=== PATIENT | female | born 1995 | race Caucasian/White ===

== ENCOUNTER 2018-05-23 00:42 | Emergency (ER) | payer OTHER ==
[2018-05-23] MEDS ORDERED: Sodium Chloride 0.9% 1000 ML 1,000 ML IV STA (01:12)
[2018-05-23] MEDS ORDERED: BENADRYL 50 MG/ML IV ONE (01:12)
[2018-05-23] MEDS ORDERED: Reglan 10 MG/2 ML IV ONE (01:12)
--- NOTE | 2018-05-23 01:17 | ERPHSYRPT ---
- History of Present Illness Time Seen by Provider: 05/23/18 01:08 Source: patient Exam Limitations: no limitations Patient Subjective Stated Complaint: pt states she has had a headache since early yesterday morning. Triage Nursing Assessment: pt alert and oriented, answers questions approp. pt ambulatory with steady gait noted. respirations nonlabored with lungs cta. skin pink warm and dry. pupls equal and reactive . no facial droop noted. Physician History: 22-year-old morbidly obese white female with history of anxiety, panic disorder , depression, migraines Arrives with complaint of left-sided headache nausea vomiting photophobia symptoms since yesterday. She denies any fevers. Past medical history includes anxiety, panic disorder, depression, migraines. Past surgical history includes tonsillectomy and adenoidectomy. . Social history positive for tobacco use patient denies alcohol or illicit drug use. Timing/Duration: yesterday Severity: moderate Modifying Factors: Improves With: nothing Associated Symptoms: nausea, vomiting, headaches, No abdominal pain, No shortness of breath, No heartburn, No diaphoresis, No cough, No chills, No chest pain, No fever, No loss of appetite, No malaise, No rash, No syncope, No seizure, No weakness Allergies/Adverse Reactions: latex Allergy (Mild, Verified 05/23/18 01:07) Rash Home Medications: No Reportable Medications [No Reported Medications] 05/23/18 [History] Hx Tetanus, Diphtheria Vaccination/Date Given: Yes Hx Influenza Vaccination/Date Given: No Hx Pneumococcal Vaccination/Date Given: No Immunizations Up to Date: Yes - Review of Systems Constitutional: No Fever, No Chills Eyes: Photophobia, No Discharge, No Eye Pain, No Eye Redness, No Itchy, No Tearing, No Vision Changes, No Double Vision, No Foreign Body Sensation Ears, Nose, & Throat: No Symptoms Respiratory: No Cough, No Dyspnea Cardiac: No Chest Pain, No Edema, No Syncope Abdominal/Gastrointestinal: No Abdominal Pain, No Nausea, No Vomiting, No Diarrhea Genitourinary Symptoms: No Dysuria Musculoskeletal: No Back Pain, No Neck Pain Skin: No Rash Neurological: Headache Psychological: No Symptoms Endocrine: No Symptoms All Other Systems: Reviewed and Negative - Past Medical History Pertinent Past Medical History: Yes Neurological History: No Pertinent History ENT History: No Pertinent History Cardiac History: No Pertinent History Respiratory History: No Pertinent History Endocrine Medical History: No Pertinent History Musculoskeletal History: No Pertinent History GI Medical History: No Pertinent History History: No Pertinent History Psycho-Social History: Anxiety, Bipolar, Depression, Panic Disorder Female Reproductive Disorders: No Pertinent History Other Medical History: swelling in lower ext with chronic wounds - Past Surgical History Past Surgical History: Yes Neuro Surgical History: No Pertinent History Cardiac: No Pertinent History Respiratory: No Pertinent History Gastrointestinal: No Pertinent History Genitourinary: No Pertinent History Musculoskeletal: No Pertinent History Female Surgical History: No Pertinent History, Section Other Surgical History: T&A - Social History Smoking Status: Current every day smoker How long have you smoked: 2 yr Exposure to second hand smoke: Yes Drug Use: none Patient Lives Alone: No - Female History Hx Last Menstrual Period: last month Hx Now: No - Nursing Vital Signs Nursing Vital Signs: Initial Vital Signs Temperature 98.7 F 05/23/18 00:56 Pulse Rate 100 H 05/23/18 00:56 Respiratory Rate 20 05/23/18 00:56 Blood Pressure 120/77 05/23/18 00:56 O2 Sat by Pulse Oximetry 97 05/23/18 00:56 Pain Scale Pain Intensity 4 - Physical Exam General Appearance: mild distress Eye Exam: PERRL/EOMI, eyes nml inspection, photophobia, other (fundi unremarkable) Ears, Nose, Throat Exam: normal ENT inspection, TMs normal, pharynx normal, moist mucous membranes Neck Exam: normal inspection, non-tender, supple, full range of motion Respiratory Exam: normal breath sounds, lungs clear, No respiratory distress Cardiovascular Exam: regular rate/rhythm, normal heart sounds, normal peripheral pulses Gastrointestinal/Abdomen Exam: soft, normal bowel sounds, No tenderness, No mass Back Exam: normal inspection, normal range of motion, No CVA tenderness, No vertebral tenderness Extremity Exam: normal inspection, normal range of motion, pelvis stable Neurologic Exam: alert, oriented x 3, cooperative, apartment property manager II-XII nml as tested, normal mood/affect, nml cerebellar function, nml station & gait, sensation nml, No motor deficits Skin Exam: normal color, warm, dry, No rash Lymphatic Exam: No adenopathy SpO2 Interpretation: normal (97%) SpO2: 97 Oxygen Delivery: Room Air Ordered Tests: Active Orders 24 hr Category Date Time Status IV Insertion STAT Care 05/23/18 01:12 Active Medication Summary Discontinued Medications Generic Name Dose Route Start Last Admin Trade Name Chitra PRN Reason Stop Dose Admin Diphenhydramine HCl 25 mg 05/23/18 01:12 05/23/18 01:42 Benadryl 50 Mg/Ml IV 05/23/18 01:13 25 mg STAT ONE Administration Diphenhydramine HCl Confirm 05/23/18 01:38 Benadryl 50 Mg/Ml Administered 05/23/18 01:39 Dose 50 mg .ROUTE .STK-MED ONE Sodium Chloride 1,000 mls @ 999 mls/hr 05/23/18 01:12 05/23/18 01:42 Sodium Chloride 0.9% 1000 Ml IV 05/23/18 02:12 999 mls/hr .Q1H1M STA Administration Sodium Chloride Confirm 05/23/18 01:39 Sodium Chloride 0.9% 1000 Ml Administered 05/23/18 01:40 Dose 1,000 mls @ ud .ROUTE .STK-MED ONE Metoclopramide HCl 10 mg 05/23/18 01:12 05/23/18 01:42 Reglan 10 Mg/2 Ml IV 05/23/18 01:13 10 mg STAT ONE Administration Metoclopramide HCl Confirm 05/23/18 01:39 Reglan 10 Mg/2 Ml Administered 05/23/18 01:40 Dose 10 mg .ROUTE .STK-MED ONE - Progress Progress: improved Progress Note: 05/23/18 02:31 22-year-old white female with history of migraines arrives with complaint of a headache for 1 day positive nausea positive photophobia Patient has been afebrile. Patient is given Reglan 10 mg Benadryl 25 mg 1 L of fluids. Patient is feeling much better not completely pain-free but markedly improved. Will go ahead and release patient. Patient to return home rest in a dark quiet room plenty of fluids. Follow-up with her family doctor if symptoms are recurrent. Return for acute distress or for severe symptoms. - Departure Time of Disposition: 02:33 Departure Disposition: Home Clinical Impression: Migraine headache Qualifiers: Migraine type: unspecified Status migrainosus presence: without status migrainosus Intractability: not intractable Qualified Code(s): G43.909 - Migraine, unspecified, not intractable, without status migrainosus Condition: Fair Critical Care Time: No Referrals: YAS LAM [Primary Care Provider] - Instructions: Headache, Adult (DC) Additional Instructions: . Return home rest in a dark quiet room. Plenty of fluids. Follow-up with your family doctor if symptoms are recurrent. Return for acute distress or for severe symptoms.
[2018-05-23] MEDS ORDERED: BENADRYL 50 MG/ML ONE (01:38)
[2018-05-23] MEDS ORDERED: Reglan 10 MG/2 ML ONE (01:39)
[2018-05-23] MEDS ORDERED: Sodium Chloride 0.9% 1000 ML 1,000 ML ONE (01:39)
[2018-05-23 02:08] VITALS: BP 111/50
[2018-05-23 02:52] VITALS: PULSE 92; O2SAT 100
== END 2018-05-23 02:53 | disposition home or self-care (01) ==
LOC: ED 00:42
DX: G43.909 Migraine, unspecified, not intractable, without status migrainosus (principal); R11.2 Nausea with vomiting, unspecified
CPT/HCPCS: 36000; 96365; 96374; 96375; 99284; J1200

== ENCOUNTER 2018-10-24 17:32 | Emergency (ER) | payer OTHER ==
--- NOTE | 2018-10-24 17:51 | ERPHSYRPT ---
- History of Present Illness Time Seen by Provider: 10/24/18 17:46 Source: patient, family Exam Limitations: no limitations Physician History: 22 y/o obese white female presents with known left upper molar tenderness. it "exploded" while eating chips today. denies fever. Timing/Duration: gradual onset Severity: mild ENT Location: dental Prearrival Treatment: no prearrival treatment Associated Symptoms: denies symptoms Allergies/Adverse Reactions: latex Allergy (Mild, Verified 10/24/18 17:37) Rash Hx Tetanus, Diphtheria Vaccination/Date Given: Yes Hx Influenza Vaccination/Date Given: No Hx Pneumococcal Vaccination/Date Given: No - Review of Systems Constitutional: No Symptoms Eyes: No Symptoms Ears, Nose, & Throat: Other (dental pain) Respiratory: No Symptoms Cardiac: No Symptoms Abdominal/Gastrointestinal: No Symptoms Genitourinary Symptoms: No Symptoms Musculoskeletal: No Symptoms Skin: No Symptoms Neurological: No Symptoms Psychological: No Symptoms Endocrine: No Symptoms Hematologic/Lymphatic: No Symptoms Immunological/Allergic: No Symptoms All Other Systems: Reviewed and Negative - Past Medical History Pertinent Past Medical History: Yes Neurological History: No Pertinent History ENT History: No Pertinent History Cardiac History: No Pertinent History Respiratory History: No Pertinent History Endocrine Medical History: No Pertinent History Musculoskeletal History: No Pertinent History GI Medical History: No Pertinent History History: No Pertinent History Psycho-Social History: Anxiety, Bipolar, Depression, Panic Disorder Female Reproductive Disorders: No Pertinent History Other Medical History: swelling in lower ext with chronic wounds - Past Surgical History Past Surgical History: Yes Neuro Surgical History: No Pertinent History Cardiac: No Pertinent History Respiratory: No Pertinent History Gastrointestinal: No Pertinent History Genitourinary: No Pertinent History Musculoskeletal: No Pertinent History Female Surgical History: No Pertinent History, Section Other Surgical History: T&A - Social History Smoking Status: Current every day smoker How long have you smoked: 2 yr Exposure to second hand smoke: Yes Drug Use: none Patient Lives Alone: No - Physical Exam General Appearance: no apparent distress, alert, anxiety Eye Exam: bilateral eye: normal inspection, PERRL, EOMI Ear Exam: bilateral ear: auricle normal Nasal Exam: normal inspection Throat Exam: dental tenderness (left upper molar with fracture) Neck Exam: normal inspection, non-tender, supple, full range of motion Cardiovascular/Respiratory Exam: chest non-tender, normal breath sounds, regular rate/rhythm Abdominal Exam: non-tender, soft, no organomegaly, no hernia, No guarding, No tenderness Neurologic Exam: alert, oriented x 3, cooperative, dyeing machine tender II-XII nml as tested Skin Exam: normal color, warm, dry SpO2 Interpretation: normal Oxygen Delivery: Room Air - Departure Time of Disposition: 17:52 Departure Disposition: Home Clinical Impression: Tooth fracture, Pain, dental Condition: Stable Critical Care Time: No Referrals: LORI KOHLI [Primary Care Provider] - Additional Instructions: use tylenol and ibuprofenf for pain. follow up with dentist tomorrow to arrange definitive care. Prescriptions: Amoxicillin 500 mg Cap [Amoxil 500 mg] 500 mg PO TID #30 capsule
[2018-10-24] MEDS ORDERED: Rocephin 1000 MG INJ IM ONE (17:56)
[2018-10-24] MEDS ORDERED: Rocephin 1000 MG INJ ONE (18:00)
[2018-10-24] MEDS ORDERED: XYLOCAINE 1% HCL 20 ML MDV ONE (18:00)
[2018-10-24 18:59] VITALS: BP 123/78; PULSE 90; O2SAT 98
== END 2018-10-24 18:58 | disposition home or self-care (01) ==
LOC: ED 17:32
DX: K08.89 Other specified disorders of teeth and supporting structures (principal); S02.5XXA Fracture of tooth (traumatic), initial encounter for closed fracture; S06.9X0A Unspecified intracranial injury without loss of consciousness, initial encounter; F31.9 Bipolar disorder, unspecified; Z72.0 Tobacco use
CPT/HCPCS: 96372; 99283; J0696

== ENCOUNTER 2019-05-23 05:44 | Emergency (ER) | payer OTHER ==
--- NOTE | 2019-05-23 06:20 | ERPHSYRPT ---
- History of Present Illness Time Seen by Provider: 05/23/19 06:15 Source: patient, family Exam Limitations: no limitations Patient Subjective Stated Complaint: pt states she has been having palpitations , some shortness of breath, and not feeling well for the past hour. pt states had cold with nasal congestion, coughing, sneezing Triage Nursing Assessment: pt alert and oreinted, answers questions approp. pt ambualtoryw ith steady gait noted. respirations nonlabored with lungs cta. pt reports productive cough at home. none noted at this time. skin pink warm and dry. Physician History: 23 y/o morbidly obese white female who vapes, presents with nasal and chest congestion with associated coughing intermittently for 3 days. sx worse this am. cp only with coughing. mild soa. no abd pain. no calf pain. has h/o bronchitis and pneumonia. no fevers. Timing/Duration: day(s) (3), intermittent, worse Cough Quality/Degree: dry cough Possible Cause: occasional episodes Modifying Factors: Improves With: coughing Associated Symptoms: cough, nasal congestion, shortness of breath (mild), No fever, No chills, No chest pain/soreness, No dizziness Allergies/Adverse Reactions: latex Allergy (Mild, Verified 05/23/19 06:00) Rash Hx Tetanus, Diphtheria Vaccination/Date Given: Yes Hx Influenza Vaccination/Date Given: No Hx Pneumococcal Vaccination/Date Given: No Immunizations Up to Date: Yes - Review of Systems Constitutional: No Symptoms Eyes: No Symptoms Ears, Nose, & Throat: No Symptoms Respiratory: Cough, No Wheezing Cardiac: Chest Pain (with coughing only) Abdominal/Gastrointestinal: No Symptoms Genitourinary Symptoms: No Symptoms Musculoskeletal: No Symptoms Skin: No Symptoms Neurological: No Symptoms Psychological: No Symptoms Endocrine: No Symptoms Hematologic/Lymphatic: No Symptoms Immunological/Allergic: No Symptoms All Other Systems: Reviewed and Negative - Past Medical History Pertinent Past Medical History: Yes Neurological History: No Pertinent History ENT History: No Pertinent History Cardiac History: No Pertinent History Respiratory History: No Pertinent History Endocrine Medical History: No Pertinent History, Diabetes Type II Musculoskeletal History: No Pertinent History GI Medical History: No Pertinent History History: No Pertinent History Psycho-Social History: Anxiety, Bipolar, Depression, Panic Disorder Female Reproductive Disorders: No Pertinent History Other Medical History: swelling in lower ext with chronic wounds - Past Surgical History Past Surgical History: Yes Neuro Surgical History: No Pertinent History Cardiac: No Pertinent History Respiratory: No Pertinent History Gastrointestinal: No Pertinent History Genitourinary: No Pertinent History Musculoskeletal: No Pertinent History Female Surgical History: No Pertinent History, Section Other Surgical History: T&A - Social History Smoking Status: Current every day smoker How long have you smoked: 2 yr Exposure to second hand smoke: Yes Drug Use: none Patient Lives Alone: No - Female History Hx Last Menstrual Period: irregular Hx Now: No - Nursing Vital Signs Nursing Vital Signs: Initial Vital Signs Temperature 98.1 F 05/23/19 05:47 Pulse Rate 102 H 05/23/19 05:47 Respiratory Rate 20 05/23/19 05:47 Blood Pressure 147/82 05/23/19 05:47 O2 Sat by Pulse Oximetry 100 05/23/19 05:47 Pain Scale Pain Intensity 3 - Physical Exam General Appearance: mild distress, alert, anxiety, obese Eye Exam: PERRL/EOMI, eyes nml inspection Ears, Nose, Throat Exam: normal ENT inspection, moist mucous membranes Neck Exam: normal inspection, non-tender, supple, full range of motion Respiratory Exam: normal breath sounds, lungs clear, airway intact, No chest tenderness, No respiratory distress Cardiovascular Exam: regular rate/rhythm, normal heart sounds, normal peripheral pulses Gastrointestinal/Abdomen Exam: soft, normal bowel sounds, No tenderness Pelvic Exam: not done Rectal Exam: not done Back Exam: normal inspection, normal range of motion, No CVA tenderness, No vertebral tenderness Extremity Exam: normal inspection, normal range of motion, pelvis stable Neurologic Exam: alert, oriented x 3, cooperative, car coupler II-XII nml as tested Skin Exam: normal color, warm, dry Lymphatic Exam: No adenopathy SpO2 Interpretation: normal SpO2: 100 O2 Delivery: Room Air - Course Nursing assessment & vital signs reviewed: Yes - Progress Progress: improved, re-examined Air Movement: good Blood Culture(s) Obtained: No Antibiotics given: Yes Counseled pt/family regarding: diagnosis, need for follow-up - Departure Departure Disposition: Home Clinical Impression: Bronchitis Condition: Stable Critical Care Time: No Referrals: ALF VELEZ [Primary Care Provider] - Additional Instructions: drink plenty of fluids. avoid vaping and any other kind of smoke. follow up with primary doctor for further management. take medications as prescribed Prescriptions: Albuterol 8 gm Mdi Hfa [Ventolin Hfa MDI] 8 gm IH Q4H #1 hfa.aer.ad Azithromycin 250 mg [Zithromax 250 MG TABLET] 250 mg PO ZPACK #6 tablet Hydrocodone Bit/Acetaminophen [Hydrocodone-Acetaminophen Soln] 10 ml PO Q6H # 120 ml Prednisone 10 mg [Deltasone 10 mg] 10 mg PO TID #12 tablet
[2019-05-23] MEDS ORDERED: ROCEPHIN 1 Gm-D5w 50 ml Bag** 1 G/50 ML IVPB IV ONE (06:28)
[2019-05-23] MEDS ORDERED: solu-MEDROL 125 MG ONE (06:28)
[2019-05-23] MEDS ORDERED: HYDROCODONE-ACETAMIN 2.5-108/5 ML SOLUTION ONE (06:28)
[2019-05-23] MEDS: HYDROCODONE-ACETAMIN 2.5-108/5 ML SOLUTION PO STA (06:30)
[2019-05-23] MEDS: ROCEPHIN 1 Gm-D5w 50 ml Bag** 1 G/50 ML IVPB IV STA (06:31)
[2019-05-23] MEDS: solu-MEDROL 125 MG IV ONE (06:31)
[2019-05-23 06:53] VITALS: BP 129/99; PULSE 94; O2SAT 97
== END 2019-05-23 07:05 | disposition home or self-care (01) ==
LOC: ED 05:44
DX: J40 Bronchitis, not specified as acute or chronic (principal)
CPT/HCPCS: 36000; 96365; 96374; 99284; J0696; J2930; A9270-GY

== ENCOUNTER 2019-09-19 13:15 | Emergency (ER) | payer OTHER ==
--- NOTE | 2019-09-19 13:21 | ERPHSYRPT ---
- History of Present Illness Time Seen by Provider: 09/19/19 13:20 Source: patient Exam Limitations: no limitations Physician History: 23 y/o morbidly obese white female presents to one day h/o localized redness and tenderness to left post lower leg. mild localized swelling as well. pt has bilat lower ext chronic venous stasis dz/ulcerations and chronic bilat lower ext lymphedema Method of Injury: other (no injury) Occurred: yesterday (noticed) Severity of Pain-Max: mild Severity of Pain-Current: mild Lower Extremities Pain: leg: left (posteriorly) Modifying Factors: Improves With: movement Allergies/Adverse Reactions: latex Allergy (Mild, Verified 09/19/19 13:27) Rash Home Medications: Cetirizine HCl [All Day Allergy] 10 mg PO DAILY 09/19/19 [History] Dextrose/Vitamin D3 [Relion Glucose 15 Gram Liq] 60 ml PO DAILY 09/19/19 [ History] Ergocalciferol (Vitamin D2) [Vitamin D2] 50,000 units PO WEEKLY 09/19/19 [ History] Ertugliflozin Pidolate [Steglatro] 5 mg PO DAILY 09/19/19 [History] Fluticasone/Vilanterol [Breo Ellipta 100-25 Mcg INH] 1 spray INTRANASAL DAILY [History] Furosemide 20 mg [Lasix 20 mg] 20 mg PO DAILY 09/19/19 [History] Gabapentin 300 mg PO DAILY 09/19/19 [History] Liraglutide [Victoza 2-Warner] 0.6 mg PO DAILY 09/19/19 [History] Metformin HCl 500 mg [Glucophage 500 MG] 500 mg PO DAILY 09/19/19 [History ] Omeprazole 40 mg PO DAILY 09/19/19 [History] Potassium Chloride 10 Meq Tab* [Klor Con 10 MEQ] 10 meq PO DAILY 09/19/19 [ History] Ropinirole HCl 1 mg PO DAILY 09/19/19 [History] Scopolamine 1.5 mg Patch [Transderm Scop 1.5MG Patch] 1.5 mg TRANSTRAC Q12H PRN PRN MDD 3 09/19/19 [History] Sumatriptan Dillard/Menthol/Camphor [Migranow Kit] 50 mg PO DAILY 09/19/19 [History] Topiramate 25 mg PO DAILY 09/19/19 [History] Vitamin B Complex [B Complex] 1 tablet PO DAILY 09/19/19 [History] Hx Tetanus, Diphtheria Vaccination/Date Given: Yes Hx Influenza Vaccination/Date Given: No Hx Pneumococcal Vaccination/Date Given: No - Review of Systems Constitutional: No Symptoms Eyes: No Symptoms Ears, Nose, & Throat: No Symptoms Respiratory: No Symptoms Cardiac: No Symptoms Abdominal/Gastrointestinal: No Symptoms Genitourinary Symptoms: No Symptoms Musculoskeletal: No Symptoms Skin: Cellulitis Neurological: No Symptoms Psychological: No Symptoms Endocrine: No Symptoms Hematologic/Lymphatic: No Symptoms Immunological/Allergic: No Symptoms All Other Systems: Reviewed and Negative - Past Medical History Pertinent Past Medical History: Yes Neurological History: No Pertinent History ENT History: No Pertinent History Cardiac History: No Pertinent History Respiratory History: No Pertinent History Endocrine Medical History: No Pertinent History, Diabetes Type II Musculoskeletal History: No Pertinent History GI Medical History: No Pertinent History History: No Pertinent History Psycho-Social History: Anxiety, Bipolar, Depression, Panic Disorder Female Reproductive Disorders: No Pertinent History Other Medical History: swelling in lower ext with chronic wounds - Past Surgical History Past Surgical History: Yes Neuro Surgical History: No Pertinent History Cardiac: No Pertinent History Respiratory: No Pertinent History Gastrointestinal: No Pertinent History Genitourinary: No Pertinent History Musculoskeletal: No Pertinent History Female Surgical History: No Pertinent History, Section Other Surgical History: T&A - Social History Smoking Status: Current every day smoker How long have you smoked: 2 yr Exposure to second hand smoke: Yes Drug Use: none Patient Lives Alone: No - Nursing Vital Signs Nursing Vital Signs: Initial Vital Signs Temperature 98.1 F 09/19/19 13:19 Pulse Rate 110 H 09/19/19 13:19 Respiratory Rate 18 09/19/19 13:19 Blood Pressure 137/104 09/19/19 13:19 O2 Sat by Pulse Oximetry 98 09/19/19 13:19 - Physical Exam General Appearance: no apparent distress, alert, anxiety Eyes, Ears, Nose, Throat Exam: normal ENT inspection, moist mucous membranes Neck Exam: normal inspection, non-tender, supple, full range of motion Cardiovascular/Respiratory Exam: chest non-tender Gastrointestinal/Abdominal Exam: non-tender Back Exam: normal inspection, normal range of motion, No CVA tenderness, No vertebral tenderness Hips Exam: bilateral: non-tender, normal inspection, normal range of motion, no evidence of injury Legs Exam: right leg: non-tender, left leg: soft tissue tenderness (lymphedema; localized cellulitis post calve), swelling, bilateral leg: normal range of motion, no evidence of injury Knees Exam: bilateral knee: non-tender, normal inspection, normal range of motion, no evidence of injury Ankle Exam: bilateral ankle: non-tender, normal inspection, normal range of motion, no evidence of injury Neuro/Tendon Exam: normal sensation, normal motor functions, normal tendon functions Mental Status Exam: alert, oriented x 3, cooperative Skin Exam: other (see above) SpO2 Interpretation: normal O2 Delivery: Room Air - Course Nursing assessment & vital signs reviewed: Yes Ordered Tests: Active Orders 24 hr Category Date Time Status VENOUS UNILAT/LIMITED EXTREMIT [US] Stat Exams 09/19/19 13:41 Completed - Progress Progress: unchanged Progress Note: 09/19/19 14:42 left leg venous u/s-negative for dvt Counseled pt/family regarding: diagnosis, need for follow-up, rad results - Departure Departure Disposition: Home Clinical Impression: Cellulitis Condition: Stable Critical Care Time: No Referrals: [facility] [Primary Care Provider] - Additional Instructions: keep legs clean daily with soap and water. moisturize legs twice daily with unscented lotion. follow up with primary doctor for further management Prescriptions: Smz/Tmp Ds Tablet [Bactrim Ds Tablet] 1 udtab PO BID #14 tablet
--- NOTE | 2019-09-19 14:22 | XRAY ---
Indication: Left leg pain. Two-dimensional sonogram and color Doppler imaging of the major venous vessels of the left leg was performed. Comparison: None No thrombus seen in the examined deep venous vessels of the left leg including greater saphenous vein. Veins demonstrate normal compressibility. Venous waveforms are normal with and without augmentation. Impression: Left leg negative for DVT.
[2019-09-19] MEDS ORDERED: Rocephin 1000 MG INJ IM ONE (14:45)
[2019-09-19] MEDS ORDERED: BACTRIM DS TABLET PO ONE ×2 (14:45→15:03)
[2019-09-19] MEDS ORDERED: Rocephin 1000 MG INJ ONE (15:03)
[2019-09-19] MEDS ORDERED: XYLOCAINE 1% HCL 20 ML MDV ONE (15:03)
[2019-09-19 15:28] VITALS: BP 140/88; PULSE 97; O2SAT 99
== END 2019-09-19 15:27 | disposition home or self-care (01) ==
LOC: ED 13:15
DX: L03.116 Cellulitis of left lower limb (principal); Z79.899 Other long term (current) drug therapy; E11.9 Type 2 diabetes mellitus without complications; M79.662 Pain in left lower leg
CPT/HCPCS: 93971; 96372; 99284; J0696; A9270-GY

== ENCOUNTER 2019-10-15 13:12 | Emergency (ER) | payer OTHER ==
[2019-10-15] MEDS ORDERED: solu-MEDROL 125 MG IV ONE (13:44)
[2019-10-15] MEDS ORDERED: DUONEB 0.5-3 MG/3 ml Neb IH ONE ×2 (13:44→14:03)
[2019-10-15] MEDS ORDERED: BABY ASPIRIN 81 MG CHEW PO ONE (13:45)
--- NOTE | 2019-10-15 13:51 | ERPHSYRPT ---
- History of Present Illness Time Seen by Provider: 10/15/19 13:26 Source: patient, family Exam Limitations: no limitations Patient Subjective Stated Complaint: pt here for sob ,chest pressure and HTN today, she was seen sunday by her dr and was given additional b/p that she has not started yet Triage Nursing Assessment: pt alert, walked in, resp esay, skin w/d/p.abd soft, moves all ext well Physician History: 23 yo morbidily obese with HTN/DM presented with gradually wincreasing SOB for 1 week with essentially minimal productive cough and today is feeling heaviness/ tightness in the chest . symptoms are more with activity and partial relief with rest. no fever but chills. no leg swelling or h/o DVT./ Timing/Duration: week(s) (1), intermittent, worse Activities at Onset: activity Severity of Dyspnea-Max: moderate Severity of Dyspnea-Current: moderate Possible Cause: unknown cause Modifying Factors: Improves With: activity, coughing Associated Symptoms: cough, chest pain/discomfort, heaviness, No fever, No dizziness, No heart racing, No leg swelling, No painful breathing Allergies/Adverse Reactions: latex Allergy (Mild, Verified 10/15/19 13:29) Rash Home Medications: Cetirizine HCl [All Day Allergy] 10 mg PO DAILY 09/19/19 [History] Dextrose/Vitamin D3 [Relion Glucose 15 Gram Liq] 60 ml PO DAILY 09/19/19 [ History] Ergocalciferol (Vitamin D2) [Vitamin D2] 50,000 units PO WEEKLY 09/19/19 [ History] Ertugliflozin Pidolate [Steglatro] 5 mg PO DAILY 09/19/19 [History] Fluticasone/Vilanterol [Breo Ellipta 100-25 Mcg INH] 1 spray INTRANASAL DAILY [History] Furosemide 20 mg [Lasix 20 mg] 20 mg PO DAILY 09/19/19 [History] Gabapentin 300 mg PO DAILY 09/19/19 [History] Liraglutide [Victoza 2-Warner] 0.6 mg PO DAILY 09/19/19 [History] Metformin HCl 500 mg [Glucophage 500 MG] 500 mg PO DAILY 09/19/19 [History ] Omeprazole 40 mg PO DAILY 09/19/19 [History] Potassium Chloride 10 Meq Tab* [Klor Con 10 MEQ] 10 meq PO DAILY 09/19/19 [ History] Ropinirole HCl 1 mg PO DAILY 09/19/19 [History] Scopolamine 1.5 mg Patch [Transderm Scop 1.5MG Patch] 1.5 mg TRANSTRAC Q12H PRN PRN MDD 3 09/19/19 [History] Sumatriptan Dillard/Menthol/Camphor [Migranow Kit] 50 mg PO DAILY 09/19/19 [History] Topiramate 25 mg PO DAILY 09/19/19 [History] Vitamin B Complex [B Complex] 1 tablet PO DAILY 09/19/19 [History] Hx Tetanus, Diphtheria Vaccination/Date Given: Yes Hx Influenza Vaccination/Date Given: No Hx Pneumococcal Vaccination/Date Given: No Immunizations Up to Date: Yes - Review of Systems Constitutional: Chills, Fatigue Eyes: No Symptoms Ears, Nose, & Throat: Nose Congestion, Throat Pain Respiratory: Cough, Dyspnea, Dyspnea on Exertion (RIZZO), Wheezing Cardiac: Chest Pain Abdominal/Gastrointestinal: No Symptoms Genitourinary Symptoms: No Symptoms Musculoskeletal: No Symptoms Skin: No Symptoms Neurological: No Symptoms Psychological: No Symptoms Endocrine: No Symptoms Hematologic/Lymphatic: No Symptoms Immunological/Allergic: No Symptoms - Past Medical History Pertinent Past Medical History: Yes Neurological History: No Pertinent History ENT History: No Pertinent History Cardiac History: No Pertinent History, Hypertension Respiratory History: No Pertinent History Endocrine Medical History: No Pertinent History, Diabetes Type II Musculoskeletal History: No Pertinent History GI Medical History: No Pertinent History History: No Pertinent History Psycho-Social History: Anxiety, Bipolar, Depression, Panic Disorder Female Reproductive Disorders: No Pertinent History Other Medical History: swelling in lower ext with chronic wounds - Past Surgical History Past Surgical History: Yes Neuro Surgical History: No Pertinent History Cardiac: No Pertinent History Respiratory: No Pertinent History Gastrointestinal: No Pertinent History Genitourinary: No Pertinent History Musculoskeletal: No Pertinent History Female Surgical History: No Pertinent History, Section Other Surgical History: T&A - Social History Smoking Status: Former smoker How long have you smoked: 2 yr Exposure to second hand smoke: Yes Drug Use: none Patient Lives Alone: No - Female History Hx Last Menstrual Period: 2 weeks ago Hx Now: No - Nursing Vital Signs Nursing Vital Signs: Initial Vital Signs Temperature 97.4 F 10/15/19 13:24 Pulse Rate 91 H 10/15/19 13:24 Respiratory Rate 22 10/15/19 13:24 Blood Pressure 158/89 10/15/19 13:24 O2 Sat by Pulse Oximetry 100 10/15/19 13:24 Pain Scale Pain Intensity 0 - Physical Exam General Appearance: no apparent distress Eye Exam: PERRL/EOMI Ears, Nose, Throat Exam: hearing grossly normal, normal ENT inspection Neck Exam: normal inspection, non-tender, supple Respiratory Exam: diminished breath sounds, wheezing Cardiovascular/Chest Exam: normal heart sounds, regular rate/rhythm Abdominal/Gastrointestinal Exam: soft, normal bowel sounds, No tenderness Extremity Exam: non-tender, normal range of motion Neurologic Exam: alert, oriented x 3, cooperative Skin Exam: normal color SpO2 Interpretation: normal SpO2: 100 O2 Delivery: Room Air - Course Nursing assessment & vital signs reviewed: Yes EKG Interpreted by Me: RATE (100), NORMAL AXIS, NORMAL INTERVALS, NORMAL QRS Ordered Tests: Active Orders 24 hr Category Date Time Status Play Therapist STAT Care 10/15/19 13:45 Active EKG-ER Only STAT Care 10/15/19 13:44 Active IV Insertion STAT Care 10/15/19 13:44 Active CHEST 2 VIEWS (PA AND LAT) Stat Exams 10/15/19 13:44 Completed CHEST WITH CONTRAST [CT] Stat Exams 10/15/19 15:15 Completed CBC W DIFF Stat Lab 10/15/19 14:05 Completed CMP Stat Lab 10/15/19 14:05 Completed D-DIMER QUANTITATIVE Stat Lab 10/15/19 14:05 Completed HCG,QUALITATIVE URINE Stat Lab 10/15/19 14:00 Completed NT PRO BNP Stat Lab 10/15/19 14:05 Completed TROPONIN Q3H Lab 10/15/19 14:05 Completed TROPONIN Q3H Lab 10/15/19 16:45 Ordered TROPONIN Q3H Lab 10/15/19 19:45 Ordered TROPONIN Q3H Lab 10/15/19 22:45 Ordered Peak Expiratory Flow Rate ONCE RT 10/15/19 14:13 Active Respiratory Therapy Assessment DAILY RT 10/15/19 14:13 Active Medication Summary Discontinued Medications Generic Name Dose Route Start Last Admin Trade Name Freq PRN Reason Stop Dose Admin Albuterol/Ipratropium 3 ml 10/15/19 13:44 10/15/19 14:08 Duoneb 0.5-3 Mg/3 Ml Neb IH 10/15/19 13:45 3 ml STAT ONE Administration Albuterol/Ipratropium Confirm 10/15/19 14:03 Duoneb 0.5-3 Mg/3 Ml Neb Administered 10/15/19 14:04 Dose 3 ml IH .STK-MED ONE Aspirin 324 mg 10/15/19 13:45 10/15/19 14:04 Baby Aspirin 81 Mg Chew PO 10/15/19 13:46 324 mg STAT ONE Administration Aspirin Confirm 10/15/19 14:03 Baby Aspirin 81 Mg Chew Administered 10/15/19 14:04 Dose 324 mg .ROUTE .STK-MED ONE Methylprednisolone Sodium Succinate 125 mg 10/15/19 13:44 10/15/19 14:03 Solu-Medrol 125 Mg IV 10/15/19 13:45 125 mg STAT ONE Administration Methylprednisolone Sodium Succinate Confirm 10/15/19 14:03 Solu-Medrol 125 Mg Administered 10/15/19 14:04 Dose 125 mg .ROUTE .STK-MED ONE Lab/Rad Data: Laboratory Result Diagrams 10/15/19 14:05 10/15/19 14:05 Laboratory Results 10/15/19 10/15/19 10/15/19 Range/Units 14:05 14:05 14:05 WBC (4.0-10.5) K/mm3 RBC (4.1-5.4) M/mm3 Hgb (12.0-16.0) gm/dl Hct (35-47) % MCV (78-100) fl MCH (26-32) pg MCHC (32-36) g/dl RDW (11.5-14.0) % Plt Count (150-450) K/mm3 MPV (7.5-11.0) fl Gran % (36.0-66.0) % Eos # (Auto) (0-0.5) Absolute Lymphs (auto) (1.0-4.6) Absolute Monos (auto) (0.0-1.3) Lymphocytes % (24.0-44.0) % Monocytes % (0.0-12.0) % Eosinophils % (0.00-5.0) % Basophils % (0.0-0.4) % Absolute Granulocytes (1.4-6.9) Basophils # (0-0.4) D-Dimer 653 H* (215-500) ng/mL Sodium (137-145) mmol/L Potassium (3.5-5.1) mmol/L Chloride (98-107) mmol/L Carbon Dioxide (22-30) mmol/L Anion Gap (5-15) MEQ/L BUN (7-17) mg/dL Creatinine (0.52-1.04) mg/dL Estimated GFR ML/MIN Glucose (74-106) mg/dL Calcium (8.4-10.2) mg/dL Total Bilirubin (0.2-1.3) mg/dL AST (14-36) U/L ALT (0-35) U/L Alkaline Phosphatase (38-126) U/L Troponin I < 0.012 (0.000-0.034) ng/mL NT-Pro-B Natriuret Pep (0-450) pg/mL Serum Total Protein (6.3-8.2) g/dL Albumin (3.5-5.0) g/dL Urine HCG, Qual (Negative) Influenza Type A Ag NEGATIVE (NEGATIVE) Influenza Type B Ag NEGATIVE (NEGATIVE) RSV (PCR) NEGATIVE (Negative) 10/15/19 10/15/19 10/15/19 Range/Units 14:05 14:05 14:00 WBC 6.1 (4.0-10.5) K/mm3 RBC 4.73 (4.1-5.4) M/mm3 Hgb 12.3 (12.0-16.0) gm/dl Hct 39.1 (35-47) % MCV 82.7 (78-100) fl MCH 26.0 (26-32) pg MCHC 31.5 L (32-36) g/dl RDW 14.8 H (11.5-14.0) % Plt Count 213 (150-450) K/mm3 MPV 10.3 (7.5-11.0) fl Gran % 64.0 (36.0-66.0) % Eos # (Auto) 0.29 (0-0.5) Absolute Lymphs (auto) 1.43 (1.0-4.6) Absolute Monos (auto) 0.44 (0.0-1.3) Lymphocytes % 23.6 L (24.0-44.0) % Monocytes % 7.3 (0.0-12.0) % Eosinophils % 4.8 (0.00-5.0) % Basophils % 0.3 (0.0-0.4) % Absolute Granulocytes 3.88 (1.4-6.9) Basophils # 0.02 (0-0.4) D-Dimer (215-500) ng/mL Sodium 142 (137-145) mmol/L Potassium 3.7 (3.5-5.1) mmol/L Chloride 106 (98-107) mmol/L Carbon Dioxide 29 (22-30) mmol/L Anion Gap 10.8 (5-15) MEQ/L BUN 8 (7-17) mg/dL Creatinine 0.48 L (0.52-1.04) mg/dL Estimated GFR > 60.0 ML/MIN Glucose 107 H (74-106) mg/dL Calcium 9.2 (8.4-10.2) mg/dL Total Bilirubin 0.50 (0.2-1.3) mg/dL AST 61 H (14-36) U/L ALT 90 H (0-35) U/L Alkaline Phosphatase 63 (38-126) U/L Troponin I (0.000-0.034) ng/mL NT-Pro-B Natriuret Pep 62.9 (0-450) pg/mL Serum Total Protein 9.1 H (6.3-8.2) g/dL Albumin 4.2 (3.5-5.0) g/dL Urine HCG, Qual NEGATIVE (Negative) Influenza Type A Ag (NEGATIVE) Influenza Type B Ag (NEGATIVE) RSV (PCR) (Negative) - Progress Progress: improved, re-examined Air Movement: fair Progress Note: R/O ACS, PNA, PE , FEELING BETTER AFTER SYMPTOMATIC TREATMENT IN ER. SX ARE MORE OF INFECTIOUS ETIOLOGY PROBABLY VIRAL AND WOULD PLACE ON PREDNISONE. DONT THINK SHE NEEDS 2ND TROP DURATION OF SX RULE ITSELF OUT AND ALSO SHE IS LOW HEART SCORE. COUNSELED AND IS STABLE FOR DC Antibiotics given: No Counseled pt/family regarding: lab results, diagnosis, need for follow-up, rad results - Departure Departure Disposition: Home Clinical Impression: Bronchitis Condition: Stable Critical Care Time: No Referrals: [facility] [NON-STAFF PHY W/O PRIVILEGES] - Follow Up with PCP/3 days Instructions: Shortness of Breath (Dyspnea) (DC) Additional Instructions: CONTINUE USING INHALER. MONITOR YOUR BLOOD SUGAR REGULARLY WHILE ON STEROIDS. RETURN TO ER FOR ANY WORSENING. Prescriptions: Prednisone 20 mg [Deltasone 20 mg] 60 mg PO DAILY #15 tablet
[2019-10-15] MEDS ORDERED: BABY ASPIRIN 81 MG CHEW ONE (14:03)
[2019-10-15] MEDS ORDERED: solu-MEDROL 125 MG ONE (14:03)
[2019-10-15 14:16] LABS: Absolute Neutrophil Ct (ANC) 3.88 (1.4-6.9); BASOPHIL % 0.3 % (0.0-0.4); Basophil (Absolute #) 0.02 (0-0.4); Eosinophil % 4.8 % (0.00-5.0); Eosinophil (Absolute #) 0.29 (0-0.5); Hematocrit 39.1 % (35-47); Hemoglobin 12.3 gm/dl (12.0-16.0); Lymphocyte (Absolute #) 1.43 (1.0-4.6); Lymphocytes % 23.6 % (24.0-44.0); Mean Cell Volume 82.7 fl (78-100); Mean Corpuscular Hgb Concent. 31.5 g/dl (32-36); Mean Platelet Volume 10.3 fl (7.5-11.0); Monocyte (Absolute #) 0.44 (0.0-1.3); Monocytes % 7.3 % (0.0-12.0); Platelet Count 213 K/mm3 (150-450); Red Blood Count 4.73 M/mm3 (4.1-5.4); Red Cell Distribution Width 14.8 % (11.5-14.0); White Blood Count 6.1 K/mm3 (4.0-10.5)
[2019-10-15 14:17] VITALS: O2SAT 100
--- NOTE | 2019-10-15 14:51 | XRAY ---
Indication: Pneumonia. Comparison: April 17, 2019. PA/lateral chest again demonstrates normal heart and lungs. Bony thorax intact. No new/acute findings.
[2019-10-15 14:52] LABS: ALBUMIN 4.2 g/dL (3.5-5.0); ALKALINE PHOSPHATASE 63 U/L (38-126); ANION GAP 10.8 MEQ/L (5-15); BLOOD UREA NITROGEN 8 mg/dL (7-17); CHLORIDE 106 mmol/L (98-107); Calcium 9.2 mg/dL (8.4-10.2); Carbon Dioxide 29 mmol/L (22-30); Creatinine 1 0.48 mg/dL (0.52-1.04); Glucose 107 mg/dL (74-106); NT PRO BNP 62.9 pg/mL (0-450); Potassium 3.7 mmol/L (3.5-5.1); SGOT/AST 61 U/L (14-36); SGPT/ALT 90 U/L (0-35); SODIUM 142 mmol/L (137-145); Total Protein 9.1 g/dL (6.3-8.2)
[2019-10-15 14:53] LABS: INFLUENZA A NEGATIVE (NEGATIVE); INFLUENZA B NEGATIVE (NEGATIVE); RESPIRATORY SYNCTIAL VIRUS NEGATIVE (Negative)
--- NOTE | 2019-10-15 16:03 | XRAY ---
Indication: Short of breath, heavy chest, and high blood pressure. Elevated d-dimer. Multiple contiguous axial images obtained through the chest using 100 cc Isovue 370 contrast and PE protocol. Comparison: None There is suboptimal opacification of the pulmonary arteries limiting evaluation of the lobar and segmental branches. No obvious central pulmonary embolus. Heart is not enlarged. Aorta is normal in course and caliber. No pathologic mediastinal/hilar lymphadenopathy. Lungs inflated with small left lower lobe calcified granuloma. No suspicious pulmonary mass, infiltrate, or effusion. Bony thorax intact. Limited upper abdomen demonstrates fatty liver and 15 cm splenomegaly. Impression: 1. Pulmonary embolus evaluation limited due to suboptimal opacification. No obvious central pulmonary embolus. 2. No acute cardiopulmonary abnormalities. 3. Incidental left lower lobe calcified granuloma, fatty liver, and splenomegaly.
[2019-10-15 16:56] VITALS: BP 138/81; PULSE 92
== END 2019-10-15 17:16 | disposition home or self-care (01) ==
LOC: ED 13:12
DX: J40 Bronchitis, not specified as acute or chronic (principal)
CPT/HCPCS: 36000; 36415; 71046; 71260; 80053; 83880; 84484; 84703; 85025; 85379; 87631; 93005; 93041; 94150; 94640; 96374; 99284; J2930; A9270-GY

== ENCOUNTER 2019-11-26 22:06 | Emergency (ER) | payer OTHER ==
--- NOTE | 2019-11-26 22:32 | ERPHSYRPT ---
- History of Present Illness Time Seen by Provider: 11/26/19 22:32 Source: patient, family Exam Limitations: no limitations Physician History: This is a morbidly obese white female with a history of diabetes and palpitations in the past. Patient states that her loading supervisor, Dr. Bernard will has worked her up for this condition. It has been determined that caffeine precipitates her palpitations. Today she drank a 16 ounce iced tea. Patient denies jose eduardo chest pain or shortness of breath. However when the palpitations came she could feel the heart beat drop. Patient denies abdominal pain. On arrival into the emergency room, her symptoms have subsided Timing/Duration: today Severity: mild Associated Symptoms: denies symptoms Allergies/Adverse Reactions: latex Allergy (Mild, Verified 10/15/19 13:29) Rash Home Medications: Cetirizine HCl [All Day Allergy] 10 mg PO DAILY 09/19/19 [History] Dextrose/Vitamin D3 [Relion Glucose 15 Gram Liq] 60 ml PO DAILY 09/19/19 [ History] Ergocalciferol (Vitamin D2) [Vitamin D2] 50,000 units PO WEEKLY 09/19/19 [ History] Ertugliflozin Pidolate [Steglatro] 5 mg PO DAILY 09/19/19 [History] Fluticasone/Vilanterol [Breo Ellipta 100-25 Mcg INH] 1 spray INTRANASAL DAILY [History] Furosemide 20 mg [Lasix 20 mg] 20 mg PO DAILY 09/19/19 [History] Gabapentin 300 mg PO DAILY 09/19/19 [History] Liraglutide [Victoza 2-[employer]ner] 0.6 mg PO DAILY 09/19/19 [History] Metformin HCl 500 mg [Glucophage 500 MG] 500 mg PO DAILY 09/19/19 [History ] Omeprazole 40 mg PO DAILY 09/19/19 [History] Potassium Chloride 10 Meq Tab* [Klor Con 10 MEQ] 10 meq PO DAILY 09/19/19 [ History] Ropinirole HCl 1 mg PO DAILY 09/19/19 [History] Scopolamine 1.5 mg Patch [Transderm Scop 1.5MG Patch] 1.5 mg TRANSTRAC Q12H PRN PRN MDD 3 09/19/19 [History] Sumatriptan Dillard/Menthol/Camphor [Migranow Kit] 50 mg PO DAILY 09/19/19 [History] Topiramate 25 mg PO DAILY 09/19/19 [History] Vitamin B Complex [B Complex] 1 tablet PO DAILY 09/19/19 [History] Hx Tetanus, Diphtheria Vaccination/Date Given: Yes Hx Influenza Vaccination/Date Given: No Hx Pneumococcal Vaccination/Date Given: No - Review of Systems Constitutional: No Symptoms Eyes: No Symptoms Ears, Nose, & Throat: No Symptoms Respiratory: No Symptoms Cardiac: Palpitations, No Chest Pain Abdominal/Gastrointestinal: No Symptoms Genitourinary Symptoms: No Symptoms Musculoskeletal: No Symptoms Skin: No Symptoms Neurological: No Symptoms Psychological: No Symptoms Endocrine: No Symptoms Hematologic/Lymphatic: No Symptoms Immunological/Allergic: No Symptoms All Other Systems: Reviewed and Negative - Past Medical History Pertinent Past Medical History: Yes Neurological History: No Pertinent History ENT History: No Pertinent History Cardiac History: No Pertinent History, Hypertension Respiratory History: No Pertinent History Endocrine Medical History: No Pertinent History, Diabetes Type II Musculoskeletal History: No Pertinent History GI Medical History: No Pertinent History History: No Pertinent History Psycho-Social History: Anxiety, Bipolar, Depression, Panic Disorder Female Reproductive Disorders: No Pertinent History Other Medical History: swelling in lower ext with chronic wounds - Past Surgical History Past Surgical History: Yes Neuro Surgical History: No Pertinent History Cardiac: No Pertinent History Respiratory: No Pertinent History Gastrointestinal: No Pertinent History Genitourinary: No Pertinent History Musculoskeletal: No Pertinent History Female Surgical History: No Pertinent History, Section Other Surgical History: T&A - Social History Smoking Status: Former smoker How long have you smoked: 2 yr Exposure to second hand smoke: Yes Drug Use: none Patient Lives Alone: No - Nursing Vital Signs Nursing Vital Signs: Initial Vital Signs Temperature 98.1 F 11/26/19 22:41 Pulse Rate 80 11/26/19 22:41 Respiratory Rate 15 11/26/19 22:41 Blood Pressure 131/86 11/26/19 22:41 O2 Sat by Pulse Oximetry 100 11/26/19 22:41 Pain Scale Pain Intensity 0 - Physical Exam General Appearance: no apparent distress, alert, anxiety Eye Exam: PERRL/EOMI, eyes nml inspection Ears, Nose, Throat Exam: normal ENT inspection, moist mucous membranes Neck Exam: normal inspection, non-tender, supple, full range of motion Respiratory Exam: normal breath sounds, lungs clear, airway intact, No chest tenderness, No respiratory distress Cardiovascular Exam: regular rate/rhythm, normal heart sounds, normal peripheral pulses Gastrointestinal/Abdomen Exam: soft, normal bowel sounds, No tenderness Pelvic Exam: not done Rectal Exam: not done Back Exam: normal inspection, normal range of motion, No CVA tenderness, No vertebral tenderness Extremity Exam: normal inspection, normal range of motion, pelvis stable Neurologic Exam: alert, oriented x 3, cooperative, nurse II-XII nml as tested, normal mood/affect, nml cerebellar function, nml station & gait Skin Exam: normal color, warm, dry Lymphatic Exam: No adenopathy SpO2 Interpretation: normal O2 Delivery: Room Air - Course Nursing assessment & vital signs reviewed: Yes EKG Interpreted by Me: RATE (86), Sinus Rhythm, NORMAL AXIS, NORMAL INTERVALS, NORMAL QRS, Other (No acute changes present. No change from comparison EKG dated October 15, 2019) Ordered Tests: Active Orders 24 hr Category Date Time Status Data Control Clerk Supervisor STAT Care 11/26/19 22:53 Active EKG-ER Only STAT Care 11/26/19 22:52 Active Pulse Oximetry (ED) STAT Care 11/26/19 22:52 Active CBC W DIFF Stat Lab 11/26/19 23:05 Completed CMP Stat Lab 11/26/19 23:05 Completed ETHYL ALCOHOL Stat Lab 11/26/19 23:05 Completed HCG,QUALITATIVE URINE Stat Lab 11/26/19 23:40 Completed MAGNESIUM Stat Lab 11/26/19 23:05 Completed TROPONIN Q3H Lab 11/26/19 23:05 Completed TROPONIN Q3H Lab 11/27/19 02:00 Ordered TROPONIN Q3H Lab 11/27/19 05:00 Ordered TROPONIN Q3H Lab 11/27/19 08:00 Ordered TROPONIN Q3H Lab 11/27/19 11:00 Ordered UA W/RFX UR CULTURE Stat Lab 11/26/19 23:40 Completed Urine Triage Profile Stat Lab 11/26/19 23:40 Completed Lab/Rad Data: Laboratory Result Diagrams 11/26/19 23:05 11/26/19 23:05 Laboratory Results 11/26/19 11/26/19 11/26/19 Range/Units 23:40 23:40 23:40 WBC (4.0-10.5) K/mm3 RBC (4.1-5.4) M/mm3 Hgb (12.0-16.0) gm/dl Hct (35-47) % MCV (78-100) fl MCH (26-32) pg MCHC (32-36) g/dl RDW (11.5-14.0) % Plt Count (150-450) K/mm3 MPV (7.5-11.0) fl Gran % (36.0-66.0) % Eos # (Auto) (0-0.5) Absolute Lymphs (auto) (1.0-4.6) Absolute Monos (auto) (0.0-1.3) Lymphocytes % (24.0-44.0) % Monocytes % (0.0-12.0) % Eosinophils % (0.00-5.0) % Basophils % (0.0-0.4) % Absolute Granulocytes (1.4-6.9) Basophils # (0-0.4) Sodium (137-145) mmol/L Potassium (3.5-5.1) mmol/L Chloride (98-107) mmol/L Carbon Dioxide (22-30) mmol/L Anion Gap (5-15) MEQ/L BUN (7-17) mg/dL Creatinine (0.52-1.04) mg/dL Estimated GFR ML/MIN Glucose (74-106) mg/dL Calcium (8.4-10.2) mg/dL Magnesium (1.6-2.3) mg/dL Total Bilirubin (0.2-1.3) mg/dL AST (14-36) U/L ALT (0-35) U/L Alkaline Phosphatase (38-126) U/L Troponin I (0.000-0.034) ng/mL Serum Total Protein (6.3-8.2) g/dL Albumin (3.5-5.0) g/dL Urine Color YELLOW (YELLOW) Urine Appearance CLEAR (CLEAR) Urine pH 6.0 (5-6) Ur Specific Guston 1.017 (1.005-1.025) Urine Protein NEGATIVE (Negative) Urine Ketones NEGATIVE (NEGATIVE) Urine Blood NEGATIVE (0-5) Wilder/ul Urine Nitrite NEGATIVE (NEGATIVE) Urine Bilirubin NEGATIVE (NEGATIVE) Urine Urobilinogen NEGATIVE (0-1) mg/dL Ur Leukocyte Esterase TRACE (NEGATIVE) Urine WBC (Auto) 0-2 (0-5) /HPF Urine RBC (Auto) NONE (0-2) /HPF U Epithel Cells (Auto) RARE (FEW) /HPF Urine Bacteria (Auto) RARE (NEGATIVE) /HPF Urine Mucus (Auto) SLIGHT (NEGATIVE) /HPF Urine Culture Reflexed NO (NO) Urine Glucose NEGATIVE (NEGATIVE) mg/dL Urine HCG, Qual NEGATIVE (Negative) Urine Opiates Level NEGATIVE (NEGATIVE) Ur Methadone NEGATIVE (NEGATIVE) Urine Barbiturates NEGATIVE (NEGATIVE) Ur Phencyclidine (PCP) NEGATIVE (NEGATIVE) Urine Amphetamine NEGATIVE (NEGATIVE) U Benzodiazepine Level NEGATIVE (NEGATIVE) Urine Cocaine NEGATIVE (NEGATIVE) Urine Marijuana (THC) NEGATIVE (NEGATIVE) Ethyl Alcohol (0-10) mg/dL 11/26/19 11/26/19 11/26/19 Range/Units 23:05 23:05 23:05 WBC 5.8 (4.0-10.5) K/mm3 RBC 4.49 (4.1-5.4) M/mm3 Hgb 11.7 L (12.0-16.0) gm/dl Hct 37.2 (35-47) % MCV 82.9 (78-100) fl MCH 26.1 (26-32) pg MCHC 31.5 L (32-36) g/dl RDW 14.9 H (11.5-14.0) % Plt Count 212 (150-450) K/mm3 MPV 10.5 (7.5-11.0) fl Gran % 67.4 H (36.0-66.0) % Eos # (Auto) 0.23 (0-0.5) Absolute Lymphs (auto) 1.18 (1.0-4.6) Absolute Monos (auto) 0.45 (0.0-1.3) Lymphocytes % 20.3 L (24.0-44.0) % Monocytes % 7.8 (0.0-12.0) % Eosinophils % 4.0 (0.00-5.0) % Basophils % 0.5 (0.0-0.4) % Absolute Granulocytes 3.91 (1.4-6.9) Basophils # 0.03 (0-0.4) Sodium 139 (137-145) mmol/L Potassium 4.4 (3.5-5.1) mmol/L Chloride 105 (98-107) mmol/L Carbon Dioxide 30 (22-30) mmol/L Anion Gap 9.1 (5-15) MEQ/L BUN 10 (7-17) mg/dL Creatinine 0.65 (0.52-1.04) mg/dL Estimated GFR > 60.0 ML/MIN Glucose 155 H (74-106) mg/dL Calcium 9.0 (8.4-10.2) mg/dL Magnesium 1.8 (1.6-2.3) mg/dL Total Bilirubin 0.50 (0.2-1.3) mg/dL AST 52 H (14-36) U/L ALT 71 H (0-35) U/L Alkaline Phosphatase 67 (38-126) U/L Troponin I < 0.012 (0.000-0.034) ng/mL Serum Total Protein 8.2 (6.3-8.2) g/dL Albumin 3.9 (3.5-5.0) g/dL Urine Color (YELLOW) Urine Appearance (CLEAR) Urine pH (5-6) Ur Specific Guston (1.005-1.025) Urine Protein (Negative) Urine Ketones (NEGATIVE) Urine Blood (0-5) Wilder/ul Urine Nitrite (NEGATIVE) Urine Bilirubin (NEGATIVE) Urine Urobilinogen (0-1) mg/dL Ur Leukocyte Esterase (NEGATIVE) Urine WBC (Auto) (0-5) /HPF Urine RBC (Auto) (0-2) /HPF U Epithel Cells (Auto) (FEW) /HPF Urine Bacteria (Auto) (NEGATIVE) /HPF Urine Mucus (Auto) (NEGATIVE) /HPF Urine Culture Reflexed (NO) Urine Glucose (NEGATIVE) mg/dL Urine HCG, Qual (Negative) Urine Opiates Level (NEGATIVE) Ur Methadone (NEGATIVE) Urine Barbiturates (NEGATIVE) Ur Phencyclidine (PCP) (NEGATIVE) Urine Amphetamine (NEGATIVE) U Benzodiazepine Level (NEGATIVE) Urine Cocaine (NEGATIVE) Urine Marijuana (THC) (NEGATIVE) Ethyl Alcohol < 10 (0-10) mg/dL - Progress Progress: improved Counseled pt/family regarding: lab results, diagnosis, need for follow-up, rad results - Departure Departure Disposition: Home Clinical Impression: Palpitations Condition: Stable Critical Care Time: No Referrals: [facility] [Primary Care Provider] - Additional Instructions: Avoid caffeinated products. Take your medications as prescribed. Follow-up with your primary care physician and loading supervisor for further management
[2019-11-26 23:04] VITALS: O2SAT 100
[2019-11-26 23:08] LABS: Absolute Neutrophil Ct (ANC) 3.91 (1.4-6.9); BASOPHIL % 0.5 % (0.0-0.4); Basophil (Absolute #) 0.03 (0-0.4); Eosinophil (Absolute #) 0.23 (0-0.5); Hematocrit 37.2 % (35-47); Hemoglobin 11.7 gm/dl (12.0-16.0); Lymphocyte (Absolute #) 1.18 (1.0-4.6); Lymphocytes % 20.3 % (24.0-44.0); Mean Cell Volume 82.9 fl (78-100); Mean Corpuscular Hemoglobin 26.1 pg (26-32); Mean Corpuscular Hgb Concent. 31.5 g/dl (32-36); Mean Platelet Volume 10.5 fl (7.5-11.0); Monocyte (Absolute #) 0.45 (0.0-1.3); Monocytes % 7.8 % (0.0-12.0); Neutrophil % 67.4 % (36.0-66.0); Platelet Count 212 K/mm3 (150-450); Red Blood Count 4.49 M/mm3 (4.1-5.4); Red Cell Distribution Width 14.9 % (11.5-14.0); White Blood Count 5.8 K/mm3 (4.0-10.5)
[2019-11-26 23:19] LABS: ALBUMIN 3.9 g/dL (3.5-5.0); ALKALINE PHOSPHATASE 67 U/L (38-126); ANION GAP 9.1 MEQ/L (5-15); BLOOD UREA NITROGEN 10 mg/dL (7-17); CHLORIDE 105 mmol/L (98-107); Carbon Dioxide 30 mmol/L (22-30); Creatinine 1 0.65 mg/dL (0.52-1.04); Glucose 155 mg/dL (74-106); MAGNESIUM 1.8 mg/dL (1.6-2.3); Potassium 4.4 mmol/L (3.5-5.1); SGOT/AST 52 U/L (14-36); SGPT/ALT 71 U/L (0-35); SODIUM 139 mmol/L (137-145); Total Protein 8.2 g/dL (6.3-8.2)
[2019-11-26 23:23] LABS: ETHYL ALCOHOL < 10 mg/dL (0-10)
[2019-11-26 23:46] LABS: Appearance CLEAR (CLEAR); Bacteria RARE /HPF (NEGATIVE); Bilirubin NEGATIVE (NEGATIVE); Blood NEGATIVE Ery/ul (0-5); Epithelial Cells RARE /HPF (FEW); Glucose NEGATIVE (NEGATIVE); Ketones NEGATIVE (NEGATIVE); Leukocyte Esterase TRACE (NEGATIVE); Mucus SLIGHT /HPF (NEGATIVE); Nitrite NEGATIVE (NEGATIVE); Protein,Urine Dip NEGATIVE (Negative); Specific Gravity 1.017 (1.005-1.025); Urobilinogen NEGATIVE mg/dL (0-1); WBC 0-2 /HPF (0-5)
[2019-11-26 23:58] LABS: Amphetamine,Urine NEGATIVE (NEGATIVE); Barbiturate,Urine NEGATIVE (NEGATIVE); Benzodiazepine,Urine NEGATIVE (NEGATIVE); Cocaine,Urine NEGATIVE (NEGATIVE); Methadone,Urine NEGATIVE (NEGATIVE); Opiate,Urine NEGATIVE (NEGATIVE); PCP,Urine NEGATIVE (NEGATIVE); THC,Urine NEGATIVE (NEGATIVE)
[2019-11-27 01:32] VITALS: BP 115/59; PULSE 85
== END 2019-11-27 01:23 | disposition home or self-care (01) ==
LOC: ED 22:06
DX: R00.2 Palpitations (principal); E11.9 Type 2 diabetes mellitus without complications; E66.01 Morbid (severe) obesity due to excess calories; Z79.899 Other long term (current) drug therapy; Z79.84 Long term (current) use of oral hypoglycemic drugs; I10 Essential (primary) hypertension
CPT/HCPCS: 36415; 80053; 80307; 81001; 83735; 84484; 84703; 85025; 93005; 93041; 94760; 99284; G0480

== ENCOUNTER 2019-12-29 16:34 | Emergency (ER) | payer OTHER ==
--- NOTE | 2019-12-29 18:02 | ERPHSYRPT ---
- History of Present Illness Time Seen by Provider: 12/29/19 16:55 Source: patient Exam Limitations: no limitations Patient Subjective Stated Complaint: pt reports cough and fever x 4 days, states she was advised by her doctor to be evaluated. Triage Nursing Assessment: pt is aox3, appears in no distress, afebrile, resps easy and non labored, lung sounds are clear throughout, radial pulses strong and equal, cap refill < 3 seconds, pt skin pink warm dry. Physician History: Is a 24-year-old white female who presents with a cough which is nonproductive. This started with a sore throat 2 days ago she has not had any fever higher than 99.9. She did complain of some difficulty breathing. She thinks she has bronchitis. She has had no reason to suspect Covid 19. She was told to come to the ER by her doctor. Timing/Duration: yesterday Cough Quality/Degree: dry cough Possible Cause: occasional episodes Modifying Factors: Improves With: nothing Associated Symptoms: fever Allergies/Adverse Reactions: latex Allergy (Mild, Verified 12/29/19 17:00) Rash Home Medications: Cetirizine HCl [All Day Allergy] 10 mg PO DAILY 09/19/19 [History] Dextrose/Vitamin D3 [Relion Glucose 15 Gram Liq] 60 ml PO DAILY 09/19/19 [ History] Ergocalciferol (Vitamin D2) [Vitamin D2] 50,000 units PO WEEKLY 09/19/19 [ History] Ertugliflozin Pidolate [Steglatro] 5 mg PO DAILY 09/19/19 [History] Fluticasone/Vilanterol [Breo Ellipta 100-25 Mcg INH] 1 spray INTRANASAL DAILY [History] Furosemide 20 mg [Lasix 20 mg] 20 mg PO DAILY 09/19/19 [History] Gabapentin 300 mg PO DAILY 09/19/19 [History] Liraglutide [Victoza 2-Warner] 0.6 mg PO DAILY 09/19/19 [History] Metformin HCl 500 mg [Glucophage 500 MG] 500 mg PO DAILY 09/19/19 [History ] Omeprazole 40 mg PO DAILY 09/19/19 [History] Potassium Chloride 10 Meq Tab* [Klor Con 10 MEQ] 10 meq PO DAILY 09/19/19 [ History] Ropinirole HCl 1 mg PO DAILY 09/19/19 [History] Scopolamine 1.5 mg Patch [Transderm Scop 1.5MG Patch] 1.5 mg TRANSTRAC Q12H PRN PRN MDD 3 09/19/19 [History] Sumatriptan Dillard/Menthol/Camphor [Migranow Kit] 50 mg PO DAILY 09/19/19 [History] Topiramate 25 mg PO DAILY 09/19/19 [History] Vitamin B Complex [B Complex] 1 tablet PO DAILY 09/19/19 [History] Hx Tetanus, Diphtheria Vaccination/Date Given: Yes Hx Influenza Vaccination/Date Given: No Hx Pneumococcal Vaccination/Date Given: No Immunizations Up to Date: Yes Travel Risk - International Travel Have you traveled outside of the country in past 3 weeks: No Have you or anyone close to you been diagnosed with or: No Do your reside in a community with a known COVID-19 case?: No - Coronavirus Screening Has patient experienced Coronavirus symptoms: No - Review of Systems Constitutional: Fever, No Chills Eyes: No Symptoms Ears, Nose, & Throat: Throat Pain Respiratory: Cough, No Dyspnea Cardiac: No Chest Pain, No Edema, No Syncope Abdominal/Gastrointestinal: No Abdominal Pain, No Nausea, No Vomiting, No Diarrhea Genitourinary Symptoms: No Dysuria Musculoskeletal: No Back Pain, No Neck Pain Skin: No Rash Neurological: No Dizziness, No Focal Weakness, No Sensory Changes Psychological: No Symptoms Endocrine: No Symptoms All Other Systems: Reviewed and Negative - Past Medical History Pertinent Past Medical History: Yes Neurological History: No Pertinent History ENT History: No Pertinent History Cardiac History: No Pertinent History, Hypertension Respiratory History: No Pertinent History Endocrine Medical History: No Pertinent History, Diabetes Type II Musculoskeletal History: No Pertinent History GI Medical History: No Pertinent History History: No Pertinent History Psycho-Social History: Anxiety, Bipolar, Depression, Panic Disorder Female Reproductive Disorders: No Pertinent History Other Medical History: swelling in lower ext with chronic wounds - Past Surgical History Past Surgical History: Yes Neuro Surgical History: No Pertinent History Cardiac: No Pertinent History Respiratory: No Pertinent History Gastrointestinal: No Pertinent History Genitourinary: No Pertinent History Musculoskeletal: No Pertinent History Female Surgical History: No Pertinent History, Section Other Surgical History: T&A - Social History Smoking Status: Former smoker How long have you smoked: 2 yr Exposure to second hand smoke: Yes Drug Use: none Patient Lives Alone: No - Female History Hx Last Menstrual Period: 12/07/19 Hx Now: No - Nursing Vital Signs Nursing Vital Signs: Initial Vital Signs Temperature 98.5 F 12/29/19 16:48 Pulse Rate 100 H 12/29/19 16:48 Respiratory Rate 22 12/29/19 16:48 Blood Pressure 121/72 12/29/19 16:48 O2 Sat by Pulse Oximetry 99 12/29/19 16:48 Pain Scale Pain Intensity 3 - Physical Exam General Appearance: no apparent distress, mild distress, alert, obese Eye Exam: PERRL/EOMI, eyes nml inspection Ears, Nose, Throat Exam: normal ENT inspection, TMs normal, pharynx normal, moist mucous membranes Neck Exam: normal inspection, non-tender, supple, full range of motion Respiratory Exam: rhonchi, No respiratory distress Cardiovascular Exam: regular rate/rhythm, normal heart sounds Gastrointestinal/Abdomen Exam: soft, No tenderness Back Exam: normal inspection, No CVA tenderness, No vertebral tenderness Extremity Exam: normal inspection, normal range of motion Neurologic Exam: alert, oriented x 3, cooperative, normal mood/affect, sensation nml, No motor deficits Skin Exam: normal color, warm, dry, No rash Lymphatic Exam: No adenopathy SpO2: 99 - Radiology Exams Chest X-ray Interpretation: No Pneumonia Ordered Tests: Active Orders 24 hr Category Date Time Status CHEST 2 VIEWS (PA AND LAT) Stat Exams 12/29/19 17:18 Taken - Progress Progress: unchanged Air Movement: good Blood Culture(s) Obtained: No Antibiotics given: No - Departure Departure Disposition: Home Clinical Impression: Bronchitis Condition: Stable Critical Care Time: No Referrals: [facility] [Primary Care Provider] - Instructions: Cough, Adult (DC) Prescriptions: Albuterol 2.5 mg/3 ml Neb [Proventil 2.5 mg/3 ml Neb] 2.5 mg IH Q4H 30 Days #100 neb Cephalexin Mh 500 mg [Keflex 500 mg] 500 mg PO TID #21 capsule
[2019-12-29 18:19] VITALS: BP 149/92; PULSE 79; O2SAT 98
--- NOTE | 2019-12-30 08:39 | XRAY ---
Indication: Cough. Bronchitis. Comparison: October 15, 2019. PA/lateral chest again demonstrates normal heart and lungs. Bony thorax intact. No new/acute findings.
== END 2019-12-29 18:27 | disposition home or self-care (01) ==
LOC: ED 16:34
DX: J40 Bronchitis, not specified as acute or chronic (principal); E11.9 Type 2 diabetes mellitus without complications; I10 Essential (primary) hypertension; F31.9 Bipolar disorder, unspecified; F41.9 Anxiety disorder, unspecified; Z79.899 Other long term (current) drug therapy
CPT/HCPCS: 71046; 99283

== ENCOUNTER 2020-04-08 12:33 | Emergency (ER) | payer OTHER ==
[2020-04-08] MEDS ORDERED: BABY ASPIRIN 81 MG CHEW PO ONE (13:11)
[2020-04-08 13:15] VITALS: BP 123/93
--- NOTE | 2020-04-08 13:22 | ERPHSYRPT ---
- History of Present Illness Time Seen by Provider: 04/08/20 12:38 Source: patient Exam Limitations: no limitations Patient Subjective Stated Complaint: Fever Triage Nursing Assessment: Patient brought back to ED via w/c. Patient prefers to sit in her w/c for comfort. Patient A+O X3. Patient's skin pink, warm and dry. Patient states she has been having fever for the past 5 days as high as 103.0. Patient states her back and BLE hurt constant aching pain with intermittent sharp pain 03/17. Lungs clear a/p teresa. Legs noted to be wrapped with a dressing. Physician History: Patient is here with fever, back pain, left leg pain. Patient states that she has had back pain for 5 days. She had a fever at home. She states that her back pain feels like her normal left sciatic nerve pain. She has no other falls or trauma. Patient states that she no fever here. 99.8. Patient does have a slight cough as well. Some slight midsternal chest pain. However she feels that it is more positional. Patient feels that she has a left leg cellulitis. States it is more red, tender today. She does have a history of chronic leg wounds and ulcers. Both her legs are wrapped. Patient has no red flag symptoms for back pain today: No Loss of control of the bowel or bladder. No weakness or numbness in a leg or arm. No foot drop, disturbed gait. No high fever here today, no IV drug use. No saddle anaesthesia (numbness of the anus, perineum or genitals). No trauma or h/o cancer Allergies/Adverse Reactions: latex Allergy (Mild, Verified 04/08/20 12:56) Rash Home Medications: Cetirizine HCl [All Day Allergy] 10 mg PO DAILY 09/19/19 [History] Dextrose/Vitamin D3 [Relion Glucose 15 Gram Liq] 60 ml PO DAILY 09/19/19 [History] Ergocalciferol (Vitamin D2) [Vitamin D2] 50,000 units PO WEEKLY 09/19/19 [History] Ertugliflozin Pidolate [Steglatro] 5 mg PO DAILY 09/19/19 [History] Fluticasone/Vilanterol [Breo Ellipta 100-25 Mcg INH] 1 spray INTRANASAL DAILY 09/19/19 [History] Furosemide 20 mg [Lasix 20 mg] 40 mg PO DAILY 09/19/19 [History] Gabapentin 300 mg PO DAILY 09/19/19 [History] Liraglutide [Victoza 2-[employer]ner] 0.6 mg PO DAILY 09/19/19 [History] Metformin HCl 500 mg [Glucophage 500 MG] 500 mg PO DAILY 09/19/19 [History] Omeprazole 40 mg PO DAILY 09/19/19 [History] Potassium Chloride 10 Meq Tab* [Klor Con 10 MEQ] 10 meq PO DAILY 09/19/19 [History] Ropinirole HCl 1 mg PO DAILY 09/19/19 [History] Scopolamine 1.5 mg Patch [Transderm Scop 1.5MG Patch] 1.5 mg TRANSTRAC Q12H PRN PRN MDD 3 09/19/19 [History] Sumatriptan Dillard/Menthol/Camphor [Migranow Kit] 50 mg PO DAILY 09/19/19 [History] Topiramate 25 mg PO DAILY 09/19/19 [History] Vitamin B Complex [B Complex] 1 tablet PO DAILY 09/19/19 [History] Amlodipine Besylate 5 mg [Norvasc 5 mg] 1 tab PO DAILY 04/08/20 [History] Hx Tetanus, Diphtheria Vaccination/Date Given: Yes Hx Influenza Vaccination/Date Given: No Hx Pneumococcal Vaccination/Date Given: No Immunizations Up to Date: Yes Travel Risk - International Travel Have you traveled outside of the country in past 3 weeks: No - Coronavirus Screening Are you exhibiting any of the following symptoms?: Yes Symptoms: Fever Close contact with a COVID-19 positive Pt in past 14-21 Days: No - Review of Systems Constitutional: Fever, No Chills Eyes: No Symptoms Ears, Nose, & Throat: No Symptoms Respiratory: Cough, No Dyspnea Cardiac: No Chest Pain, No Edema, No Syncope Abdominal/Gastrointestinal: No Abdominal Pain, No Nausea, No Vomiting, No Diarrhea Genitourinary Symptoms: No Dysuria Musculoskeletal: No Back Pain, No Neck Pain Skin: Cellulitis, No Rash Neurological: No Dizziness, No Focal Weakness, No Sensory Changes Psychological: No Symptoms Endocrine: No Symptoms All Other Systems: Reviewed and Negative - Past Medical History Pertinent Past Medical History: Yes Neurological History: No Pertinent History ENT History: No Pertinent History Cardiac History: No Pertinent History, Hypertension Respiratory History: No Pertinent History Endocrine Medical History: No Pertinent History, Diabetes Type II Musculoskeletal History: No Pertinent History GI Medical History: No Pertinent History History: No Pertinent History Psycho-Social History: Anxiety, Bipolar, Depression, Panic Disorder Female Reproductive Disorders: No Pertinent History Other Medical History: swelling in lower ext with chronic wounds - Past Surgical History Past Surgical History: Yes Neuro Surgical History: No Pertinent History Cardiac: No Pertinent History Respiratory: No Pertinent History Gastrointestinal: No Pertinent History Genitourinary: No Pertinent History Musculoskeletal: No Pertinent History Female Surgical History: No Pertinent History, Section Other Surgical History: T&A - Social History Smoking Status: Former smoker How long have you smoked: 2 yr Exposure to second hand smoke: Yes Drug Use: none Patient Lives Alone: No - Female History Hx Last Menstrual Period: one week ago Hx Now: No - Nursing Vital Signs Nursing Vital Signs: Initial Vital Signs Blood Pressure 123/93 04/08/20 13:03 Pain Scale Pain Intensity 6 - Physical Exam General Appearance: no apparent distress, alert Eye Exam: PERRL/EOMI, eyes nml inspection Ears, Nose, Throat Exam: normal ENT inspection, TMs normal, pharynx normal, moist mucous membranes Neck Exam: normal inspection, non-tender, supple, full range of motion Respiratory Exam: normal breath sounds, lungs clear, No respiratory distress Cardiovascular Exam: regular rate/rhythm, normal heart sounds, normal peripheral pulses Gastrointestinal/Abdomen Exam: soft, normal bowel sounds, No tenderness, No mass Back Exam: normal inspection, normal range of motion, No CVA tenderness, No vertebral tenderness Extremity Exam: normal inspection, normal range of motion, pelvis stable Neurologic Exam: alert, oriented x 3, cooperative, normal mood/affect, nml cerebellar function, nml station & gait, sensation nml, No motor deficits Skin Exam: normal color, warm, dry, No rash Lymphatic Exam: No adenopathy SpO2 Interpretation: normal Comments: 04/08/20 13:23 Left leg cellulitis, redness. No obvious deformity, sensation intact, 2+ capillary refill, 2 point tactile discrimination intact. 5 out of 5 strength. Full range of motion without pain. Compartments are soft, nontender. Overlying skin shows no tenting, bruising, ecchymosis. Patient has no midline back tenderness. No elbow spine, T-spine tenderness to palpation. No step-offs or deformities. Motor: There is no pronator drift of out-stretched arms. Muscle bulk and tone are normal. Strength is full bilaterally. Reflexes: Reflexes are 2+ and symmetric at the biceps, triceps, knees, and ankles. Plantar responses are flexor. Sensory: Light touch sense are intact in bilateral upper and lower extremities. There is no sign of neglect. Coordination: Rapid alternating movements are intact. There is no dysmetria on [id number] and [id number]. There are no abnormal or extraneous movements. Romberg is absent. Gait/Stance: Posture is normal. Gait is steady with normal steps, base, arm swing, and turning. Heel and toe walking are normal. Tandem gait is normal. No saddle anesthesia on exam. - Course Nursing assessment & vital signs reviewed: Yes EKG Interpreted by Me: RATE, Sinus Rhythm Ordered Tests: Active Orders 24 hr Category Date Time Status EKG-ER Only STAT Care 04/08/20 13:11 Completed IV Insertion STAT Care 04/08/20 13:11 Completed CHEST 2 VIEWS (PA AND LAT) Stat Exams 04/08/20 13:12 Completed BLOOD CULTURE Stat Lab 04/08/20 13:48 Received CBC W DIFF Stat Lab 04/08/20 13:48 Completed CMP Stat Lab 04/08/20 13:48 Completed Lactic Acid Stat Lab 04/08/20 13:30 Completed Medication Summary Discontinued Medications Generic Name Dose Route Start Last Admin Trade Name Mitchq PRN Reason Stop Dose Admin Aspirin 324 mg 04/08/20 13:11 04/08/20 13:30 Baby Aspirin 81 Mg Chew PO 04/08/20 13:12 324 mg STAT ONE Administration Aspirin Confirm 04/08/20 13:27 Baby Aspirin 81 Mg Chew Administered 04/08/20 13:28 Dose 324 mg .ROUTE .STK-MED ONE Lab/Rad Data: Laboratory Result Diagrams 04/08/20 13:48 04/08/20 13:48 Laboratory Results 04/08/20 04/08/20 04/08/20 Range/Units 13:48 13:48 13:30 WBC 4.9 (4.0-10.5) K/mm3 RBC 4.50 (4.1-5.4) M/mm3 Hgb 11.4 L (12.0-16.0) gm/dl Hct 36.7 (35-47) % MCV 81.6 (78-100) fl MCH 25.3 L (26-32) pg MCHC 31.1 L (32-36) g/dl RDW 15.3 H (11.5-14.0) % Plt Count 190 (150-450) K/mm3 MPV 11.2 H (7.5-11.0) fl Gran % 68.9 H (36.0-66.0) % Eos # (Auto) 0.07 (0-0.5) Absolute Lymphs (auto) 0.97 L (1.0-4.6) Absolute Monos (auto) 0.46 (0.0-1.3) Lymphocytes % 19.9 L (24.0-44.0) % Monocytes % 9.4 (0.0-12.0) % Eosinophils % 1.4 (0.00-5.0) % Basophils % 0.4 (0.0-0.4) % Absolute Granulocytes 3.35 (1.4-6.9) Basophils # 0.02 (0-0.4) Sodium 139 (137-145) mmol/L Potassium 3.7 (3.5-5.1) mmol/L Chloride 104 (98-107) mmol/L Carbon Dioxide 27 (22-30) mmol/L Anion Gap 12.5 (5-15) MEQ/L BUN 7 (7-17) mg/dL Creatinine 0.55 (0.52-1.04) mg/dL Estimated GFR > 60.0 ML/MIN Glucose 117 H (74-106) mg/dL Lactic Acid 1.0 (0.4-2.0) Calcium 9.2 (8.4-10.2) mg/dL Total Bilirubin 1.20 (0.2-1.3) mg/dL AST 29 (14-36) U/L ALT 45 H (0-35) U/L Alkaline Phosphatase 61 (38-126) U/L Serum Total Protein 8.8 H (6.3-8.2) g/dL Albumin 4.0 (3.5-5.0) g/dL - Progress Progress: improved Progress Note: 04/08/20 13:24 Differential diagnosis includes pneumonia, other infection, cellulitis, chronic back pain. The back pain does appear to be her chronic acute on chronic back pain. She states that she feels like it is her sciatic nerve pain. Normal physical exam without other red flag symptoms for back pain today. Left lower leg does appear to have cellulitis. We will check basic labs, CBC, chest x-ray looking for any other source of infection. 04/08/20 16:25 Lab results mostly unremarkable. No signs of a serious bacterial illness. We will treat her left lower leg cellulitis with doxycycline at this point time. Return here for any new or changing symptoms. Counseled pt/family regarding: lab results, diagnosis, need for follow-up, rad results - Departure Departure Disposition: Home, Extended Care Facility Clinical Impression: Fever, Left leg cellulitis Condition: Stable Critical Care Time: No Referrals: [facility] [Primary Care Provider] - Instructions: Fever, Adult (DC) Prescriptions: Doxycycline Hyclate 100 mg [Vibramycin 100 MG] 100 mg PO BID #14 tab
[2020-04-08] MEDS ORDERED: BABY ASPIRIN 81 MG CHEW ONE (13:27)
[2020-04-08 13:56] LABS: Absolute Neutrophil Ct (ANC) 3.35 (1.4-6.9); BASOPHIL % 0.4 % (0.0-0.4); Basophil (Absolute #) 0.02 (0-0.4); Eosinophil % 1.4 % (0.00-5.0); Eosinophil (Absolute #) 0.07 (0-0.5); Hematocrit 36.7 % (35-47); Hemoglobin 11.4 gm/dl (12.0-16.0); Lymphocyte (Absolute #) 0.97 (1.0-4.6); Lymphocytes % 19.9 % (24.0-44.0); Mean Cell Volume 81.6 fl (78-100); Mean Corpuscular Hemoglobin 25.3 pg (26-32); Mean Corpuscular Hgb Concent. 31.1 g/dl (32-36); Mean Platelet Volume 11.2 fl (7.5-11.0); Monocyte (Absolute #) 0.46 (0.0-1.3); Monocytes % 9.4 % (0.0-12.0); Neutrophil % 68.9 % (36.0-66.0); Platelet Count 190 K/mm3 (150-450); Red Cell Distribution Width 15.3 % (11.5-14.0); White Blood Count 4.9 K/mm3 (4.0-10.5)
--- NOTE | 2020-04-08 14:00 | XRAY ---
Indication: Fever. Pneumonia. Comparison: December 29, 2019. PA/lateral chest again demonstrates normal heart and lungs with a few incidental tiny calcified granulomas. Bony thorax intact. No new/acute findings.
[2020-04-08 14:10] LABS: ALKALINE PHOSPHATASE 61 U/L (38-126); ANION GAP 12.5 MEQ/L (5-15); BLOOD UREA NITROGEN 7 mg/dL (7-17); CHLORIDE 104 mmol/L (98-107); Calcium 9.2 mg/dL (8.4-10.2); Carbon Dioxide 27 mmol/L (22-30); Creatinine 1 0.55 mg/dL (0.52-1.04); Glucose 117 mg/dL (74-106); Potassium 3.7 mmol/L (3.5-5.1); SGOT/AST 29 U/L (14-36); SGPT/ALT 45 U/L (0-35); SODIUM 139 mmol/L (137-145); Total Protein 8.8 g/dL (6.3-8.2)
== END 2020-04-08 14:50 | disposition home or self-care (01) ==
LOC: ED 12:33
DX: R50.9 Fever, unspecified (principal); L03.116 Cellulitis of left lower limb; Z79.899 Other long term (current) drug therapy; I10 Essential (primary) hypertension; E11.9 Type 2 diabetes mellitus without complications; F41.9 Anxiety disorder, unspecified; F32.9 Major depressive disorder, single episode, unspecified
CPT/HCPCS: 36000; 36415; 71046; 80053; 83605; 85025; 87040; 93005; 99284; A9270-GY

== ENCOUNTER 2020-08-25 14:54 | Emergency (ER) | payer OTHER ==
--- NOTE | 2020-08-25 15:09 | ERPHSYRPT ---
- History of Present Illness Time Seen by Provider: 08/25/20 15:09 Source: patient Exam Limitations: no limitations Physician History: This is a 24-year-old morbidly obese white female who 2 days ago was walking in her home trying to avoid children's toys on the floor when she stepped oddly and felt pain in her right foot. She called her primary care providers office yesterday and recommended that she come to the emergency department to be evaluated. However, she waited until today to see if the pain would improve. It has not worsened but has not improved as well. She is here to have her right foot evaluated. Method of Injury: twisted Occurred: days ago (2) Quality: aching Severity of Pain-Max: mild Severity of Pain-Current: mild Lower Extremities Pain: foot: right Modifying Factors: Improves With: movement (Mild pain) Associated Symptoms: other (Patient is able to ambulate but has mild pain in her right foot) Allergies/Adverse Reactions: latex Allergy (Mild, Verified 04/08/20 12:56) Rash Home Medications: Cetirizine HCl [All Day Allergy] 10 mg PO DAILY 09/19/19 [History] Dextrose/Vitamin D3 [Relion Glucose 15 Gram Liq] 60 ml PO DAILY 09/19/19 [History] Ergocalciferol (Vitamin D2) [Vitamin D2] 50,000 units PO WEEKLY 09/19/19 [History] Ertugliflozin Pidolate [Steglatro] 5 mg PO DAILY 09/19/19 [History] Fluticasone/Vilanterol [Breo Ellipta 100-25 Mcg INH] 1 spray INTRANASAL DAILY 09/19/19 [History] Furosemide 20 mg [Lasix 20 mg] 40 mg PO DAILY 09/19/19 [History] Gabapentin 300 mg PO DAILY 09/19/19 [History] Liraglutide [Victoza 2-[employer]] 0.6 mg PO DAILY 09/19/19 [History] Metformin HCl 500 mg [Glucophage 500 MG] 500 mg PO DAILY 09/19/19 [History] Omeprazole 40 mg PO DAILY 09/19/19 [History] Potassium Chloride 10 Meq Tab* [Klor Con 10 MEQ] 10 meq PO DAILY 09/19/19 [History] Ropinirole HCl 1 mg PO DAILY 09/19/19 [History] Scopolamine 1.5 mg Patch [Transderm Scop 1.5MG Patch] 1.5 mg TRANSTRAC Q12H PRN PRN MDD 3 09/19/19 [History] Sumatriptan Dillard/Menthol/Camphor [Migranow Kit] 50 mg PO DAILY 09/19/19 [History] Topiramate 25 mg PO DAILY 09/19/19 [History] Vitamin B Complex [B Complex] 1 tablet PO DAILY 09/19/19 [History] Amlodipine Besylate 5 mg [Norvasc 5 mg] 1 tab PO DAILY 04/08/20 [History] Lorazepam [Ativan] 2 mg PO DAILY 08/25/20 [History] Hx Tetanus, Diphtheria Vaccination/Date Given: Yes Hx Influenza Vaccination/Date Given: No Hx Pneumococcal Vaccination/Date Given: No Travel Risk - International Travel Have you traveled outside of the country in past 3 weeks: No - Coronavirus Screening Are you exhibiting any of the following symptoms?: No Close contact with a COVID-19 positive Pt in past 14-21 Days: No - Review of Systems Constitutional: No Symptoms Eyes: No Symptoms Ears, Nose, & Throat: No Symptoms Respiratory: No Symptoms Cardiac: No Symptoms Abdominal/Gastrointestinal: No Symptoms Genitourinary Symptoms: No Symptoms Musculoskeletal: Injury (Right foot) Skin: No Symptoms Neurological: No Symptoms Psychological: No Symptoms Endocrine: No Symptoms Hematologic/Lymphatic: No Symptoms Immunological/Allergic: No Symptoms All Other Systems: Reviewed and Negative - Past Medical History Pertinent Past Medical History: Yes Neurological History: No Pertinent History ENT History: No Pertinent History Cardiac History: No Pertinent History, Hypertension Respiratory History: No Pertinent History Endocrine Medical History: No Pertinent History, Diabetes Type II Musculoskeletal History: No Pertinent History GI Medical History: No Pertinent History History: No Pertinent History Psycho-Social History: Anxiety, Bipolar, Depression, Panic Disorder Female Reproductive Disorders: No Pertinent History Other Medical History: swelling in lower ext with chronic wounds - Past Surgical History Past Surgical History: Yes Neuro Surgical History: No Pertinent History Cardiac: No Pertinent History Respiratory: No Pertinent History Gastrointestinal: No Pertinent History Genitourinary: No Pertinent History Musculoskeletal: No Pertinent History Female Surgical History: No Pertinent History, Section Other Surgical History: T&A - Social History Smoking Status: Former smoker How long have you smoked: 2 yr Exposure to second hand smoke: Yes Drug Use: none Patient Lives Alone: No - Female History Hx Now: No - Nursing Vital Signs Nursing Vital Signs: Initial Vital Signs Temperature 98.0 F 08/25/20 15:05 Pulse Rate 108 H 08/25/20 15:05 Respiratory Rate 20 08/25/20 15:05 Blood Pressure 157/94 08/25/20 15:05 O2 Sat by Pulse Oximetry 98 08/25/20 15:05 Pain Scale Pain Intensity 5 - Physical Exam General Appearance: no apparent distress, alert, anxiety, obese Eyes, Ears, Nose, Throat Exam: normal ENT inspection, moist mucous membranes Neck Exam: normal inspection, non-tender, supple, full range of motion Cardiovascular/Respiratory Exam: chest non-tender, no respiratory distress Gastrointestinal/Abdominal Exam: non-tender Back Exam: normal inspection, normal range of motion, No CVA tenderness, No vertebral tenderness Hips Exam: bilateral: non-tender, normal inspection, normal range of motion, no evidence of injury Legs Exam: bilateral leg: non-tender, normal inspection, normal range of motion, no evidence of injury Knees Exam: bilateral knee: non-tender, normal inspection, normal range of motion, no evidence of injury Ankle Exam: bilateral ankle: non-tender, normal inspection, normal range of motion, no evidence of injury Foot Exam: right foot: non-tender, left foot: soft tissue tenderness, bilateral foot: normal inspection, normal range of motion, no evidence of injury Neuro/Tendon Exam: normal sensation, normal motor functions, normal tendon functions Mental Status Exam: alert, oriented x 3, cooperative Skin Exam: normal color, warm, dry SpO2 Interpretation: normal O2 Delivery: Room Air - Course Nursing assessment & vital signs reviewed: Yes Ordered Tests: Active Orders 24 hr Category Date Time Status FOOT (MINIMUM 3 VIEWS) Stat Exams 08/25/20 15:08 Completed - Progress Progress: unchanged Progress Note: 08/25/20 15:39 X-ray of the right foot reveals no acute fracture or dislocation. Counseled pt/family regarding: diagnosis, need for follow-up, rad results - Departure Departure Disposition: Home Clinical Impression: Right foot sprain Condition: Stable Critical Care Time: No Referrals: [facility] [Primary Care Provider] - Additional Instructions: Ice pack to tender area of right foot 3 times a day for the next 48 hours. May use Tylenol and ibuprofen for pain control. Follow-up with [facility] if symptoms persist or worsen.
[2020-08-25 15:10] VITALS: BP 157/94; PULSE 108; O2SAT 98
--- NOTE | 2020-08-25 15:35 | XRAY ---
Indication: Pain following stepping injury. Comparison: None 3 nonweightbearing views right foot demonstrates tiny posterior heel spur. No other bony, articular, or soft tissue abnormalities.
== END 2020-08-25 16:14 | disposition home or self-care (01) ==
LOC: ED 14:54
DX: S93.601A Unspecified sprain of right foot, initial encounter (principal); M79.671 Pain in right foot; W22.8XXA Striking against or struck by other objects, initial encounter; Z79.899 Other long term (current) drug therapy; Z79.84 Long term (current) use of oral hypoglycemic drugs; I10 Essential (primary) hypertension; E11.9 Type 2 diabetes mellitus without complications
CPT/HCPCS: 73630; 99283

== ENCOUNTER 2020-09-19 03:09 | Emergency (ER) | payer MEDICAID, OTHER ==
[2020-09-19] MEDS ORDERED: XYLOCAINE 1% HCL 20 ML MDV IJ ONE (03:10)
[2020-09-19 03:39] VITALS: PULSE 100; O2SAT 98
[2020-09-19] MEDS ORDERED: Rocephin 1000 MG INJ IM ONE (03:40)
[2020-09-19] MEDS ORDERED: Rocephin 1000 MG INJ ONE (03:43)
--- NOTE | 2020-09-19 03:46 | ERPHSYRPT ---
- History of Present Illness Time Seen by Provider: 09/19/20 03:41 Source: patient Exam Limitations: no limitations Patient Subjective Stated Complaint: "I've had upper respiratory symptoms for about a week now. Tonight I had a funny feeling in my chest. My blood pressure machine kept reading high." Triage Nursing Assessment: Patient reported having nasal congestion and dry non- productive cough with pressure in her ears for roughly one week. patient reported having a "discomfort" in her chest which resulted in her checking her blood pressure at home roughly 5 times in 30 minutes with high readings as a result. Patient reported having a history of arrythmia. Discomfort was described a slight pressure and non-radiating without alleviating/aggravating factors. Denied any associated symptoms save a congestin and cough. Pupils 3mm brisk dir ect and consensual reaction to light. TMs reddened and slightly bulging. Oral mucosa pink/moist. Neck supple non-tender without JVD. Symmetrical chest expansion. heart tones tachycardic with regular rate and rhythm without extra sounds. Abdomen morbidly obese non-tender. Peripheral pulses +2 bilateral. Physician History: 24 years old female came to Er c/o "I've had upper respiratory symptoms for about a week now. Tonight I had a funny feeling in my chest. My blood pressure machine kept reading high." Patient reported having nasal congestion and dry non-productive cough with pressure in her ears for roughly one week. patient reported having a "discomfort" in her chest which resulted in her checking her blood pressure at home roughly 5 times in 30 minutes with high readings as a result. Patient reported having a history of arrhythmia. Discomfort was described a slight pressure and non-radiating without alleviating/aggravating factors. Denied any associated symptoms save a congestion and cough. In ER Blood pressure reported in upper normal range. Timing/Duration: today Modifying Factors: Worsens With: medication Associated Symptoms: heartburn, cough, chills, fever, headaches, No shortness of breath, No chest pain Allergies/Adverse Reactions: latex Allergy (Mild, Verified 09/19/20 03:17) Rash promethazine [From Phenergan] Adverse Reaction (Verified 09/19/20 03:18) Not taken before. Reported multiple family members having severe reactions to phernergan. Home Medications: Furosemide 20 mg [Lasix 20 mg] 40 mg PO DAILY 09/19/19 [History] Potassium Chloride 10 Meq Tab* [Klor Con 10 MEQ] 10 meq PO DAILY 09/19/19 [History] Amlodipine Besylate 5 mg [Norvasc 5 mg] 1 tab PO DAILY 04/08/20 [History] Metoprolol Succinate [Toprol Xl] 1 tab PO DAILY 09/19/20 [History] Hx Tetanus, Diphtheria Vaccination/Date Given: Yes Hx Influenza Vaccination/Date Given: No Hx Pneumococcal Vaccination/Date Given: No Travel Risk - International Travel Have you traveled outside of the country in past 3 weeks: No - Coronavirus Screening Are you exhibiting any of the following symptoms?: Yes Symptoms: Fever, Cough: New Onset Close contact with a COVID-19 positive Pt in past 14-21 Days: No - Review of Systems Constitutional: No Fever, No Chills Eyes: No Symptoms Ears, Nose, & Throat: Sinus Drainage Respiratory: Cough, No Dyspnea Cardiac: No Chest Pain, No Edema, No Syncope Abdominal/Gastrointestinal: No Abdominal Pain, No Nausea, No Vomiting, No Diarrhea Genitourinary Symptoms: No Dysuria Musculoskeletal: No Back Pain, No Neck Pain Skin: No Rash Neurological: No Dizziness, No Focal Weakness, No Sensory Changes Psychological: No Symptoms Endocrine: No Symptoms All Other Systems: Reviewed and Negative - Past Medical History Pertinent Past Medical History: Yes Neurological History: No Pertinent History ENT History: No Pertinent History Cardiac History: No Pertinent History, Hypertension Respiratory History: No Pertinent History Endocrine Medical History: No Pertinent History, Diabetes Type II Musculoskeletal History: No Pertinent History GI Medical History: GERD History: No Pertinent History Psycho-Social History: Anxiety, Bipolar, Depression, Panic Disorder Female Reproductive Disorders: No Pertinent History Other Medical History: swelling in lower ext with chronic wounds, Fibromyalgia - Past Surgical History Past Surgical History: Yes Neuro Surgical History: No Pertinent History Cardiac: No Pertinent History Respiratory: No Pertinent History Gastrointestinal: No Pertinent History Genitourinary: No Pertinent History Musculoskeletal: No Pertinent History Female Surgical History: No Pertinent History, Section Other Surgical History: T&A - Social History Smoking Status: Former smoker How long have you smoked: 2 yr Exposure to second hand smoke: Yes Drug Use: none Patient Lives Alone: No - Female History Hx Now: No - Nursing Vital Signs Nursing Vital Signs: Initial Vital Signs Temperature 98.4 F 09/19/20 03:10 Pulse Rate 100 H 09/19/20 03:10 Respiratory Rate 20 09/19/20 03:10 Blood Pressure 132/78 09/19/20 03:10 O2 Sat by Pulse Oximetry 98 09/19/20 03:10 Pain Scale Pain Intensity 3 - Physical Exam General Appearance: no apparent distress, alert Eye Exam: PERRL/EOMI, eyes nml inspection Ears, Nose, Throat Exam: normal ENT inspection, TMs normal, moist mucous membranes, pharyngeal erythema Neck Exam: normal inspection, non-tender, supple, full range of motion Respiratory Exam: normal breath sounds, lungs clear, No respiratory distress Cardiovascular Exam: regular rate/rhythm, normal heart sounds, normal peripheral pulses Gastrointestinal/Abdomen Exam: soft, normal bowel sounds, No tenderness, No mass Back Exam: normal inspection, normal range of motion, No CVA tenderness, No vertebral tenderness Extremity Exam: normal inspection, normal range of motion, pelvis stable Neurologic Exam: alert, oriented x 3, cooperative, normal mood/affect, nml cerebellar function, nml station & gait, sensation nml, No motor deficits Skin Exam: normal color, warm, dry, No rash Lymphatic Exam: No adenopathy SpO2: 98 - Course Nursing assessment & vital signs reviewed: Yes - Progress Progress: improved (blood pressure remain WNL) - Departure Departure Disposition: Home Clinical Impression: Elevated blood pressure reading, COVID-19 Pharyngitis Qualifiers: Pharyngitis/tonsillitis etiology: unspecified etiology Qualified Code(s): J02.9 - Acute pharyngitis, unspecified Condition: Stable Critical Care Time: No Referrals: ALF VELEZ [Primary Care Provider] - Instructions: High Blood Pressure in Adults, Prehypertension, Lowering Your Risk of High Blood Pressure Additional Instructions: ARUN GEE was seen on 09/19/20 n the Emergency Room. At that time you were treated for an emergent condition, during your visit Laboratory, Radiology and/or other procedures may have been ordered. It is very important that you follow-up with your Primary Care Physician ALF VELEZ within the next 24-48 hours to review your Emergency Room visit and the final results of testing that was ordered. Some test results such as Urine Cultures, Blood Cultures, and other cultures if ordered will not be finalized for 24-48 hours. If you do not have a Primary Care Provider please call the medical records department at [phone] ext [phone] to obtain a copy of your results or you may sign into our patient portal to obtain these results by visiting us @ [email or web address] and completing the following steps: 1. Click on the Patient Portal link 2. Click the Patient Self Enrollment Link to complete the enrollment form and entering your 3. Once the enrollment form is completed you will receive an email with a temporary ID and password at the email address you provided. 4. Next choose a user name and password. Your user name must be at least 4 characters long and your password must be at least 4 characters long. 5. Choose a security question from the list and provide your answer to the question. If you already have signed into the Health Portal you may access your Health Care Information 30/04 by the following steps: 1. Login to our website @ [email or web address] 2. Enter your original user name and password. FAQS The [facility] Health Portal is an online tool that contains your Lab Results, Radiology Reports, Visit History, Discharge Instructions and Health Summary Lab and Radiology Results will not be available for 72 hours on the portal. The Portal is a secure site, passwords are encryted and URLs are re-written so they cannot be copied and pasted. You and authorized family members are the only ones who can access your Portal. Also there is a timeout feature that protects your information if you leave the Portal page open. If you have technical difficulty please use the Contact Us link on the page this will allow you to submit any questions you have regarding the Portal or you may contact the Medical Record Department at [phone] ext [phone]. Please take CORCIDINE HBP 1 tab orally every 8 hrs for cough, sinus congestion for 2-3 days till symptoms relief. Prescriptions: Azithromycin [Zithromax] 250 mg PO UD 5 Days #6 tablet
[2020-09-19 04:25] VITALS: BP 123/78
== END 2020-09-19 04:20 | disposition home or self-care (01) ==
LOC: ED 03:09
DX: R03.0 Elevated blood-pressure reading, without diagnosis of hypertension (principal); U07.1 COVID-19
CPT/HCPCS: 96372; 99284; U0003; J0696

== ENCOUNTER 2020-10-15 14:24 | Emergency (ER) | payer MEDICAID ==
[2020-10-15 15:53] LABS: Absolute Neutrophil Ct (ANC) 4.07 (1.4-6.9); BASOPHIL % 0.5 % (0.0-0.4); Basophil (Absolute #) 0.03 (0-0.4); Eosinophil % 4.2 % (0.00-5.0); Eosinophil (Absolute #) 0.24 (0-0.5); Hematocrit 37.8 % (35-47); Hemoglobin 11.5 gm/dl (12.0-16.0); Lymphocytes % 17.3 % (24.0-44.0); Mean Cell Volume 79.1 fl (78-100); Mean Corpuscular Hemoglobin 24.1 pg (26-32); Mean Corpuscular Hgb Concent. 30.4 g/dl (32-36); Mean Platelet Volume 10.3 fl (7.5-11.0); Monocyte (Absolute #) 0.44 (0.0-1.3); Monocytes % 7.6 % (0.0-12.0); Neutrophil % 70.4 % (36.0-66.0); Platelet Count 266 K/mm3 (150-450); Red Blood Count 4.78 M/mm3 (4.1-5.4); Red Cell Distribution Width 15.9 % (11.5-14.0); White Blood Count 5.8 K/mm3 (4.0-10.5)
[2020-10-15 16:02] LABS: ALBUMIN 4.2 g/dL (3.5-5.0); ALKALINE PHOSPHATASE 71 U/L (38-126); ANION GAP 11.5 MEQ/L (5-15); BLOOD UREA NITROGEN 11 mg/dL (7-17); CHLORIDE 102 mmol/L (98-107); Calcium 9.4 mg/dL (8.4-10.2); Carbon Dioxide 27 mmol/L (22-30); Creatinine 1 0.48 mg/dL (0.52-1.04); EST GLOMERULAR FILTRATION RATE > 60.0 ML/MIN; Glucose 117 mg/dL (74-106); Potassium 3.5 mmol/L (3.5-5.1); SGOT/AST 55 U/L (14-36); SGPT/ALT 76 U/L (0-35); SODIUM 137 mmol/L (137-145); Total Protein 9.5 g/dL (6.3-8.2)
--- NOTE | 2020-10-15 16:29 | XRAY ---
Indication: Short of breath. Chest tightness. Comparison: April 08, 2020. Portable chest demonstrates new left base hazy infiltrate/atelectasis. Remaining heart, right lung, and bony thorax normal.
[2020-10-15 16:31] LABS: INFLUENZA A NEGATIVE (NEGATIVE); INFLUENZA B NEGATIVE (NEGATIVE)
[2020-10-15 19:22] VITALS: BP 130/37; PULSE 88; O2SAT 100
--- NOTE | 2020-10-15 19:35 | ERPHSYRPT ---
- History of Present Illness Patient Subjective Stated Complaint: Pt states she woke up around 10:00 today and felt like she couldn't get a full breath. Pt reports she struggles with anxiety but this isnt one of her typical symptoms. Denies fever/cough/n/v/d. Triage Nursing Assessment: Pt skin pink, warm, dry. Lung sounds clear equal bilat. Respirations non-labored. Pt talks in complete sentences. Timing/Duration: today Activities at Onset: none Severity of Dyspnea-Max: moderate Severity of Dyspnea-Current: moderate Possible Cause: occasional episodes Modifying Factors: Improves With: nothing Associated Symptoms: denies symptoms Hx Tetanus, Diphtheria Vaccination/Date Given: Yes Hx Influenza Vaccination/Date Given: No Hx Pneumococcal Vaccination/Date Given: No <LAURE AUGUSTE - Last Filed: 10/15/20 19:33> <MICHAEL SNYDER - Last Filed: 10/15/20 20:54> - History of Present Illness Time Seen by Provider: 10/15/20 15:00 Physician History: Patient is a 24-year-old obese white female who presents with a complaint of anxiety causing her to be short of breath. She feels like she has a lump in her throat she does state that this seems different than her typical anxiety. She also admits that she has been vaping heavily recently and is concerned. (ELIAZAR LARIOS,LAURE) Allergies/Adverse Reactions: latex Allergy (Mild, Verified 10/15/20 15:03) Rash promethazine [From Phenergan] Adverse Reaction (Verified 10/15/20 15:03) Not taken before. Reported multiple family members having severe reactions to phernergan. Home Medications: Furosemide 20 mg [Lasix 20 mg] 40 mg PO DAILY 09/19/19 [History] Potassium Chloride 10 Meq Tab* [Klor Con 10 MEQ] 10 meq PO DAILY 09/19/19 [History] Amlodipine Besylate 5 mg [Norvasc 5 mg] 1 tab PO DAILY 04/08/20 [History] Metoprolol Succinate [Toprol Xl] 1 tab PO DAILY 09/19/20 [History] Travel Risk - International Travel Have you traveled outside of the country in past 3 weeks: No - Coronavirus Screening Symptoms: Shortness of Breath Close contact with a COVID-19 positive Pt in past 14-21 Days: No <RASHEEDARMANILAURE - Last Filed: 10/15/20 19:33> - Review of Systems Constitutional: No Fever, No Chills Eyes: No Symptoms Ears, Nose, & Throat: No Symptoms Respiratory: Cough, Dyspnea, Dyspnea on Exertion (RIZZO) Cardiac: No Chest Pain, No Edema, No Syncope Abdominal/Gastrointestinal: No Abdominal Pain, No Nausea, No Vomiting, No D iarrhea Genitourinary Symptoms: No Dysuria Musculoskeletal: No Back Pain, No Neck Pain Skin: No Rash Neurological: No Dizziness, No Focal Weakness, No Sensory Changes Psychological: No Symptoms Endocrine: No Symptoms All Other Systems: Reviewed and Negative <RASHEEDARMANILAURE - Last Filed: 10/15/20 19:33> - Past Medical History Pertinent Past Medical History: Yes Neurological History: No Pertinent History ENT History: No Pertinent History Cardiac History: No Pertinent History, Hypertension Respiratory History: No Pertinent History Endocrine Medical History: No Pertinent History, Diabetes Type II Musculoskeletal History: No Pertinent History GI Medical History: GERD History: No Pertinent History Psycho-Social History: Anxiety, Bipolar, Depression, Panic Disorder Female Reproductive Disorders: No Pertinent History Other Medical History: swelling in lower ext with chronic wounds, Fibromyalgia, IBS, carpeal tunnel, neuropathy, migraines - Past Surgical History Past Surgical History: Yes Neuro Surgical History: No Pertinent History Cardiac: No Pertinent History Respiratory: No Pertinent History Gastrointestinal: No Pertinent History Genitourinary: No Pertinent History Musculoskeletal: No Pertinent History Female Surgical History: No Pertinent History, Section Other Surgical History: T&A - Social History Smoking Status: Former smoker How long have you smoked: 2 yr Exposure to second hand smoke: Yes Drug Use: none Patient Lives Alone: No - Female History Hx Last Menstrual Period: 10/04/20 Hx Now: No <RASHEEDARMANILAURE - Last Filed: 10/15/20 19:33> - Physical Exam General Appearance: no apparent distress Eye Exam: PERRL/EOMI Neck Exam: normal inspection, supple Cardiovascular/Chest Exam: normal heart sounds, regular rate/rhythm Abdominal/Gastrointestinal Exam: soft, No tenderness, No distention, No mass Extremity Exam: non-tender, normal range of motion, normal inspection, no calf tenderness, no pedal edema Neurologic Exam: alert, oriented x 3, cooperative, business information consultant II-XII nml as tested, sensation nml, No motor deficits Skin Exam: normal color, warm, No dry SpO2: 100 <LAURE AUGUSTE - Last Filed: 10/15/20 19:33> - Physical Exam SpO2 Interpretation: normal O2 Delivery: Room Air <LIZETTE SNYDERYESH - Last Filed: 10/15/20 20:54> - Nursing Vital Signs Nursing Vital Signs: Initial Vital Signs Temperature 98.4 F 10/15/20 14:51 Pulse Rate 100 H 10/15/20 14:51 Respiratory Rate 18 10/15/20 14:51 Blood Pressure 140/83 10/15/20 14:51 O2 Sat by Pulse Oximetry 100 10/15/20 14:51 Pain Scale Pain Intensity 0 - Course Nursing assessment & vital signs reviewed: Yes <LAURE AUGUSTE - Last Filed: 10/15/20 19:33> - Course EKG Interpreted by Me: Sinus Rhythm Rhythm Strip: Normal Sinus Rhythm - CT Exams Chest CT Interpretation: Discussed w/radiologist, No PE <CLAUDIO - Last Filed: 10/15/20 20:54> Ordered Tests: Active Orders 24 hr Category Date Time Status EKG-ER Only STAT Care 10/15/20 15:25 Active CHEST 1 VIEW (PORTABLE) Stat Exams 10/15/20 15:26 Completed CHEST WITH CONTRAST [CT] Routine Exams 10/15/20 18:33 Taken CBC W DIFF Stat Lab 10/15/20 15:45 Completed CMP Stat Lab 10/15/20 15:45 Completed D-DIMER QUANTITATIVE Stat Lab 10/15/20 15:45 Completed INFLUENZA A+B VANESSA Stat Lab 10/15/20 15:45 Completed Lactic Acid Stat Lab 10/15/20 15:25 Completed Lactic Acid Stat Lab 10/15/20 18:03 Completed TROPONIN Q3H Lab 10/15/20 15:45 Completed TROPONIN Q3H Lab 10/15/20 18:15 Completed TROPONIN Q3H Lab 10/15/20 21:30 Ordered TROPONIN Q3H Lab 10/16/20 00:30 Ordered TROPONIN Q3H Lab 10/16/20 03:30 Ordered Lab/Rad Data: Laboratory Result Diagrams 10/15/20 15:45 10/15/20 15:45 Laboratory Results 10/15/20 10/15/20 10/15/20 Range/Units 18:15 18:03 15:45 WBC (4.0-10.5) K/mm3 RBC (4.1-5.4) M/mm3 Hgb (12.0-16.0) gm/dl Hct (35-47) % MCV (78-100) fl MCH (26-32) pg MCHC (32-36) g/dl RDW (11.5-14.0) % Plt Count (150-450) K/mm3 MPV (7.5-11.0) fl Gran % (36.0-66.0) % Eos # (Auto) (0-0.5) Absolute Lymphs (auto) (1.0-4.6) Absolute Monos (auto) (0.0-1.3) Lymphocytes % (24.0-44.0) % Monocytes % (0.0-12.0) % Eosinophils % (0.00-5.0) % Basophils % (0.0-0.4) % Absolute Granulocytes (1.4-6.9) Basophils # (0-0.4) D-Dimer (215-500) ng/mL Sodium (137-145) mmol/L Potassium (3.5-5.1) mmol/L Chloride (98-107) mmol/L Carbon Dioxide (22-30) mmol/L Anion Gap (5-15) MEQ/L BUN (7-17) mg/dL Creatinine (0.52-1.04) mg/dL Estimated GFR ML/MIN Glucose (74-106) mg/dL Lactic Acid 1.0 (0.4-2.0) Calcium (8.4-10.2) mg/dL Total Bilirubin (0.2-1.3) mg/dL AST (14-36) U/L ALT (0-35) U/L Alkaline Phosphatase (38-126) U/L Troponin I < 0.012 < 0.012 (0.000-0.034) ng/mL Serum Total Protein (6.3-8.2) g/dL Albumin (3.5-5.0) g/dL Influenza Type A Ag (NEGATIVE) Influenza Type B Ag (NEGATIVE) 10/15/20 10/15/20 10/15/20 Range/Units 15:45 15:45 15:45 WBC 5.8 (4.0-10.5) K/mm3 RBC 4.78 (4.1-5.4) M/mm3 Hgb 11.5 L (12.0-16.0) gm/dl Hct 37.8 (35-47) % MCV 79.1 (78-100) fl MCH 24.1 L (26-32) pg MCHC 30.4 L (32-36) g/dl RDW 15.9 H (11.5-14.0) % Plt Count 266 (150-450) K/mm3 MPV 10.3 (7.5-11.0) fl Gran % 70.4 H (36.0-66.0) % Eos # (Auto) 0.24 (0-0.5) Absolute Lymphs (auto) 1.00 (1.0-4.6) Absolute Monos (auto) 0.44 (0.0-1.3) Lymphocytes % 17.3 L (24.0-44.0) % Monocytes % 7.6 (0.0-12.0) % Eosinophils % 4.2 (0.00-5.0) % Basophils % 0.5 (0.0-0.4) % Absolute Granulocytes 4.07 (1.4-6.9) Basophils # 0.03 (0-0.4) D-Dimer 1240 H* (215-500) ng/mL Sodium 137 (137-145) mmol/L Potassium 3.5 (3.5-5.1) mmol/L Chloride 102 (98-107) mmol/L Carbon Dioxide 27 (22-30) mmol/L Anion Gap 11.5 (5-15) MEQ/L BUN 11 (7-17) mg/dL Creatinine 0.48 L (0.52-1.04) mg/dL Estimated GFR > 60.0 ML/MIN Glucose 117 H (74-106) mg/dL Lactic Acid (0.4-2.0) Calcium 9.4 (8.4-10.2) mg/dL Total Bilirubin 0.60 (0.2-1.3) mg/dL AST 55 H (14-36) U/L ALT 76 H (0-35) U/L Alkaline Phosphatase 71 (38-126) U/L Troponin I (0.000-0.034) ng/mL Serum Total Protein 9.5 H (6.3-8.2) g/dL Albumin 4.2 (3.5-5.0) g/dL Influenza Type A Ag (NEGATIVE) Influenza Type B Ag (NEGATIVE) 10/15/20 10/15/20 Range/Units 15:45 15:25 WBC (4.0-10.5) K/mm3 RBC (4.1-5.4) M/mm3 Hgb (12.0-16.0) gm/dl Hct (35-47) % MCV (78-100) fl MCH (26-32) pg MCHC (32-36) g/dl RDW (11.5-14.0) % Plt Count (150-450) K/mm3 MPV (7.5-11.0) fl Gran % (36.0-66.0) % Eos # (Auto) (0-0.5) Absolute Lymphs (auto) (1.0-4.6) Absolute Monos (auto) (0.0-1.3) Lymphocytes % (24.0-44.0) % Monocytes % (0.0-12.0) % Eosinophils % (0.00-5.0) % Basophils % (0.0-0.4) % Absolute Granulocytes (1.4-6.9) Basophils # (0-0.4) D-Dimer (215-500) ng/mL Sodium (137-145) mmol/L Potassium (3.5-5.1) mmol/L Chloride (98-107) mmol/L Carbon Dioxide (22-30) mmol/L Anion Gap (5-15) MEQ/L BUN (7-17) mg/dL Creatinine (0.52-1.04) mg/dL Estimated GFR ML/MIN Glucose (74-106) mg/dL Lactic Acid 2.8 H (0.4-2.0) Calcium (8.4-10.2) mg/dL Total Bilirubin (0.2-1.3) mg/dL AST (14-36) U/L ALT (0-35) U/L Alkaline Phosphatase (38-126) U/L Troponin I (0.000-0.034) ng/mL Serum Total Protein (6.3-8.2) g/dL Albumin (3.5-5.0) g/dL Influenza Type A Ag NEGATIVE (NEGATIVE) Influenza Type B Ag NEGATIVE (NEGATIVE) - Progress Progress: unchanged <LAURE AUGUSTE - Last Filed: 10/15/20 19:33> - Progress Progress: improved Air Movement: good Blood Culture(s) Obtained: No Antibiotics given: No Counseled pt/family regarding: lab results, diagnosis, need for follow-up, rad results <LIZETTE SNYDERYESH - Last Filed: 10/15/20 20:54> <LAURE AUGUSTE - Last Filed: 10/15/20 19:33> - Departure Departure Disposition: Home Critical Care Time: Yes Critical Care Time(excluding separately billable procedures): Critical 30-74 mins <CLAUDIO,MICHAEL - Last Filed: 10/15/20 20:54> - Departure Clinical Impression: Shortness of breath, Elevated d-dimer Condition: Stable Referrals: ALF VELEZ [Primary Care Provider] - Instructions: Coronavirus Disease 2019 (COVID-19) (DC), Shortness of Breath (Dyspnea) (DC) Additional Instructions: ARUN GEE was seen on 10/15/20 n the Emergency Room. At that time you were treated for an emergent condition, during your visit Laboratory, Radiology and/or other procedures may have been ordered. It is very important that you follow-up with your Primary Care Physician ALF VELEZ within the next 24-48 hours to review your Emergency Room visit and the final results of testing that was ordered. Some test results such as Urine Cultures, Blood Cultures, and other cultures if ordered will not be finalized for 24-48 hours. If you do not have a Primary Care Provider please call the medical records department at [phone] ext [phone] to obtain a copy of your results or you may sign into our patient portal to obtain these results by visiting us @ [email or web address] and completing the following steps: 1. Click on the Patient Portal link 2. Click the Patient Self Enrollment Link to complete the enrollment form and entering your 3. Once the enrollment form is completed you will receive an email with a temporary ID and password at the email address you provided. 4. Next choose a user name and password. Your user name must be at least 4 characters long and your password must be at least 4 characters long. 5. Choose a security question from the list and provide your answer to the question. If you already have signed into the Health Portal you may access your Health Care Information 30/04 by the following steps: 1. Login to our website @ [email or web address] 2. Enter your original user name and password. FAQS The [facility] Health Portal is an online tool that contains your Lab Results, Radiology Reports, Visit History, Discharge Instructions and Health Summary Lab and Radiology Results will not be available for 72 hours on the portal. The Portal is a secure site, passwords are encryted and URLs are re-written so they cannot be copied and pasted. You and authorized family members are the only ones who can access your Portal. Also there is a timeout feature that protects your information if you leave the Portal page open. If you have technical difficulty please use the Contact Us link on the page this will allow you to submit any questions you have regarding the Portal or you may contact the Medical Record Department at [phone] ext [phone].
--- NOTE | 2020-10-16 08:51 | XRAY ---
Indication: Chest tightness, short of breath, and elevated d-dimer. Multiple contiguous axial images obtained through the chest using 100 cc Isovue 370 contrast and PE protocol. Comparison: October 15, 2019. There is again poor opacification of the pulmonary arteries limiting evaluation for pulmonary embolus. No obvious central pulmonary embolus. Heart is not enlarged. Aorta is normal in course and caliber. No pathologic mediastinal/hilar lymphadenopathy. Lungs are inflated with stable small left lower lobe calcified granuloma. No suspicious pulmonary mass, infiltrate, or effusion. Bony thorax intact. Limited upper abdomen again demonstrates fatty liver and 14.4 cm splenomegaly. Impression: 1. Pulmonary embolus evaluation limited due to suboptimal opacification. No obvious central pulmonary embolus. 2. Again incidental left lower lobe calcified granuloma, fatty liver, and splenomegaly. 3. Remaining CT chest with contrast exam is negative.
== END 2020-10-15 21:22 | disposition home or self-care (01) ==
LOC: ED 14:24
DX: R06.02 Shortness of breath (principal); R79.1 Abnormal coagulation profile; Z79.899 Other long term (current) drug therapy; R05 Cough; R06.00 Dyspnea, unspecified; I10 Essential (primary) hypertension; E11.9 Type 2 diabetes mellitus without complications
CPT/HCPCS: 36000; 36415; 71045; 71260; 80053; 83605; 84484; 85025; 85379; 87400; 93005; 99284; 99291; U0003

== ENCOUNTER 2023-02-09 18:00 | Observation (INO) | payer OTHER ==
[2023-02-09] MEDS ORDERED: TORAdol 30 mg Injection IV ONE (19:50)
[2023-02-09] MEDS ORDERED: VANCOMYCIN 2 GRAM/400 ML BAG 2 GM/400 ML PIGGYBACK IV ONE ×2 (19:50→20:56)
[2023-02-09] MEDS ORDERED: PIPERACILLIN/TAZOBACTAM 3.375 GM in Sodium Chloride 100ML MINI-BAG PLUS 100 ML IV ONE (19:51)
--- NOTE | 2023-02-09 19:52 | ERPHSYRPT ---
- History of Present Illness Time Seen by Provider: 02/09/23 19:52 Source: patient Exam Limitations: no limitations Patient Subjective Stated Complaint: PT states "For the past three months I have been taking care of the wounds on my legs. Last week I had an ultrasound to see if I had an ultrasound looking for blood clots due to swelling. But today, I can barely move my right leg because it hurts so bad and it is really swollen." Triage Nursing Assessment: PT presented alert and oriented x 3, skin pwd. Pt able to speak in clear full setnences pt is morbidly obese female with several foul smelling open wounds on her legs bilat. CSM X 4. Pt right thigh red and swollen, bilateral leg weeping. Physician History: Patient presents w/ RLE pain, swelling, redness and drainage for the past 3mo that has worsened over the past week. RLE venous duplex neg for DVT w/in past week. Pain is worst at plantar aspect of right foot and radiates up leg to the groin. She denies F/C/N/V. Hx of MRSA infection in the past. Patient has lymphedema and has a BMI of 81. Timing/Duration: worse, other (3mo) Quality: painful Severity: severe Location: extremities (b/l LE R>L) Possible Causes: no cause identified Associated Symptoms: change in skin texture, edema, numbness (RLE from knee to ankle anteriorly), No difficulty breathing, No fever Allergies/Adverse Reactions: latex Allergy (Mild, Verified 02/09/23 23:20) Rash promethazine [From Phenergan] Adverse Reaction (Verified 02/09/23 23:20) Not taken before. Reported multiple family members having severe reactions to phernergan. Home Medications: Furosemide 20 mg [Lasix 20 mg] 40 mg PO DAILY 09/19/19 [History] Potassium Chloride Tab* [Klor Con 10 MEQ] 10 meq PO DAILY 09/19/19 [History] Amlodipine Besylate 5 mg [Norvasc 5 mg] 5 mg PO DAILY 04/08/20 [History] Metoprolol Succinate [Toprol Xl] 25 mg PO TID 09/19/20 [History] Ergocalciferol (Vitamin D2) [Vitamin D2] 1 cap PO 2XW 02/09/23 [History] Ertugliflozin Pidolate [Steglatro] 5 mg PO DAILY 02/09/23 [History] Ferrous Sulfate [Ferosul] 325 mg PO DAILY 02/09/23 [History] Omeprazole 40 mg PO DAILY 02/09/23 [History] Hx Tetanus, Diphtheria Vaccination/Date Given: Yes Hx Influenza Vaccination/Date Given: No Hx Pneumococcal Vaccination/Date Given: No Immunizations Up to Date: Yes Travel Risk - International Travel Have you traveled outside of the country in past 3 weeks: No - Coronavirus Screening Are you exhibiting any of the following symptoms?: No Close contact with a COVID-19 positive Pt in past 14-21 Days: No - Vaccine Status Have you recieved a Covid-19 vaccination: No - Review of Systems Constitutional: No Symptoms Eyes: No Symptoms Ears, Nose, & Throat: No Symptoms Respiratory: No Symptoms Cardiac: No Symptoms Abdominal/Gastrointestinal: Other (wound on ) Genitourinary Symptoms: No Symptoms Musculoskeletal: No Symptoms Skin: Cellulitis (b/l LE), Rash (scaly plaques b/l), No Dryness Neurological: Parasthesia Psychological: No Symptoms Endocrine: No Symptoms Hematologic/Lymphatic: No Symptoms Immunological/Allergic: No Symptoms All Other Systems: Reviewed and Negative - Past Medical History Pertinent Past Medical History: Yes Neurological History: Migraines, Peripheral Neuropathy ENT History: No Pertinent History Cardiac History: Hypertension Respiratory History: No Pertinent History Endocrine Medical History: Diabetes Type II Musculoskeletal History: Fibromyalgia, Osteoarthritis GI Medical History: GERD History: No Pertinent History Psycho-Social History: Anxiety, Bipolar, Depression, Panic Disorder Female Reproductive Disorders: No Pertinent History Other Medical History: 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 (RIGHT WORSE THAN LEFT); FIBROMYALGIA, HAS AN INHALER FOR HER LUNGS HER WEIGHT PUTS MORE STRESS ON HER LUNGS, ETC.; BILATERAL CTS (RIGHT WORSE THAN LEFT), BLE ULCERS TO POSTERIOR LEGS - Past Surgical History Past Surgical History: Yes Neuro Surgical History: No Pertinent History Cardiac: No Pertinent History Respiratory: No Pertinent History Gastrointestinal: No Pertinent History Genitourinary: No Pertinent History Musculoskeletal: No Pertinent History Female Surgical History: No Pertinent History, Section Other Surgical History: T&A - Social History Smoking Status: Former smoker How long have you smoked: 2 yr Exposure to second hand smoke: Yes Drug Use: none Patient Lives Alone: No - Female History Hx Last Menstrual Period: PCOS irregular Hx Now: No - Nursing Vital Signs Nursing Vital Signs: Initial Vital Signs Pulse Rate 109 H 02/09/23 18:04 Respiratory Rate 18 02/09/23 18:04 O2 Sat by Pulse Oximetry 97 02/09/23 18:04 Pain Scale Pain Intensity 0 - Physical Exam General Appearance: no apparent distress, obese Eye Exam: eyes nml inspection Ears, Nose, Throat Exam: normal ENT inspection Neck Exam: normal inspection Cardiovascular Exam: tachycardia, capillary refill <2 sec Gastrointestinal/Abdomen Exam: soft, other (chronic non healing abdominal wound), No tenderness, No guarding Extremity Exam: calf tenderness (right), parasthesia, inflammation, swelling, tenderness, other (Right foot: + tenderness to palpation on plantar medial arch, distal to insertion of calcaneus.) Neurologic Exam: alert, oriented x 3, cooperative, sensation nml, No motor deficits Skin Exam: dry, other (Sharply demarcated erythematous, silver scale plaques on b/l LE w/ surrounding erythema) SpO2 Interpretation: normal SpO2: 98 O2 Delivery: Room Air - Course Nursing assessment & vital signs reviewed: Yes - Radiology Exams Right Foot X-ray Interpretation: Interpreted by me, Reviewed by me, Teleradiologist Report, Negative Ordered Tests: Active Orders 24 hr Category Date Time Status Cashier Office STAT Care 02/09/23 19:49 Completed Code Status Order ROUTINE Care 02/09/23 23:04 Active Fall Protocol Q1H Care 02/09/23 23:04 Active IV Care Q6H Care 02/09/23 23:04 Active IV Insertion STAT Care 02/09/23 19:49 Completed IV Insertion STAT Care 02/09/23 19:50 Completed POCT Glucose Check ACHS Care 02/09/23 23:[address] in Observation ROUTINE Care 02/09/23 23:04 Active Pulse Oximetry (ED) STAT Care 02/09/23 19:49 Completed Consistent Carbohydrate Diet 1800 Calorie Diet 02/10/23 Breakfast Active FOOT (2 VIEWS) Stat Exams 02/09/23 19:51 Completed BLOOD CULTURE Stat Lab 02/09/23 20:10 Received BLOOD CULTURE Stat Lab 02/09/23 20:10 Received BMP AM.LAB Lab 02/10/23 04:00 Ordered CBC W DIFF AM.LAB Lab 02/10/23 04:00 Ordered CBC W DIFF Stat Lab 02/09/23 20:10 Completed CMP Stat Lab 02/09/23 20:10 Completed ESR [Erythrocyte Sedimentation Rate] Stat Lab 02/09/23 20:10 Completed Lactic Acid Stat Lab 02/09/23 20:10 Completed UA W/RFX UR CULTURE Stat Lab 02/09/23 19:55 Completed Medication Summary Generic Name Dose Route Start Last Admin Trade Name Chitra PRN Reason Stop Dose Admin Sodium Chloride 1,000 mls @ 100 mls/hr 02/09/23 23:04 02/10/23 00:44 Sodium Chloride 0.9% 1000 Ml IV 03/11/23 23:03 100 mls/hr .Q10H ANDRES Administration Piperacillin Sod/Tazobactam 100 mls @ 200 mls/hr 02/10/23 06:00 Sod 4.5 gm/ Sodium Chloride IV 03/12/23 05:59 Q8HT ANDRES Vancomycin HCl 2 gm in 400 mls @ 133 mls/hr 02/09/23 23:04 02/10/23 00:13 Vancomycin 2 Gram/400 Ml Bag IV 03/11/23 23:03 Not Given Q24H ANDRES Insulin Human Lispro 0 unit 02/09/23 23:04 Insulin Lispro 1 Unit SQ 03/11/23 23:03 UD PRN HYPERGLYCEMIA Discontinued Medications Generic Name Dose Route Start Last Admin Trade Name Chitra PRN Reason Stop Dose Admin Vancomycin HCl 2 gm in 400 mls @ 133.333 mls/hr 02/09/23 19:50 02/09/23 20:57 Vancomycin 2 Gram/400 Ml Bag IV 02/09/23 22:49 133 ml/hr STAT ONE 133 mls/hr Administration Piperacillin Sod/Tazobactam 100 mls @ 200 mls/hr 02/09/23 19:51 02/09/23 20:05 Sod 3.375 gm/ Sodium Chloride IV 02/09/23 20:20 200 mls/hr STAT ONE Administration Sodium Chloride Confirm 02/09/23 20:01 Sodium Chloride 100ml Mini-Bag Plus Administered 02/09/23 20:02 Dose 100 mls @ ud IV .STK-MED ONE Vancomycin HCl Confirm 02/09/23 20:56 Vancomycin 2 Gram/400 Ml Bag Administered 02/09/23 20:57 Dose 2 gm in 400 mls @ ud IV .STK-MED ONE Ketorolac Tromethamine 30 mg 02/09/23 19:50 02/09/23 20:05 Ketorolac Tromethamine 30 Mg/Ml Inj IV 02/09/23 19:51 30 mg STAT ONE Administration Ketorolac Tromethamine Confirm 02/09/23 20:01 Ketorolac Tromethamine 30 Mg/Ml Inj Administered 02/09/23 20:02 Dose 30 mg .ROUTE .STK-MED ONE Piperacillin Sod/Tazobactam Sod Confirm 02/09/23 20:01 Piperacillin/Tazobactam Sodium 3.375 Gm Vial Administered 02/09/23 20:02 Dose 3.375 gm IV .STK-MED ONE Lab/Rad Data: Laboratory Result Diagrams 02/09/23 20:10 02/09/23 20:10 Laboratory Results 02/09/23 02/09/23 02/09/23 Range/Units 20:10 20:10 20:10 WBC (4.0-10.5) x10^3/uL RBC (4.1-5.4) x10^6/uL Hgb (12.0-16.0) g/dL Hct (35-47) % MCV (78-100) fL MCH (26-32) pg MCHC (32-36) g/dL RDW (11.5-14.0) % Plt Count (150-450) x10^3/uL MPV (7.5-11.0) fL Gran % (36.0-66.0) % Immature Gran % (Auto) (0.00-0.4) % Nucleat RBC Rel Count (0.00-0.1) % Eos # (Auto) (0-0.5) x10^3/uL Immature Gran # (Auto) (0.00-0.03) x10^3u/L Absolute Lymphs (auto) (1.0-4.6) x10^3/uL Absolute Monos (auto) (0.0-1.3) x10^3/uL Absolute Nucleated RBC (0.00-0.01) x10^3u/L Lymphocytes % (24.0-44.0) % Monocytes % (0.0-12.0) % Eosinophils % (0.00-5.0) % Basophils % (0.0-0.4) % Absolute Granulocytes (1.4-6.9) x10^3/uL Basophils # (0-0.4) x10^3/uL ESR (0-20) mm/hr Sodium 138 (137-145) mmol/L Potassium 3.7 (3.5-5.1) mmol/L Chloride 101 (98-107) mmol/L Carbon Dioxide 29 (22-30) mmol/L Anion Gap 11.6 (5-15) MEQ/L BUN 10 (7-17) mg/dL Creatinine 0.44 L (0.52-1.04) mg/dL Estimated GFR > 60.0 ML/MIN Glucose 106 (74-106) mg/dL Lactic Acid 1.6 (0.4-2.0) Calcium 8.4 (8.4-10.2) mg/dL Total Bilirubin 0.60 (0.2-1.3) mg/dL AST 34 (14-36) U/L ALT 32 (0-35) U/L Alkaline Phosphatase 61 (38-126) U/L Serum Total Protein 9.3 H (6.3-8.2) g/dL Albumin 3.7 (3.5-5.0) g/dL Urine Color (Yellow) Urine Appearance (Clear) Urine pH (4.6-8.0) Ur Specific [place] (1.005-1.030) Urine Protein (Negative) Urine Glucose (UA) (Negative) mg/dL Urine Ketones (Negative) Urine Blood (Negative) Urine Nitrite (Negative) Urine Bilirubin (Negative) Urine Urobilinogen (0.2) mg/dL Ur Leukocyte Esterase (Negative) U Hyaline Cast (Auto) (0-2) /LPF Urine Microscopic RBC (0-5) /HPF Urine Microscopic WBC (0-5) /HPF Ur Epithelial Cells (None Seen) /HPF Urine Bacteria (None Seen) /HPF Urine Culture Reflexed (NO) Slides for Path Review 02/09/23 02/09/23 Range/Units 20:10 19:55 WBC 8.0 (4.0-10.5) x10^3/uL RBC 4.87 (4.1-5.4) x10^6/uL Hgb 8.5 L (12.0-16.0) g/dL Hct 32.5 L (35-47) % MCV 66.7 L (78-100) fL MCH 17.5 L (26-32) pg MCHC 26.2 L (32-36) g/dL RDW 19.7 H (11.5-14.0) % Plt Count 343 (150-450) x10^3/uL MPV 9.6 (7.5-11.0) fL Gran % 77.1 H (36.0-66.0) % Immature Gran % (Auto) 0.5 H (0.00-0.4) % Nucleat RBC Rel Count 0.0 (0.00-0.1) % Eos # (Auto) 0.21 (0-0.5) x10^3/uL Immature Gran # (Auto) 0.04 H (0.00-0.03) x10^3u/L Absolute Lymphs (auto) 1.06 (1.0-4.6) x10^3/uL Absolute Monos (auto) 0.49 (0.0-1.3) x10^3/uL Absolute Nucleated RBC 0.00 (0.00-0.01) x10^3u/L Lymphocytes % 13.2 L (24.0-44.0) % Monocytes % 6.1 (0.0-12.0) % Eosinophils % 2.6 (0.00-5.0) % Basophils % 0.5 (0.0-0.4) % Absolute Granulocytes 6.17 (1.4-6.9) x10^3/uL Basophils # 0.04 (0-0.4) x10^3/uL ESR (0-20) mm/hr Sodium (137-145) mmol/L Potassium (3.5-5.1) mmol/L Chloride (98-107) mmol/L Carbon Dioxide (22-30) mmol/L Anion Gap (5-15) MEQ/L BUN (7-17) mg/dL Creatinine (0.52-1.04) mg/dL Estimated GFR ML/MIN Glucose (74-106) mg/dL Lactic Acid (0.4-2.0) Calcium (8.4-10.2) mg/dL Total Bilirubin (0.2-1.3) mg/dL AST (14-36) U/L ALT (0-35) U/L Alkaline Phosphatase (38-126) U/L Serum Total Protein (6.3-8.2) g/dL Albumin (3.5-5.0) g/dL Urine Color Yellow (Yellow) Urine Appearance Clear (Clear) Urine pH 6.0 (4.6-8.0) Ur Specific [place] 1.025 (1.005-1.030) Urine Protein Negative (Negative) Urine Glucose (UA) >=1000 A (Negative) mg/dL Urine Ketones Negative (Negative) Urine Blood Negative (Negative) Urine Nitrite Negative (Negative) Urine Bilirubin Negative (Negative) Urine Urobilinogen 0.2 (0.2) mg/dL Ur Leukocyte Esterase Negative (Negative) U Hyaline Cast (Auto) NONE SEEN (0-2) /LPF Urine Microscopic RBC 0-2 (0-5) /HPF Urine Microscopic WBC 0-2 (0-5) /HPF Ur Epithelial Cells None Seen (None Seen) /HPF Urine Bacteria None Seen (None Seen) /HPF Urine Culture Reflexed NO (NO) Slides for Path Review YES - Progress Progress: unchanged Progress Note: Discussed admission w/ Dr. Berrios for IV abx. Will place in observation. Continue Vanc, Zosyn. No drainage to culture on exam. Discussed with Dr.: Other (Agustina) Will see patient in: hospital (observation) Counseled pt/family regarding: lab results, diagnosis, rad results Medical Desision Making - Discussion of managment Care discussed with:: hospitalist Reviewed:: Test results Agreed on:: Treatment plan, place in obs Will see patient: in hospital - Diagnostic Testing Diagnostic test were ordered, analyzed, and reviewed by me: Yes Radiological Interpretation: Reviewed by me, Teleradiologist Report - Risk of complications The pt has a high risk of morbidity or mortality based on: Decision regarding hospitilization or escalation of hosp level of care - Departure Departure Disposition: Observation Clinical Impression: Cellulitis of lower extremity, Tachycardia, Lymphedema, Microcytic anemia, History of MRSA infection, Right leg pain, Right leg swelling Condition: Stable Critical Care Time: No
[2023-02-09] MEDS ORDERED: PIPERACILLIN/TAZOBACTAM IV ONE (20:01)
[2023-02-09] MEDS ORDERED: TORAdol 30 mg Injection ONE (20:01)
[2023-02-09] MEDS ORDERED: Sodium Chloride 100ML MINI-BAG PLUS 100 ML IV ONE (20:01)
[2023-02-09 20:24] LABS: Absolute Neutrophil Ct (ANC) 6.17 x10^3/uL (1.4-6.9); BASOPHIL % 0.5 % (0.0-0.4); Basophil (Absolute #) 0.04 x10^3/uL (0-0.4); Eosinophil % 2.6 % (0.00-5.0); Eosinophil (Absolute #) 0.21 x10^3/uL (0-0.5); Hematocrit 32.5 % (35-47); Hemoglobin 8.5 g/dL (12.0-16.0); IMMATURE GRAN # 0.04 x10^3u/L (0.00-0.03); IMMATURE GRAN % 0.5 % (0.00-0.4); Lymphocyte (Absolute #) 1.06 x10^3/uL (1.0-4.6); Lymphocytes % 13.2 % (24.0-44.0); Mean Cell Volume 66.7 fL (78-100); Mean Corpuscular Hemoglobin 17.5 pg (26-32); Mean Corpuscular Hgb Concent. 26.2 g/dL (32-36); Mean Platelet Volume 9.6 fL (7.5-11.0); Monocyte (Absolute #) 0.49 x10^3/uL (0.0-1.3); Monocytes % 6.1 % (0.0-12.0); Neutrophil % 77.1 % (36.0-66.0); Platelet Count 343 x10^3/uL (150-450); Red Blood Count 4.87 x10^6/uL (4.1-5.4); Red Cell Distribution Width 19.7 % (11.5-14.0)
[2023-02-09 20:31] LABS: ADD URINE CULTURE? NO (NO); Appearance Clear (Clear); Bacteria None Seen /HPF (None Seen); Bilirubin Negative (Negative); Blood Negative (Negative); Epithelial Cells None Seen /HPF (None Seen); Glucose, Urine >=1000 mg/dL (Negative); Hyaline Casts NONE SEEN /LPF (0-2); Ketones Negative (Negative); Leukocyte Esterase Negative (Negative); Nitrite Negative (Negative); Protein,Urine Dip Negative (Negative); RBC 0-2 /HPF (0-5); Specific Gravity 1.025 (1.005-1.030); Urobilinogen 0.2 mg/dL (0.2); WBC 0-2 /HPF (0-5)
[2023-02-09 20:32] LABS: ALBUMIN 3.7 g/dL (3.5-5.0); ALKALINE PHOSPHATASE 61 U/L (38-126); ANION GAP 11.6 MEQ/L (5-15); BLOOD UREA NITROGEN 10 mg/dL (7-17); CHLORIDE 101 mmol/L (98-107); Calcium 8.4 mg/dL (8.4-10.2); Carbon Dioxide 29 mmol/L (22-30); Creatinine 1 0.44 mg/dL (0.52-1.04); EST GLOMERULAR FILTRATION RATE > 60.0 ML/MIN; Glucose 106 mg/dL (74-106); Potassium 3.7 mmol/L (3.5-5.1); SGOT/AST 34 U/L (14-36); SGPT/ALT 32 U/L (0-35); SODIUM 138 mmol/L (137-145); Total Protein 9.3 g/dL (6.3-8.2)
[2023-02-09 22:32] LABS: Slide Review 1 YES
--- NOTE | 2023-02-09 22:53 | XRAY ---
Indication: Pain. Limited range of motion. No known injury. Comparison: None 3 nonweightbearing views right foot demonstrates small posterior heel spur. No other bony, articular, or soft tissue abnormalities.
[2023-02-09] MEDS ORDERED: HUMALOG SQ PRN (23:04)
[2023-02-09] MEDS ORDERED: VANCOMYCIN 2 GRAM/400 ML BAG 2 GM/400 ML PIGGYBACK IV SCH (23:04)
[2023-02-09] MEDS ORDERED: Sodium Chloride 0.9% 1000 ML 1,000 ML IV SCH (23:04)
[2023-02-10] MEDS ORDERED: Sodium Chloride 0.9% 1000 ML 1,000 ML ONE (00:43)
--- NOTE | 2023-02-10 02:02 | PCM.HP ---
History of Present Illness - Chief Complaint Chief Complaint: cellultis Date: 02/10/23 History of Present Illness: Ms. Rosado is a 27 year-old female with HTN, DM2, and obesity who presents with bilateral leg wounds. She admits to this being an ongoing issue for 3 months, and she has been trying to take care of the wounds on her own. Upon arrival to [facility], her laboratory data and imaging were unremarkable outside of anemia, and on my examination she is resting comfortably denying any current fevers, chills, nausea, vomiting, diarrhea, syncope, presyncope, visual changes, orthopnea, PND, odynophagia, dysphagia, chest pain, shortness of breath, belly pain, dysuria, hematuria, melena, hematochezia, or neurological changes. All other systems were reviewed and were negative. - Review of Systems Constitutional: Other ( PER HPI) Medications & Allergies Home Medications: Home Medication List Furosemide 20 mg [Lasix 20 mg] 40 mg PO DAILY 09/19/19 [History Confirmed 02/09/23] Potassium Chloride Tab* [Klor Con 10 MEQ] 10 meq PO DAILY 09/19/19 [History Confirmed 02/09/23] Amlodipine Besylate 5 mg [Norvasc 5 mg] 5 mg PO DAILY 04/08/20 [History Confirmed 02/09/23] Metoprolol Succinate [Toprol Xl] 25 mg PO TID 09/19/20 [History Confirmed 02/09/23] Ergocalciferol (Vitamin D2) [Vitamin D2] 1 cap PO 2XW 02/09/23 [History Confirmed 02/09/23] Ertugliflozin Pidolate [Steglatro] 5 mg PO DAILY 02/09/23 [History Confirmed 02/09/23] Ferrous Sulfate [Ferosul] 325 mg PO DAILY 02/09/23 [History Confirmed 02/09/23] Omeprazole 40 mg PO DAILY 02/09/23 [History Confirmed 02/09/23] Allergies/Adverse Reactions: Allergies Allergy/AdvReac Type Severity Reaction Status Date / Time latex Allergy Mild Rash Verified 02/09/23 23:20 promethazine [From Phenergan] AdvReac Verified 02/09/23 23:20 - Past Medical History Past Medical History: Yes Neurological History: Migraines, Peripheral Neuropathy ENT History: No Pertinent History Cardiac History: Hypertension Respiratory History: No Pertinent History Endocrine Medical History: Diabetes Type II Musculoskelatal History: Fibromyalgia, Osteoarthritis GI Medical History: GERD History: No Pertinent History Pyscho-Social History: Anxiety, Bipolar, Depression, Panic Disorder Reproductive Disorders: No Pertinent History Comment: 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 (RIGHT WORSE THAN LEFT); FIBROMYALGIA, HAS AN INHALER FOR HER LUNGS HER WEIGHT PUTS MORE STRESS ON HER LUNGS, ETC.; BILATERAL CTS (RIGHT WORSE THAN LEFT), BLE ULCERS TO POSTERIOR LEGS - Female History Hx Last Menstrual Period: PCOS irregular Are you now?: No - Past Surgical History Past Surgical History: Yes Neuro Surgical History: No Pertinent History Cardiac History: No Pertinent History Respiratory Surgery: No Pertinent History GI Surgical History: No Pertinent History Genitourinary Surgical Hx: No Pertinent History Musculskeletal Surgical Hx: No Pertinent History Female Surgical History: No Pertinent History, Section Other Surgical History: T&A - Social History Smoking Status: Former smoker How long have you smoked: 2 yr Exposure to second hand smoke: Yes Alcohol: None Drug Use: none - Physical Exam Vital Signs: Vital Signs - 24 hr Temp Pulse Resp BP BP Pulse Ox 02/10/23 01:55 98 02/09/23 23:41 97.5 F 101 H 20 122/68 100 02/09/23 22:00 101 H 18 93/50 93/50 99 02/09/23 21:55 100 02/09/23 21:00 99 H 106/59 99 02/09/23 20:00 117/59 02/09/23 19:30 132/62 02/09/23 19:00 100 H 18 131/62 132/62 98 02/09/23 18:30 110 H 18 117/50 98 02/09/23 18:05 97.7 F 111 H 18 115/50 115/50 98 02/09/23 18:04 109 H 18 97 General Appearance: no apparent distress Neurologic Exam: alert, oriented x 3 Eye Exam: PERRL/EOMI Ears, Nose, Throat Exam: normal ENT inspection Neck Exam: normal inspection Respiratory Exam: normal breath sounds Cardiovascular Exam: regular rate/rhythm Gastrointestinal/Abdomen Exam: soft, normal bowel sounds Pelvic Exam: not done Rectal Exam: deferred Back Exam: normal inspection Extremity Exam: normal inspection Skin Exam: other (BILATERAL LEG WOUNDS) Results - Labs Lab/Micro Results: Lab Results-Last 24 Hours 02/09/23 02/09/23 02/09/23 Range/Units 19:55 20:10 20:10 WBC 8.0 (4.0-10.5) x10^3/uL RBC 4.87 (4.1-5.4) x10^6/uL Hgb 8.5 L (12.0-16.0) g/dL Hct 32.5 L (35-47) % MCV 66.7 L (78-100) fL MCH 17.5 L (26-32) pg MCHC 26.2 L (32-36) g/dL RDW 19.7 H (11.5-14.0) % Plt Count 343 (150-450) x10^3/uL MPV 9.6 (7.5-11.0) fL Gran % 77.1 H (36.0-66.0) % Immature Gran % (Auto) 0.5 H (0.00-0.4) % Nucleat RBC Rel Count 0.0 (0.00-0.1) % Eos # (Auto) 0.21 (0-0.5) x10^3/uL Immature Gran # (Auto) 0.04 H (0.00-0.03) x10^3u/L Absolute Lymphs (auto) 1.06 (1.0-4.6) x10^3/uL Absolute Monos (auto) 0.49 (0.0-1.3) x10^3/uL Absolute Nucleated RBC 0.00 (0.00-0.01) x10^3u/L Lymphocytes % 13.2 L (24.0-44.0) % Monocytes % 6.1 (0.0-12.0) % Eosinophils % 2.6 (0.00-5.0) % Basophils % 0.5 (0.0-0.4) % Absolute Granulocytes 6.17 (1.4-6.9) x10^3/uL Basophils # 0.04 (0-0.4) x10^3/uL ESR (0-20) mm/hr Sodium (137-145) mmol/L Potassium (3.5-5.1) mmol/L Chloride (98-107) mmol/L Carbon Dioxide (22-30) mmol/L Anion Gap (5-15) MEQ/L BUN (7-17) mg/dL Creatinine (0.52-1.04) mg/dL Estimated GFR ML/MIN Glucose (74-106) mg/dL Lactic Acid 1.6 (0.4-2.0) Calcium (8.4-10.2) mg/dL Total Bilirubin (0.2-1.3) mg/dL AST (14-36) U/L ALT (0-35) U/L Alkaline Phosphatase (38-126) U/L Serum Total Protein (6.3-8.2) g/dL Albumin (3.5-5.0) g/dL Urine Color Yellow (Yellow) Urine Appearance Clear (Clear) Urine pH 6.0 (4.6-8.0) Ur Specific [place] 1.025 (1.005-1.030) Urine Protein Negative (Negative) Urine Glucose (UA) >=1000 A (Negative) mg/dL Urine Ketones Negative (Negative) Urine Blood Negative (Negative) Urine Nitrite Negative (Negative) Urine Bilirubin Negative (Negative) Urine Urobilinogen 0.2 (0.2) mg/dL Ur Leukocyte Esterase Negative (Negative) U Hyaline Cast (Auto) NONE SEEN (0-2) /LPF Urine Microscopic RBC 0-2 (0-5) /HPF Urine Microscopic WBC 0-2 (0-5) /HPF Ur Epithelial Cells None Seen (None Seen) /HPF Urine Bacteria None Seen (None Seen) /HPF Urine Culture Reflexed NO (NO) Slides for Path Review YES 02/09/23 02/09/23 Range/Units 20:10 20:10 WBC (4.0-10.5) x10^3/uL RBC (4.1-5.4) x10^6/uL Hgb (12.0-16.0) g/dL Hct (35-47) % MCV (78-100) fL MCH (26-32) pg MCHC (32-36) g/dL RDW (11.5-14.0) % Plt Count (150-450) x10^3/uL MPV (7.5-11.0) fL Gran % (36.0-66.0) % Immature Gran % (Auto) (0.00-0.4) % Nucleat RBC Rel Count (0.00-0.1) % Eos # (Auto) (0-0.5) x10^3/uL Immature Gran # (Auto) (0.00-0.03) x10^3u/L Absolute Lymphs (auto) (1.0-4.6) x10^3/uL Absolute Monos (auto) (0.0-1.3) x10^3/uL Absolute Nucleated RBC (0.00-0.01) x10^3u/L Lymphocytes % (24.0-44.0) % Monocytes % (0.0-12.0) % Eosinophils % (0.00-5.0) % Basophils % (0.0-0.4) % Absolute Granulocytes (1.4-6.9) x10^3/uL Basophils # (0-0.4) x10^3/uL ESR (0-20) mm/hr Sodium 138 (137-145) mmol/L Potassium 3.7 (3.5-5.1) mmol/L Chloride 101 (98-107) mmol/L Carbon Dioxide 29 (22-30) mmol/L Anion Gap 11.6 (5-15) MEQ/L BUN 10 (7-17) mg/dL Creatinine 0.44 L (0.52-1.04) mg/dL Estimated GFR > 60.0 ML/MIN Glucose 106 (74-106) mg/dL Lactic Acid (0.4-2.0) Calcium 8.4 (8.4-10.2) mg/dL Total Bilirubin 0.60 (0.2-1.3) mg/dL AST 34 (14-36) U/L ALT 32 (0-35) U/L Alkaline Phosphatase 61 (38-126) U/L Serum Total Protein 9.3 H (6.3-8.2) g/dL Albumin 3.7 (3.5-5.0) g/dL Urine Color (Yellow) Urine Appearance (Clear) Urine pH (4.6-8.0) Ur Specific [place] (1.005-1.030) Urine Protein (Negative) Urine Glucose (UA) (Negative) mg/dL Urine Ketones (Negative) Urine Blood (Negative) Urine Nitrite (Negative) Urine Bilirubin (Negative) Urine Urobilinogen (0.2) mg/dL Ur Leukocyte Esterase (Negative) U Hyaline Cast (Auto) (0-2) /LPF Urine Microscopic RBC (0-5) /HPF Urine Microscopic WBC (0-5) /HPF Ur Epithelial Cells (None Seen) /HPF Urine Bacteria (None Seen) /HPF Urine Culture Reflexed (NO) Slides for Path Review - Radiology Impressions Radiology Exams & Impressions: Radiology Procedures Category Date Time Status FOOT (2 VIEWS) Stat Exams 02/09/23 19:51 Completed Assessment/Plan (1) Cellulitis of lower extremity Current Visit: Yes Status: Acute Assessment & Plan: ASSESSMENT 1. Cellulitis 2. Bilateral Leg Wounds 3. Type II Diabetes Mellitus 4. Hypertension 5. Morbid Obesity PLAN 1. Broad ABx 2. Wound Care 3. Work-up for VTE negative in past week 4. Continue home medications Lovenox/PPI The entirety of this encounter was done via telemedicine Mic Berrios MD Pulmonary and Critical Care Medicine Telemedicine Encounter - Telemedicine Encounter Telemedicine Encounter: The entirety of this encounter was performed via Telemedicine"
[2023-02-10] MEDS ORDERED: MORPHINE SULFATE 2 MG INJ IV PRN (04:22)
[2023-02-10] MEDS: TYLENOL 325 MG PO PRN ×2 (04:33→23:11)
[2023-02-10] MEDS ORDERED: PIPERACILLIN/TAZOBACTAM IV ONE (05:45)
[2023-02-10] MEDS ORDERED: Sodium Chloride 100ML MINI-BAG PLUS 100 ML IV ONE (05:47)
[2023-02-10] MEDS: PIPERACILLIN/TAZOBACTAM 4.5 GM in Sodium Chloride 100ML MINI-BAG PLUS 100 ML IV SCH ×3 (05:59→21:32)
[2023-02-10 06:21] LABS: Hematocrit 28.2 % (35-47); Hemoglobin 7.6 g/dL (12.0-16.0); Mean Corpuscular Hemoglobin 17.8 pg (26-32); Mean Platelet Volume 9.4 fL (7.5-11.0); Platelet Count 272 x10^3/uL (150-450); Red Blood Count 4.27 x10^6/uL (4.1-5.4); Red Cell Distribution Width 19.3 % (11.5-14.0); White Blood Count 6.4 x10^3/uL (4.0-10.5)
[2023-02-10 06:43] LABS: ANION GAP 9.4 MEQ/L (5-15); BLOOD UREA NITROGEN 10 mg/dL (7-17); CHLORIDE 103 mmol/L (98-107); Calcium 7.9 mg/dL (8.4-10.2); Carbon Dioxide 28 mmol/L (22-30); Creatinine 1 0.38 mg/dL (0.52-1.04); EST GLOMERULAR FILTRATION RATE > 60.0 ML/MIN; Glucose 112 mg/dL (74-106); Potassium 3.7 mmol/L (3.5-5.1); SODIUM 137 mmol/L (137-145)
[2023-02-10] MEDS ORDERED: NON-FORMULARY ITEM (Omeprazole [Omeprazole] 40 MG Capsule.Dr) PO SCH (10:00)
[2023-02-10] MEDS ORDERED: ERTUGLIFLOZIN PIDOLATE 5 MG PO SCH (10:00)
[2023-02-10] MEDS ORDERED: NON-FORMULARY BULK ITEM PO SCH (10:00)
[2023-02-10] MEDS: ENOXAPARIN SODIUM SQ SCH (10:38)
[2023-02-10] MEDS: VANCOMYCIN 2 GRAM/400 ML BAG 2 GM/400 ML PIGGYBACK IV SCH ×2 (10:38→22:13)
[2023-02-10] MEDS: Toprol-Xl 25MG Tablets PO SCH ×3 (10:39→21:33)
[2023-02-10] MEDS: NORVASC 5 MG PO SCH (10:39)
[2023-02-10] MEDS: Protonix 40MG Tablet PO SCH (10:43)
[2023-02-10] MEDS ORDERED: MEDICATION INTERVENTION MC SCH (11:30)
[2023-02-10 13:35] LABS: BAND 1 % (0.0-2.0); Eosinophil 1 % (0.00-3.0); Lymphocytes 5 % (24-44); Monocyte 10 % (0.0-12.0); Neutrophils 83 % (36.0-66.0); Platelet Estimate NORMAL (NORMAL); Total Cells Counted 100
[2023-02-10 13:36] LABS: Microcytosis 2+
[2023-02-10 13:37] LABS: ANISOCYTOSIS 1+
[2023-02-10 13:38] LABS: Hypochromia 2+
[2023-02-10 13:39] LABS: Polychromasia 2+
[2023-02-11] MEDS: TYLENOL 325 MG PO PRN (04:56)
[2023-02-11] MEDS: PIPERACILLIN/TAZOBACTAM 4.5 GM in Sodium Chloride 100ML MINI-BAG PLUS 100 ML IV SCH ×3 (05:34→21:40)
--- NOTE | 2023-02-11 09:23 | PCM.NOTE ---
Date and Time: 02/11/23921 Subjective Assessment: no new complaints, didn't sleep well last night. Objective Exam General Appearance: obese Neurologic Exam: alert, oriented x 3, cooperative Respiratory Exam: normal breath sounds, lungs clear, No respiratory distress Cardiovascular Exam: regular rate/rhythm, normal heart sounds Gastrointestinal/Abdomen Exam: soft, No tenderness, No mass Extremity Exam: other (cellulitis teresa medial upper thighs, chronic xerotic changes and lymphedema present) OBJECTIVE DATA Vital Signs: Vital Signs - 24 hr Temp Pulse Resp BP Pulse Ox 02/11/23 07:52 96.4 F 93 H 19 124/57 94 L 02/11/23 03:53 97.3 F 95 H 20 113/57 98 02/10/23 23:40 97.3 F 97 H 24 114/58 99 02/10/23 19:28 97.2 F 104 H 20 121/59 96 02/10/23 16:00 97.2 F 98 H 19 109/53 97 02/10/23 12:00 97.1 F 94 H 19 112/55 97 Pain Assessment - Last Documented Pain Intensity 4 Pain Scale Used 0-10 Pain Scale Intake and Output: Intake & Output 02/08/23 02/09/23 02/10/23 02/11/23 11:59 11:59 11:59 11:59 Intake Total 840 1920 Output Total 1300 1800 Balance -460 120 Weight 228.9 kg Lab Results: Lab Results-Last 24 Hours 02/10/23 02/10/23 02/10/23 Range/Units 06:10 12:15 16:39 WBC 6.4 (4.0-10.5) x10^3/uL RBC 4.27 (4.1-5.4) x10^6/uL Hgb 7.6 L (12.0-16.0) g/dL Hct 28.2 L (35-47) % MCV 66.0 L (78-100) fL MCH 17.8 L (26-32) pg MCHC 27.0 L (32-36) g/dL RDW 19.3 H (11.5-14.0) % Plt Count 272 (150-450) x10^3/uL MPV 9.4 (7.5-11.0) fL Segmented Neutrophils 83 H (36.0-66.0) % Band Neutrophils 1 (0.0-2.0) % Lymphocytes (Manual) 5 L (24-44) % Monocytes (Manual) 10 (0.0-12.0) % Eosinophils (Manual) 1 (0.00-3.0) % Hypochromia 2+ Platelet Estimate NORMAL (NORMAL) RBC Morphology ABNORMAL Polychromasia 2+ Anisocytosis 1+ Microcytosis 2+ Smear Path Review Pending POC Glucometer 126 H 104 (74 to 106) mg/dL 02/10/23 02/11/23 Range/Units 21:10 07:31 WBC (4.0-10.5) x10^3/uL RBC (4.1-5.4) x10^6/uL Hgb (12.0-16.0) g/dL Hct (35-47) % MCV (78-100) fL MCH (26-32) pg MCHC (32-36) g/dL RDW (11.5-14.0) % Plt Count (150-450) x10^3/uL MPV (7.5-11.0) fL Segmented Neutrophils (36.0-66.0) % Band Neutrophils (0.0-2.0) % Lymphocytes (Manual) (24-44) % Monocytes (Manual) (0.0-12.0) % Eosinophils (Manual) (0.00-3.0) % Hypochromia Platelet Estimate (NORMAL) RBC Morphology Polychromasia Anisocytosis Microcytosis Smear Path Review POC Glucometer 127 H 117 H (74 to 106) mg/dL Radiology Exams: Radiology Procedures Category Date Time Status FOOT (2 VIEWS) Stat Exams 02/09/23 19:51 Completed Assessment/Plan (1) Cellulitis of lower extremity Current Visit: Yes Status: Acute Assessment & Plan: on vanc/zosyn, PT consult for wound care. will add mupirocin (2) Lymphedema Current Visit: Yes Status: Acute Code(s): I89.0 - LYMPHEDEMA, NOT ELSEWHERE CLASSIFIED (3) Type 2 diabetes mellitus Current Visit: Yes Status: Acute
[2023-02-11] MEDS ORDERED: TROUGH DRUG LEVELS IJ ONE (09:30)
[2023-02-11] MEDS ORDERED: Bactroban OINTMENT TP SCH (10:00)
[2023-02-11 10:08] LABS: ALKALINE PHOSPHATASE 52 U/L (38-126); ANION GAP 8.9 MEQ/L (5-15); BLOOD UREA NITROGEN 7 mg/dL (7-17); CHLORIDE 106 mmol/L (98-107); Calcium 7.8 mg/dL (8.4-10.2); Carbon Dioxide 26 mmol/L (22-30); Creatinine 1 0.43 mg/dL (0.52-1.04); EST GLOMERULAR FILTRATION RATE > 60.0 ML/MIN; Glucose 111 mg/dL (74-106); Hematocrit 28.6 % (35-47); Hemoglobin 7.6 g/dL (12.0-16.0); Mean Cell Volume 66.8 fL (78-100); Mean Corpuscular Hemoglobin 17.8 pg (26-32); Mean Corpuscular Hgb Concent. 26.6 g/dL (32-36); Mean Platelet Volume 9.3 fL (7.5-11.0); Platelet Count 298 x10^3/uL (150-450); Potassium 3.8 mmol/L (3.5-5.1); Red Blood Count 4.28 x10^6/uL (4.1-5.4); Red Cell Distribution Width 19.6 % (11.5-14.0); SGOT/AST 23 U/L (14-36); SGPT/ALT 24 U/L (0-35); SODIUM 137 mmol/L (137-145); Total Protein 7.8 g/dL (6.3-8.2); White Blood Count 5.2 x10^3/uL (4.0-10.5)
[2023-02-11] MEDS: Protonix 40MG Tablet PO SCH (10:51)
[2023-02-11] MEDS: ENOXAPARIN SODIUM SQ SCH (10:52)
[2023-02-11] MEDS: VANCOMYCIN 2 GRAM/400 ML BAG 2 GM/400 ML PIGGYBACK IV SCH ×2 (10:52→21:40)
[2023-02-11] MEDS: Toprol-Xl 25MG Tablets PO SCH ×3 (10:52→21:40)
[2023-02-11] MEDS: NORVASC 5 MG PO SCH (10:52)
[2023-02-11] MEDS: Bactroban OINTMENT TP SCH ×2 (12:29→21:38)
[2023-02-11 14:11] LABS: Lymphocytes 20 % (24-44); Monocyte 3 % (0.0-12.0); Neutrophils 77 % (36.0-66.0); Platelet Estimate NORMAL (NORMAL); Total Cells Counted 100
[2023-02-11 14:12] LABS: Hypochromia 2+; Microcytosis 2+
[2023-02-11 14:13] LABS: Polychromasia 2+
[2023-02-12 04:53] LABS: Hematocrit 30.4 % (35-47); Mean Cell Volume 66.5 fL (78-100); Mean Corpuscular Hemoglobin 17.5 pg (26-32); Mean Corpuscular Hgb Concent. 26.3 g/dL (32-36); Platelet Count 239 x10^3/uL (150-450); Red Blood Count 4.57 x10^6/uL (4.1-5.4); Red Cell Distribution Width 19.9 % (11.5-14.0)
[2023-02-12 05:05] LABS: ANION GAP 13.5 MEQ/L (5-15); BLOOD UREA NITROGEN 6 mg/dL (7-17); CHLORIDE 105 mmol/L (98-107); Carbon Dioxide 23 mmol/L (22-30); Creatinine 1 0.42 mg/dL (0.52-1.04); EST GLOMERULAR FILTRATION RATE > 60.0 ML/MIN; Glucose 113 mg/dL (74-106); Potassium 4.1 mmol/L (3.5-5.1); SODIUM 138 mmol/L (137-145)
[2023-02-12] MEDS: PIPERACILLIN/TAZOBACTAM 4.5 GM in Sodium Chloride 100ML MINI-BAG PLUS 100 ML IV SCH ×3 (06:16→21:29)
[2023-02-12 06:37] LABS: ANISOCYTOSIS 1+; Eosinophil 4 % (0.00-3.0); Lymphocytes 20 % (24-44); Monocyte 5 % (0.0-12.0); Neutrophils 71 % (36.0-66.0); Platelet Estimate NORMAL (NORMAL); Total Cells Counted 100
--- NOTE | 2023-02-12 08:12 | PCM.NOTE ---
Date and Time: 02/12/23810 Subjective Assessment: legs are doing better, erythema improved. overall she is feeling better. Objective Exam General Appearance: obese Neurologic Exam: alert, oriented x 3 Skin Exam: other (improved erythema to medial upper legs, chronic lymphedema changes) Respiratory Exam: normal breath sounds, lungs clear, No respiratory distress Cardiovascular Exam: regular rate/rhythm, normal heart sounds Gastrointestinal/Abdomen Exam: soft, No tenderness, No mass OBJECTIVE DATA Vital Signs: Vital Signs - 24 hr Temp Pulse Resp BP Pulse Ox 02/12/23 07:20 97.8 F 88 16 115/60 97 02/12/23 03:54 97.4 F 76 24 119/58 98 02/11/23 23:39 97.6 F 72 22 127/59 98 02/11/23 19:39 97.3 F 91 H 24 122/58 96 02/11/23 16:00 96.6 F 95 H 19 114/60 97 02/11/23 12:00 97.1 F 97 H 19 108/53 94 L Pain Assessment - Last Documented Pain Intensity 3 Pain Scale Used 0-10 Pain Scale Intake and Output: Intake & Output 02/09/23 02/10/23 02/11/23 02/12/23 11:59 11:59 11:59 11:59 Intake Total 840 1920 3069 Output Total 1300 1800 Balance -725 514 3761 Weight 228.9 kg Lab Results: Lab Results-Last 24 Hours 02/11/23 02/11/23 02/11/23 Range/Units 09:45 09:45 09:45 WBC 5.2 (4.0-10.5) x10^3/uL RBC 4.28 (4.1-5.4) x10^6/uL Hgb 7.6 L (12.0-16.0) g/dL Hct 28.6 L (35-47) % MCV 66.8 L (78-100) fL MCH 17.8 L (26-32) pg MCHC 26.6 L (32-36) g/dL RDW 19.6 H (11.5-14.0) % Plt Count 298 (150-450) x10^3/uL MPV 9.3 (7.5-11.0) fL Segmented Neutrophils 77 H (36.0-66.0) % Lymphocytes (Manual) 20 L (24-44) % Monocytes (Manual) 3 (0.0-12.0) % Eosinophils (Manual) (0.00-3.0) % Hypochromia 2+ Platelet Estimate NORMAL (NORMAL) RBC Morphology ABNORMAL Polychromasia 2+ Anisocytosis Microcytosis 2+ Sodium 137 (137-145) mmol/L Potassium 3.8 (3.5-5.1) mmol/L Chloride 106 (98-107) mmol/L Carbon Dioxide 26 (22-30) mmol/L Anion Gap 8.9 (5-15) MEQ/L BUN 7 (7-17) mg/dL Creatinine 0.43 L (0.52-1.04) mg/dL Estimated GFR > 60.0 ML/MIN Glucose 111 H (74-106) mg/dL POC Glucometer (74 to 106) mg/dL Calcium 7.8 L (8.4-10.2) mg/dL Total Bilirubin 0.50 (0.2-1.3) mg/dL AST 23 (14-36) U/L ALT 24 (0-35) U/L Alkaline Phosphatase 52 (38-126) U/L Serum Total Protein 7.8 (6.3-8.2) g/dL Albumin 3.0 L (3.5-5.0) g/dL Vancomycin Trough 7.73 L (10-20) ug/mL 02/11/23 02/11/23 02/11/23 Range/Units 11:59 16:25 21:02 WBC (4.0-10.5) x10^3/uL RBC (4.1-5.4) x10^6/uL Hgb (12.0-16.0) g/dL Hct (35-47) % MCV (78-100) fL MCH (26-32) pg MCHC (32-36) g/dL RDW (11.5-14.0) % Plt Count (150-450) x10^3/uL MPV (7.5-11.0) fL Segmented Neutrophils (36.0-66.0) % Lymphocytes (Manual) (24-44) % Monocytes (Manual) (0.0-12.0) % Eosinophils (Manual) (0.00-3.0) % Hypochromia Platelet Estimate (NORMAL) RBC Morphology Polychromasia Anisocytosis Microcytosis Sodium (137-145) mmol/L Potassium (3.5-5.1) mmol/L Chloride (98-107) mmol/L Carbon Dioxide (22-30) mmol/L Anion Gap (5-15) MEQ/L BUN (7-17) mg/dL Creatinine (0.52-1.04) mg/dL Estimated GFR ML/MIN Glucose (74-106) mg/dL POC Glucometer 150 H 91 146 H (74 to 106) mg/dL Calcium (8.4-10.2) mg/dL Total Bilirubin (0.2-1.3) mg/dL AST (14-36) U/L ALT (0-35) U/L Alkaline Phosphatase (38-126) U/L Serum Total Protein (6.3-8.2) g/dL Albumin (3.5-5.0) g/dL Vancomycin Trough (10-20) ug/mL 02/12/23 02/12/23 02/12/23 Range/Units 04:24 04:24 07:17 WBC 6.0 (4.0-10.5) x10^3/uL RBC 4.57 (4.1-5.4) x10^6/uL Hgb 8.0 L (12.0-16.0) g/dL Hct 30.4 L (35-47) % MCV 66.5 L (78-100) fL MCH 17.5 L (26-32) pg MCHC 26.3 L (32-36) g/dL RDW 19.9 H (11.5-14.0) % Plt Count 239 (150-450) x10^3/uL MPV 10.0 (7.5-11.0) fL Segmented Neutrophils 71 H (36.0-66.0) % Lymphocytes (Manual) 20 L (24-44) % Monocytes (Manual) 5 (0.0-12.0) % Eosinophils (Manual) 4 H (0.00-3.0) % Hypochromia Platelet Estimate NORMAL (NORMAL) RBC Morphology ABNORMAL Polychromasia Anisocytosis 1+ Microcytosis Sodium 138 (137-145) mmol/L Potassium 4.1 (3.5-5.1) mmol/L Chloride 105 (98-107) mmol/L Carbon Dioxide 23 (22-30) mmol/L Anion Gap 13.5 (5-15) MEQ/L BUN 6 L (7-17) mg/dL Creatinine 0.42 L (0.52-1.04) mg/dL Estimated GFR > 60.0 ML/MIN Glucose 113 H (74-106) mg/dL POC Glucometer 112 H (74 to 106) mg/dL Calcium 8.0 L (8.4-10.2) mg/dL Total Bilirubin (0.2-1.3) mg/dL AST (14-36) U/L ALT (0-35) U/L Alkaline Phosphatase (38-126) U/L Serum Total Protein (6.3-8.2) g/dL Albumin (3.5-5.0) g/dL Vancomycin Trough (10-20) ug/mL Assessment/Plan (1) Cellulitis of lower extremity Current Visit: Yes Status: Acute Assessment & Plan: improved, patient has lymphedema associated with morbid obesity, will need outpatient wound care. if we can arrange for transportation for wound treatment she can go home on po abx. (2) Lymphedema Current Visit: Yes Status: Acute Code(s): I89.0 - LYMPHEDEMA, NOT ELSEWHERE CLASSIFIED (3) Type 2 diabetes mellitus Current Visit: Yes Status: Acute
[2023-02-12] MEDS: Bactroban OINTMENT TP SCH ×2 (09:18→21:30)
[2023-02-12] MEDS: ENOXAPARIN SODIUM SQ SCH (09:20)
[2023-02-12] MEDS: Protonix 40MG Tablet PO SCH (09:20)
[2023-02-12] MEDS: Toprol-Xl 25MG Tablets PO SCH ×3 (09:20→21:29)
[2023-02-12] MEDS: NORVASC 5 MG PO SCH (09:20)
[2023-02-12] MEDS: VANCOMYCIN 1.5 GRAM/300 ML BAG 1.5 GM/300 ML PIGGYBACK IV SCH ×2 (09:21→17:13)
[2023-02-12] MEDS ORDERED: NYSTOP POWDER 15 GM TP SCH (22:00)
[2023-02-13] MEDS: VANCOMYCIN 1.5 GRAM/300 ML BAG 1.5 GM/300 ML PIGGYBACK IV SCH (01:26)
[2023-02-13 05:07] LABS: Absolute Neutrophil Ct (ANC) 4.01 x10^3/uL (1.4-6.9); BASOPHIL % 0.5 % (0.0-0.4); Basophil (Absolute #) 0.03 x10^3/uL (0-0.4); Eosinophil % 4.8 % (0.00-5.0); Eosinophil (Absolute #) 0.28 x10^3/uL (0-0.5); Hematocrit 32.9 % (35-47); Hemoglobin 8.9 g/dL (12.0-16.0); IMMATURE GRAN # 0.02 x10^3u/L (0.00-0.03); IMMATURE GRAN % 0.3 % (0.00-0.4); Lymphocyte (Absolute #) 1.17 x10^3/uL (1.0-4.6); Mean Cell Volume 66.1 fL (78-100); Mean Corpuscular Hemoglobin 17.9 pg (26-32); Mean Corpuscular Hgb Concent. 27.1 g/dL (32-36); Mean Platelet Volume 9.3 fL (7.5-11.0); Monocyte (Absolute #) 0.33 x10^3/uL (0.0-1.3); Monocytes % 5.7 % (0.0-12.0); Neutrophil % 68.7 % (36.0-66.0); Platelet Count 321 x10^3/uL (150-450); Red Blood Count 4.98 x10^6/uL (4.1-5.4); Red Cell Distribution Width 20.2 % (11.5-14.0); White Blood Count 5.8 x10^3/uL (4.0-10.5)
[2023-02-13 05:22] LABS: ANION GAP 12.5 MEQ/L (5-15); BLOOD UREA NITROGEN 6 mg/dL (7-17); CHLORIDE 103 mmol/L (98-107); Calcium 8.3 mg/dL (8.4-10.2); Carbon Dioxide 26 mmol/L (22-30); Creatinine 1 0.38 mg/dL (0.52-1.04); EST GLOMERULAR FILTRATION RATE > 60.0 ML/MIN; Glucose 110 mg/dL (74-106); SODIUM 138 mmol/L (137-145)
[2023-02-13 05:25] LABS: Slide Review 1 YES
[2023-02-13 06:49] VITALS: BP 150/55; PULSE 88; O2SAT 97
[2023-02-13] MEDS: NORVASC 5 MG PO SCH (09:39)
[2023-02-13] MEDS: Protonix 40MG Tablet PO SCH (09:40)
[2023-02-13] MEDS: Toprol-Xl 25MG Tablets PO SCH (09:40)
[2023-02-13] MEDS: ENOXAPARIN SODIUM SQ SCH (09:40)
--- NOTE | 2023-02-13 09:49 | PCM.DS ---
Discharge Summary Date of Admission: 02/09/23 23:01 Admitting Physician: OSMANY SPENCER MD Primary Care Provider: ALF PRITCHETT Allergies Allergies latex Allergy (Mild, Verified 02/09/23 23:20) Rash promethazine [From Phenergan] Adverse Reaction (Verified 02/09/23 23:20) Not taken before. Reported multiple family members having severe reactions to phernergan. Hospital Summary - Hospital Course Hospital Course: Pt is a 37 yo female with hx htn, DMII, and morbid obesity who was admitted through ER with cellulitis. She's been treated with vancomycin and zosyn. Feeling much better, legs with decreased pain. [facility] po fine. Ready to d/c to home. DOes not qualify for home health and has trouble with transportation for wound care. Will send pt home on po augmentin. F/u with PCP in 1 wk (Becki Pritchett). - Vitals & Intake/Output Vital Signs: Vital Signs Temperature 97.7 F 02/13/23 06:49 Pulse Rate 88 02/13/23 06:49 Respiratory Rate 20 02/13/23 06:49 Blood Pressure 150/55 02/13/23 06:49 O2 Sat by Pulse Oximetry 97 02/13/23 06:49 Intake & Output: Intake & Output 02/10/23 02/11/23 02/12/23 02/13/23 11:59 11:59 11:59 11:59 Intake Total 840 1920 3309 3111 Output Total 1300 1800 Balance -256 608 3837 3111 Weight 228.9 kg - Lab Result Diagrams: 02/13/23 04:40 02/13/23 04:40 Lab Results-Last 24 Hrs: Lab Results-Last 24 Hours 02/12/23 02/12/23 02/12/23 Range/Units 11:16 16:28 21:19 WBC (4.0-10.5) x10^3/uL RBC (4.1-5.4) x10^6/uL Hgb (12.0-16.0) g/dL Hct (35-47) % MCV (78-100) fL MCH (26-32) pg MCHC (32-36) g/dL RDW (11.5-14.0) % Plt Count (150-450) x10^3/uL MPV (7.5-11.0) fL Gran % (36.0-66.0) % Immature Gran % (Auto) (0.00-0.4) % Nucleat RBC Rel Count (0.00-0.1) % Eos # (Auto) (0-0.5) x10^3/uL Immature Gran # (Auto) (0.00-0.03) x10^3u/L Absolute Lymphs (auto) (1.0-4.6) x10^3/uL Absolute Monos (auto) (0.0-1.3) x10^3/uL Absolute Nucleated RBC (0.00-0.01) x10^3u/L Lymphocytes % (24.0-44.0) % Monocytes % (0.0-12.0) % Eosinophils % (0.00-5.0) % Basophils % (0.0-0.4) % Absolute Granulocytes (1.4-6.9) x10^3/uL Basophils # (0-0.4) x10^3/uL Sodium (137-145) mmol/L Potassium (3.5-5.1) mmol/L Chloride (98-107) mmol/L Carbon Dioxide (22-30) mmol/L Anion Gap (5-15) MEQ/L BUN (7-17) mg/dL Creatinine (0.52-1.04) mg/dL Estimated GFR ML/MIN Glucose (74-106) mg/dL POC Glucometer 135 H 120 H 134 H (74 to 106) mg/dL Calcium (8.4-10.2) mg/dL Slides for Path Review 02/13/23 02/13/23 02/13/23 Range/Units 04:40 04:40 06:36 WBC 5.8 (4.0-10.5) x10^3/uL RBC 4.98 (4.1-5.4) x10^6/uL Hgb 8.9 L (12.0-16.0) g/dL Hct 32.9 L (35-47) % MCV 66.1 L (78-100) fL MCH 17.9 L (26-32) pg MCHC 27.1 L (32-36) g/dL RDW 20.2 H (11.5-14.0) % Plt Count 321 D (150-450) x10^3/uL MPV 9.3 (7.5-11.0) fL Gran % 68.7 H (36.0-66.0) % Immature Gran % (Auto) 0.3 (0.00-0.4) % Nucleat RBC Rel Count 0.0 (0.00-0.1) % Eos # (Auto) 0.28 (0-0.5) x10^3/uL Immature Gran # (Auto) 0.02 (0.00-0.03) x10^3u/L Absolute Lymphs (auto) 1.17 (1.0-4.6) x10^3/uL Absolute Monos (auto) 0.33 (0.0-1.3) x10^3/uL Absolute Nucleated RBC 0.00 (0.00-0.01) x10^3u/L Lymphocytes % 20.0 L (24.0-44.0) % Monocytes % 5.7 (0.0-12.0) % Eosinophils % 4.8 (0.00-5.0) % Basophils % 0.5 (0.0-0.4) % Absolute Granulocytes 4.01 (1.4-6.9) x10^3/uL Basophils # 0.03 (0-0.4) x10^3/uL Sodium 138 (137-145) mmol/L Potassium 4.0 (3.5-5.1) mmol/L Chloride 103 (98-107) mmol/L Carbon Dioxide 26 (22-30) mmol/L Anion Gap 12.5 (5-15) MEQ/L BUN 6 L (7-17) mg/dL Creatinine 0.38 L (0.52-1.04) mg/dL Estimated GFR > 60.0 ML/MIN Glucose 110 H (74-106) mg/dL POC Glucometer 102 (74 to 106) mg/dL Calcium 8.3 L (8.4-10.2) mg/dL Slides for Path Review YES Micro Results-Entire Visit: Microbiology 02/10/23 04:00 Wound Culture - Final Leg - Left Lower Proteus Mirabilis 02/09/23 20:10 Blood Culture Gram Stain - Final Blood Not Reportable Blood Culture - Preliminary NO GROWTH TO DATE 02/09/23 20:10 Blood Culture - Preliminary Blood NO GROWTH TO DATE Accuchecks Date 02/13/23 Date 02/12/23 Date 02/12/23 Time 06:49 Time 17:04 Time 11:27 - Procedures and Test Procedures and Tests throughout Hospitalization: Therapy Orders & Screens 02/10/23 00:41 OT Screen per Nursing Assess ONCE Comment: Protocol Order Physician Instructions: Greater than 3 points order OT Admission Screening Reason For Exam: Triggered on Admission Diagnosis: cellultis Open Wound/Cellutlitis/Pressure Ulcers: Yes Acute Fx/ORIF/Change in wt bearing status: No Severe MUSCULOSKELETAL pain: No ADL Dysfunction: Yes Acute CVA w/Hemiparesis/Hemiplegia: No Decreased Functional Mobility/Strength: Yes Sprain/Strain: No Acute Post-op Mobility Dysfunction: No Total Points: 9 PT Screen per Nursing Assess ONCE Comment: Protocol Order Physician Instructions: Greater than 3 points order PT Admission Screenin Reason For Exam: Triggered on Admission Diagnosis: cellultis Open Wound/Cellutlitis/Pressure Ulcers: Yes Acute Fx/ORIF/Change in wt bearing status: No Severe MUSCULOSKELETAL pain: No ADL Dysfunction: Yes Acute CVA w/Hemiparesis/Hemiplegia: No Decreased Functional Mobility/Strength: Yes Sprain/Strain: No Acute Post-op Mobility Dysfunction: No Total Points: 9 02/10/23 07:53 PT Eval & Treat (MD Order) ONCE Reason for Eval:: bilat leg wounds; cellulitis Diagnosis: cellultis Discharge Exam General Appearance: no apparent distress, alert Neurologic Exam: oriented x 3, cooperative, normal mood/affect Eye Exam: eyes nml inspection Ears, Nose, Throat Exam: moist mucous membranes Neck Exam: normal inspection Respiratory Exam: normal breath sounds, lungs clear, No crackles/rales, No rhonchi, No wheezing Cardiovascular Exam: regular rate/rhythm, normal heart sounds, No murmur Gastrointestinal/Abdomen Exam: soft, normal bowel sounds, No tenderness, No distention, No mass, No guarding, No rebound Back Exam: normal inspection, No rash Extremity Exam: contusions, other (bilat proximal medial thighs with chronic changes and superimposed scabbing and mild crusting, no active exudates, very mild erythema) Skin Exam: warm, dry Final Diagnosis/Problem List - Final Discharge Diagnosis/Problem (1) Cellulitis of lower extremity Current Visit: Yes Status: Acute Assessment & Plan: Did well on zosyn and vancomycin - culture pos for Proteus mirabilis susceptible to zosyn and to augmentin - will send pt home on augmentint with bactroban topical as well. Wound change instructions given. F/u with Dr. Suh or Koby Pritchett in 1 week. (2) Lymphedema Current Visit: Yes Status: Chronic Code(s): I89.0 - LYMPHEDEMA, NOT ELSEWHERE CLASSIFIED (3) Type 2 diabetes mellitus Current Visit: Yes Status: Acute - Discharge Disposition: Home, Self-Care Condition: Good Prescriptions: New Lactobacillus Acidophilus [Acidophilus TABLET] 1 tab PO BID #20 tablet Amox Tr/Potass Clav. 875 mg [Augmentin 875-125 Tablet] 875 mg PO Q12H #20 tablet Mupirocin [Bactroban OINTMENT] 1 gm TP BID 7 Days #1 packet Nystatin Powder 15 gm [Nystop Powder 15 gm] 1 g TP BID #1 packet Continue Potassium Chloride Tab* [Klor Con] 10 meq PO DAILY Furosemide 20 mg [Lasix 20 mg] 40 mg PO DAILY Amlodipine Besylate 5 mg [Norvasc 5 mg] 5 mg PO DAILY Metoprolol Succinate [Toprol Xl] 25 mg PO TID Ertugliflozin Pidolate [Steglatro] 5 mg PO DAILY Ergocalciferol (Vitamin D2) [Vitamin D2] 1 cap PO 2XW Ferrous Sulfate [Ferosul] 325 mg PO DAILY Omeprazole 40 mg PO DAILY Additional Instructions: WASH YOUR LEGS DAILY WITH HEBICLEANSE, COVER WITH ABD PAD THEN SECURE WITH KERLEX. APPLY YOUR JUXTALITE SOCKS AFTER. [facility] IS SENDING DRESSING SUPPLIES TO YOUR HOME. FOR ANY QUESTIONS/CONCERNS YOU CAN REACH SATIN AT [phone] A REFERRAL TO [facility] WAS SENT. YOU CAN CONTACT THEM AT [phone] EXTENSION [id number] Follow up with: ALF PRITCHETT NP [Primary Care Provider] - 1 Week (you have an appointment with Becki Pritchett on February 20 at 10:00 a.m.)
[2023-02-13] MEDS ORDERED: NYSTOP POWDER 15 GM TP SCH (10:00)
[2023-02-13] MEDS ORDERED: Augmentin 875-125 Tablet PO SCH (10:00)
== END 2023-02-13 12:20 | disposition home or self-care (01) ==
LOC: ED 18:00 → MED SURG 23:01
PROVIDERS: ADMIT Internal Medicine Critical Care Medicine; ATTEND Family Medicine
DX: L03.116 Cellulitis of left lower limb (principal); L03.115 Cellulitis of right lower limb; E11.9 Type 2 diabetes mellitus without complications; Z79.899 Other long term (current) drug therapy; I89.0 Lymphedema, not elsewhere classified; I10 Essential (primary) hypertension
CPT/HCPCS: 36000; 36415; 73620; 80048; 80053; 80202; 81001; 82947; 83605; 85025; 85652; 87040; 87070; 87077; 87186; 93041; 94760; 96365; 96367; 96374; 97161; 99285; G0378; J1650; J1885; J2270; J2543; A9270-GY; J3370

== ENCOUNTER 2024-01-17 18:26 | Observation (INO) | payer OTHER ==
--- NOTE | 2024-01-17 18:50 | ERPHSYRPT ---
- History of Present Illness Time Seen by Provider: 01/17/24 18:42 Source: patient Exam Limitations: no limitations Physician History: This is a morbidly obese 28-year-old white female patient of nurse practitioner Shreyas who has a weight over 500 pounds and has obvious cellulitis of her inner thighs bilaterally. She has not been febrile. However, she has been septic from cellulitis in the past. She was seen by her home health provider today and it was recommended that she come in to be evaluated in the emergency department for intravenous antibiotics and workup. The patient has had this issue at least since October 2023 and was being treated as an outpatient with oral antibiotics intermittently including doxycycline and Bactrim. Currently, her vital signs do not support a diagnosis of sepsis but her physical exam is significant for bilateral thigh cellulitis that is not responding to outpatient, oral antibiotic management. Patient has a history of hypertension and gastroesophageal reflux disease. Timing/Duration: other (Chronic and persistent) Quality: painful Severity: mild Location: extremities (Bilateral inner thighs) Associated Symptoms: blisters, change in skin texture Allergies/Adverse Reactions: latex Allergy (Mild, Verified 01/17/24 18:37) Rash promethazine [From Phenergan] Adverse Reaction (Verified 01/17/24 18:37) Not taken before. Reported multiple family members having severe reactions to phernergan. Home Medications: Amlodipine Besylate 5 mg [Norvasc 5 mg] 5 mg PO DAILY 04/08/20 [History] Metoprolol Succinate [Toprol Xl] 25 mg PO TID 09/19/20 [History] Ertugliflozin Pidolate [Steglatro] 5 mg PO DAILY 02/09/23 [History] Omeprazole 40 mg PO DAILY 02/09/23 [History] Lactobacillus Acidophilus [Acidophilus TABLET] 1 tab PO DAILY 01/17/24 [History] Hx Tetanus, Diphtheria Vaccination/Date Given: Yes Hx Influenza Vaccination/Date Given: No Hx Pneumococcal Vaccination/Date Given: No Travel Risk - International Travel Have you traveled outside of the country in past 3 weeks: No - Emerging Infectious Disease Are you exhibiting symptoms associated with any current EIDs: No - Review of Systems Constitutional: No Symptoms Eyes: No Symptoms Ears, Nose, & Throat: No Symptoms Respiratory: No Symptoms Cardiac: No Symptoms Abdominal/Gastrointestinal: No Symptoms Genitourinary Symptoms: No Symptoms Musculoskeletal: No Symptoms Skin: Cellulitis (Bilateral inner thighs) Neurological: No Symptoms Psychological: No Symptoms Endocrine: No Symptoms Hematologic/Lymphatic: No Symptoms Immunological/Allergic: No Symptoms All Other Systems: Reviewed and Negative - Past Medical History Pertinent Past Medical History: Yes Neurological History: Migraines, Peripheral Neuropathy ENT History: No Pertinent History Cardiac History: Hypertension Respiratory History: No Pertinent History Endocrine Medical History: Diabetes Type II Musculoskeletal History: Fibromyalgia, Osteoarthritis GI Medical History: GERD History: No Pertinent History Psycho-Social History: Anxiety, Bipolar, Depression, Panic Disorder Female Reproductive Disorders: No Pertinent History Other Medical History: 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 (RIGHT WORSE THAN LEFT); FIBROMYALGIA, HAS AN INHALER FOR HER LUNGS HER WEIGHT PUTS MORE STRESS ON HER LUNGS, ETC.; BILATERAL CTS (RIGHT WORSE THAN LEFT), BLE ULCERS TO POSTERIOR LEGS - Past Surgical History Past Surgical History: Yes Neuro Surgical History: No Pertinent History Cardiac: No Pertinent History Respiratory: No Pertinent History Gastrointestinal: No Pertinent History Genitourinary: No Pertinent History Musculoskeletal: No Pertinent History Female Surgical History: No Pertinent History, Section Other Surgical History: T&A - Social History Smoking Status: Former smoker How long have you smoked: 2 yr Exposure to second hand smoke: Yes Drug Use: none Patient Lives Alone: No - Nursing Vital Signs Nursing Vital Signs: Initial Vital Signs Temperature 98.1 F 01/17/24 18:39 Pulse Rate 93 H 01/17/24 18:39 Respiratory Rate 20 01/17/24 18:39 Blood Pressure 159/83 01/17/24 18:39 O2 Sat by Pulse Oximetry 100 01/17/24 18:39 Pain Scale Pain Intensity 5 - Physical Exam General Appearance: no apparent distress, alert, obese Eye Exam: PERRL/EOMI, eyes nml inspection Ears, Nose, Throat Exam: normal ENT inspection, moist mucous membranes Neck Exam: normal inspection, non-tender, supple, full range of motion Respiratory Exam: airway intact, No chest tenderness, No respiratory distress Gastrointestinal/Abdomen Exam: other (Stream the large pannus), No tenderness Pelvic Exam: not done Rectal Exam: not done Back Exam: normal inspection, normal range of motion, No CVA tenderness, No vertebral tenderness Extremity Exam: inflammation (Cellulitis bilateral inner thighs), tenderness (Mild tenderness in the area of cellulitis bilateral inner thighs) Neurologic Exam: alert, oriented x 3, cooperative, sterile process coordinator II-XII nml as tested, normal mood/affect Skin Exam: other (Cellulitissee above extremity exam section) Lymphatic Exam: No adenopathy SpO2 Interpretation: normal O2 Delivery: Room Air - Course Nursing assessment & vital signs reviewed: Yes Ordered Tests: Active Orders 24 hr Category Date Time Status IV Insertion STAT Care 01/17/24 19:02 Active Pulse Oximetry (ED) STAT Care 01/17/24 19:02 Active ACO SDOH Referral ONCE Cons 01/17/24 18:57 Active BLOOD CULTURE Stat Lab 01/17/24 19:45 Received CBC W DIFF Stat Lab 01/17/24 19:00 Completed CMP Stat Lab 01/17/24 19:00 Completed Lactic Acid Stat Lab 01/17/24 19:02 Completed Medication Summary Generic Name Dose Route Start Last Admin Trade Name Freq PRN Reason Stop Dose Admin Sodium Chloride 1,000 mls @ 50 mls/hr 01/17/24 19:15 01/17/24 19:48 Sodium Chloride 0.9% 1000 Ml IV 02/16/24 19:14 50 mls/hr .Q20H ANDRES Administration Discontinued Medications Generic Name Dose Route Start Last Admin Trade Name Freq PRN Reason Stop Dose Admin Clindamycin HCl/Dextrose 600 mg in 50 mls @ 100 mls/hr 01/17/24 19:03 01/17/24 19:48 Clindamycin-D5w 600 Mg/50 Ml IV 01/17/24 19:32 100 mls/hr STAT STA 100 mls/hr Administration Clindamycin HCl/Dextrose Confirm 01/17/24 19:47 Clindamycin-D5w 600 Mg/50 Ml Administered 01/17/24 19:48 Dose 600 mg in 50 mls @ ud IV .K-MED ONE Lab/Rad Data: Laboratory Result Diagrams 01/17/24 19:00 01/17/24 19:00 Laboratory Results 01/17/24 01/17/24 01/17/24 Range/Units 19:02 19:00 19:00 WBC 6.8 (4.0-10.5) x10^3/uL RBC 5.18 (4.1-5.4) x10^6/uL Hgb 10.9 L (12.0-16.0) g/dL Hct 37.8 (35-47) % MCV 73.0 L (78-100) fL MCH 21.0 L (26-32) pg MCHC 28.8 L (32-36) g/dL RDW 16.6 H (11.5-14.0) % Plt Count 322 (150-450) x10^3/uL MPV 10.5 (7.5-11.0) fL Gran % 64.9 (36.0-66.0) % Immature Gran % (Auto) 0.4 (0.00-0.4) % Nucleat RBC Rel Count 0.0 (0.00-0.1) % Eos # (Auto) 0.26 (0-0.5) x10^3/uL Immature Gran # (Auto) 0.03 (0.00-0.03) x10^3u/L Absolute Lymphs (auto) 1.65 (1.0-4.6) x10^3/uL Absolute Monos (auto) 0.42 (0.0-1.3) x10^3/uL Absolute Nucleated RBC 0.00 (0.00-0.01) x10^3u/L Lymphocytes % 24.2 (24.0-44.0) % Monocytes % 6.1 (0.0-12.0) % Eosinophils % 3.8 (0.00-5.0) % Basophils % 0.6 (0.0-0.4) % Absolute Granulocytes 4.43 (1.4-6.9) x10^3/uL Basophils # 0.04 (0-0.4) x10^3/uL Sodium 136 (135-145) mmol/L Potassium 4.5 (3.5-5.1) mmol/L Chloride 104 (98-107) mmol/L Carbon Dioxide 26 (22-30) mmol/L Anion Gap 11.3 (5-15) MEQ/L BUN 10 (7-17) mg/dL Creatinine 0.55 (0.52-1.04) mg/dL Estimated GFR 127.2 ML/MIN Glucose 103 (74-106) mg/dL Lactic Acid 2.0 (0.4-2.0) Calcium 9.2 (8.4-10.2) mg/dL Total Bilirubin 0.70 (0.2-1.3) mg/dL AST 54 H (14-36) U/L ALT 42 H (0-35) U/L Alkaline Phosphatase 52 (38-126) U/L Serum Total Protein 10.0 H (6.3-8.2) g/dL Albumin 3.9 (3.5-5.0) g/dL - Progress Progress: unchanged Progress Note: 01/17/24 18:59 My decision making and the assignment of high complexity to this patient's medical issue is based on review of the patient's past medical history, review of the patient's medication list, review of patient drug allergy list, history present illness and physical findings on examination. Workup in this patient includes placement of intravenous line, CBC, CMP, lactic acid level, blood cultures, infusion of intravenous antibiotics and likely placement of this patient in observation pending the outcome of the workup results. 01/17/24 19:01 Differential diagnosis includes sepsis, cellulitis, failed outpatient oral antibiotic therapy 01/17/24 20:02 I reviewed the patient's laboratory data over results. Patient laboratory results do not show sepsis. I spoke with and reviewed with Dr. Monge, our telehospitalist, the patient history, the chief complaint, the workup results in this patient. Patient failed outpatient oral antibiotic therapy and we are placing this patient in observation with intravenous antibiotics to include Zosyn intravenously. Counseled pt/family regarding: lab results, diagnosis Medical Desision Making - Independent Historian Additional History obtained from: Spouse - Diagnostic Testing Diagnostic test were ordered, analyzed, and reviewed by me: Yes - Risk of complications The pt has a high risk of morbidity or mortality based on: Decision regarding hospitilization or escalation of hosp level of care - Departure Departure Disposition: Observation Clinical Impression: Cellulitis Condition: Stable Critical Care Time: No Referrals: ALF VELEZ NP [Primary Care Provider] - Follow up/PCP as directed
[2024-01-17 19:29] LABS: Absolute Neutrophil Ct (ANC) 4.43 x10^3/uL (1.4-6.9); BASOPHIL % 0.6 % (0.0-0.4); Basophil (Absolute #) 0.04 x10^3/uL (0-0.4); Eosinophil % 3.8 % (0.00-5.0); Eosinophil (Absolute #) 0.26 x10^3/uL (0-0.5); Hematocrit 37.8 % (35-47); Hemoglobin 10.9 g/dL (12.0-16.0); IMMATURE GRAN # 0.03 x10^3u/L (0.00-0.03); IMMATURE GRAN % 0.4 % (0.00-0.4); Lymphocyte (Absolute #) 1.65 x10^3/uL (1.0-4.6); Lymphocytes % 24.2 % (24.0-44.0); Mean Corpuscular Hgb Concent. 28.8 g/dL (32-36); Mean Platelet Volume 10.5 fL (7.5-11.0); Monocyte (Absolute #) 0.42 x10^3/uL (0.0-1.3); Monocytes % 6.1 % (0.0-12.0); Neutrophil % 64.9 % (36.0-66.0); Platelet Count 322 x10^3/uL (150-450); Red Blood Count 5.18 x10^6/uL (4.1-5.4); Red Cell Distribution Width 16.6 % (11.5-14.0); White Blood Count 6.8 x10^3/uL (4.0-10.5)
[2024-01-17 19:39] LABS: ALBUMIN 3.9 g/dL (3.5-5.0); ANION GAP 11.3 MEQ/L (5-15); BILIRUBIN,TOTAL 0.7 mg/dL (0.2-1.3); Calcium 9.2 mg/dL (8.4-10.2); Creatinine 1 0.55 mg/dL (0.52-1.04); EST GLOMERULAR FILTRATION RATE 127.2 ML/MIN; Potassium 4.5 mmol/L (3.5-5.1)
[2024-01-17] MEDS ORDERED: CLINDAMYCIN-D5W 600 MG/50 ML*** 600 MG/50 ML BAG IV ONE (19:47)
[2024-01-17] MEDS ORDERED: Sodium Chloride 0.9% 1000 ML 1,000 ML ONE (19:47)
[2024-01-17] MEDS: CLINDAMYCIN-D5W 600 MG/50 ML*** 600 MG/50 ML BAG IV STA (19:48)
[2024-01-17] MEDS: Sodium Chloride 0.9% 1000 ML 1,000 ML IV SCH ×2 (19:48→21:43)
[2024-01-17] MEDS ORDERED: Zofran 4 MG/2 ML VIAL IV PRN (20:39)
[2024-01-17] MEDS ORDERED: TYLENOL 325 MG PO PRN (20:39)
[2024-01-17 21:23] LABS: Slide Review 1 YES
[2024-01-17] MEDS ORDERED: HUMALOG SQ PRN (22:24)
[2024-01-17] MEDS ORDERED: Docusate Sodium 100 MG PO PRN (22:24)
--- NOTE | 2024-01-17 22:41 | PCM.HP ---
History of Present Illness - Chief Complaint Chief Complaint: Cellulitis Date: 01/17/24 History of Present Illness: Ms. GEE is a 28 year old female with a past medical history significant for hypertension, diabetes and morbid obesity who presented to the hospital after she was noted to have worsening cellullitis on her lower extremities. She has been dealing with these issues for several months and has taken two separate courses of oral antibiotics (she believes one course was Bactrim but cannot recall the other) without much improvement. She had a fever up to 102 two days ago but was afebrile upon arrival. She denies any chest pain or shortness of breath. She denies any nausea, vomiting or diarrhea. She denies any dysuria, hematuria or frequency. She currently believes her right thigh is her most painful area at this time. - Review of Systems Constitutional: Fever, Fatigue, No Chills, No Lethargy Eyes: No Vision Changes Ears, Nose, & Throat: No Epistaxis Respiratory: No Cough, No Orthopnea, No Short Of Breath Cardiac: No Chest Pain, No Edema, No Palpitations Abdominal/Gastrointestinal: No Abdominal Pain, No Nausea, No Vomiting, No Diarrhea Genitourinary Symptoms: No Dysuria, No Frequency Musculoskeletal: No Arthralgias, No Back Pain Skin: Cellulitis, Induration, Pruritis Neurological: No Dizziness, No Focal Weakness Psychological: No Suicidal Ideations Endocrine: No Polyuria, No Polydipsia Medications & Allergies Home Medications: Home Medication List Amlodipine Besylate 5 mg [Norvasc 5 mg] 5 mg PO DAILY 04/08/20 [History Confirmed 01/17/24] Metoprolol Succinate [Toprol Xl] 25 mg PO TID 09/19/20 [History Confirmed 01/17/24] Ertugliflozin Pidolate [Steglatro] 5 mg PO DAILY 02/09/23 [History Confirmed 01/17/24] Omeprazole 40 mg PO DAILY 02/09/23 [History Confirmed 01/17/24] Nystatin Powder 15 gm [Nystop Powder 15 gm] 1 g TP BID #1 packet 02/13/23 [Rx Confirmed 01/17/24] Lactobacillus Acidophilus [Acidophilus TABLET] 1 tab PO DAILY 01/17/24 [History Confirmed 01/17/24] Allergies/Adverse Reactions: Allergies Allergy/AdvReac Type Severity Reaction Status Date / Time latex Allergy Mild Rash Verified 01/17/24 18:37 promethazine [From Phenergan] AdvReac Verified 01/17/24 18:37 - Past Medical History Past Medical History: Yes Neurological History: Migraines, Peripheral Neuropathy ENT History: No Pertinent History Cardiac History: Hypertension Respiratory History: No Pertinent History Endocrine Medical History: Diabetes Type II Musculoskelatal History: Fibromyalgia, Osteoarthritis GI Medical History: GERD History: No Pertinent History Pyscho-Social History: Anxiety, Bipolar, Depression, Panic Disorder Reproductive Disorders: No Pertinent History Comment: 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 (RIGHT WORSE THAN LEFT); FIBROMYALGIA, HAS AN INHALER FOR HER LUNGS HER WEIGHT PUTS MORE STRESS ON HER LUNGS, ETC.; BILATERAL CTS (RIGHT WORSE THAN LEFT), BLE ULCERS TO POSTERIOR LEGS - Female History Hx Last Menstrual Period: 1 week ago Are you now?: No - Past Surgical History Past Surgical History: Yes Neuro Surgical History: No Pertinent History Cardiac History: No Pertinent History Respiratory Surgery: No Pertinent History GI Surgical History: No Pertinent History Genitourinary Surgical Hx: No Pertinent History Musculskeletal Surgical Hx: No Pertinent History Female Surgical History: No Pertinent History, Section Other Surgical History: T&A - Social History Smoking Status: Never smoker How long have you smoked: 2 yr Exposure to second hand smoke: No Alcohol: None Drug Use: none - Social Determinants of Health Will the patient participate in the screening: Yes Do you worry about a steady place to live?: No Do you have any problems with any of the following?: No known problems In the past 12 months,have you had to go without utilities?: No Have you or anyone in your house had to go without enough: No Transportation Issues: Yes Has anyone in your support network made you feel unsafe?: No Does the patient want assistance with any of the above?: No - Physical Exam Vital Signs: Vital Signs - 24 hr Temp Pulse Resp BP BP Pulse Ox 01/17/24 20:50 97.9 F 85 20 120/75 01/17/24 20:00 89 23 158/74 99 01/17/24 19:30 88 13 156/69 98 01/17/24 19:07 96 01/17/24 18:39 98.1 F 93 H 20 159/83 100 General Appearance: no apparent distress Neurologic Exam: alert, oriented x 3 Ears, Nose, Throat Exam: dry mucous membranes Neck Exam: supple Respiratory Exam: No respiratory distress Cardiovascular Exam: regular rate/rhythm Gastrointestinal/Abdomen Exam: soft Extremity Exam: swelling, No pedal edema Skin Exam: rash, No jaundice Results - Labs Lab/Micro Results: Lab Results-Last 24 Hours 01/17/24 01/17/24 01/17/24 Range/Units 19:00 19:00 19:02 WBC 6.8 (4.0-10.5) x10^3/uL RBC 5.18 (4.1-5.4) x10^6/uL Hgb 10.9 L (12.0-16.0) g/dL Hct 37.8 (35-47) % MCV 73.0 L (78-100) fL MCH 21.0 L (26-32) pg MCHC 28.8 L (32-36) g/dL RDW 16.6 H (11.5-14.0) % Plt Count 322 (150-450) x10^3/uL MPV 10.5 (7.5-11.0) fL Gran % 64.9 (36.0-66.0) % Immature Gran % (Auto) 0.4 (0.00-0.4) % Nucleat RBC Rel Count 0.0 (0.00-0.1) % Eos # (Auto) 0.26 (0-0.5) x10^3/uL Immature Gran # (Auto) 0.03 (0.00-0.03) x10^3u/L Absolute Lymphs (auto) 1.65 (1.0-4.6) x10^3/uL Absolute Monos (auto) 0.42 (0.0-1.3) x10^3/uL Absolute Nucleated RBC 0.00 (0.00-0.01) x10^3u/L Lymphocytes % 24.2 (24.0-44.0) % Monocytes % 6.1 (0.0-12.0) % Eosinophils % 3.8 (0.00-5.0) % Basophils % 0.6 (0.0-0.4) % Absolute Granulocytes 4.43 (1.4-6.9) x10^3/uL Basophils # 0.04 (0-0.4) x10^3/uL Sodium 136 (135-145) mmol/L Potassium 4.5 (3.5-5.1) mmol/L Chloride 104 (98-107) mmol/L Carbon Dioxide 26 (22-30) mmol/L Anion Gap 11.3 (5-15) MEQ/L BUN 10 (7-17) mg/dL Creatinine 0.55 (0.52-1.04) mg/dL Estimated GFR 127.2 ML/MIN Glucose 103 (74-106) mg/dL Lactic Acid 2.0 (0.4-2.0) Calcium 9.2 (8.4-10.2) mg/dL Total Bilirubin 0.70 (0.2-1.3) mg/dL AST 54 H (14-36) U/L ALT 42 H (0-35) U/L Alkaline Phosphatase 52 (38-126) U/L Serum Total Protein 10.0 H (6.3-8.2) g/dL Albumin 3.9 (3.5-5.0) g/dL Slides for Path Review YES Assessment/Plan (1) Cellulitis Current Visit: Yes Status: Acute Assessment & Plan: Likely secondary to diabetes and obesity, not responding well enough to oral antibiotics 1. Admit to observation status 2. IV antibiotics with Zosyn 3. Check cultures 4. DVT/GI prophylaxis 5. Monitor dimensions of rash Code(s): L03.90 - CELLULITIS, UNSPECIFIED (2) Essential (primary) hypertension Current Visit: Yes Status: Acute Assessment & Plan: Under suboptimal control 1. Continue blood pressure meds 2. Low Na diet 3. Monitor blood pressure readings - may benefit from FOSTER or ARB Code(s): I10 - ESSENTIAL (PRIMARY) HYPERTENSION (3) Anemia Current Visit: Yes Status: Acute Qualifiers: Anemia type: iron deficiency Assessment & Plan: Likely from iron deficiency with low MCV 1. Check iron profile 2. Trend H/H Code(s): D64.9 - ANEMIA, UNSPECIFIED (4) Type 2 diabetes mellitus Current Visit: No Status: Acute Assessment & Plan: On Stelagtro (SGLT2) 1. Hold medication due to risk of infection 2. FSBS qAC/HS 3. Insulin sliding scale 4. Check urine protein:Cr ratio Telemedicine Encounter - Telemedicine Encounter Telemedicine Encounter: The entirety of this encounter was performed via Telemedicine"
[2024-01-18] MEDS ORDERED: PIPERACILLIN/TAZOBACTAM IV ONE ×2 (00:30→04:41)
[2024-01-18] MEDS ORDERED: Sodium Chloride 100ML MINI-BAG PLUS 100 ML IV ONE ×2 (00:30→04:41)
[2024-01-18] MEDS: PIPERACILLIN/TAZOBACTAM 3.375 GM in Sodium Chloride 100ML MINI-BAG PLUS 100 ML IV SCH (00:32)
[2024-01-18 05:00] LABS: Absolute Neutrophil Ct (ANC) 3.62 x10^3/uL (1.4-6.9); BASOPHIL % 0.7 % (0.0-0.4); Basophil (Absolute #) 0.04 x10^3/uL (0-0.4); Eosinophil % 3.9 % (0.00-5.0); Eosinophil (Absolute #) 0.22 x10^3/uL (0-0.5); Hematocrit 32.5 % (35-47); Hemoglobin 9.5 g/dL (12.0-16.0); IMMATURE GRAN # 0.01 x10^3u/L (0.00-0.03); IMMATURE GRAN % 0.2 % (0.00-0.4); Lymphocyte (Absolute #) 1.43 x10^3/uL (1.0-4.6); Lymphocytes % 25.4 % (24.0-44.0); Mean Cell Volume 72.7 fL (78-100); Mean Corpuscular Hemoglobin 21.3 pg (26-32); Mean Corpuscular Hgb Concent. 29.2 g/dL (32-36); Mean Platelet Volume 9.9 fL (7.5-11.0); Monocyte (Absolute #) 0.31 x10^3/uL (0.0-1.3); Monocytes % 5.5 % (0.0-12.0); Neutrophil % 64.3 % (36.0-66.0); Platelet Count 307 x10^3/uL (150-450); Red Blood Count 4.47 x10^6/uL (4.1-5.4); Red Cell Distribution Width 16.6 % (11.5-14.0); White Blood Count 5.6 x10^3/uL (4.0-10.5)
[2024-01-18 05:06] LABS: Appearance Clear (Clear); Bacteria None Seen /HPF (None Seen); Bilirubin Negative (Negative); Blood Negative (Negative); Epithelial Cells None Seen /HPF (None Seen); Glucose, Urine >=1000 mg/dL (Negative); Hyaline Casts NONE SEEN /LPF (0-2); Ketones Negative (Negative); Leukocyte Esterase Trace (Negative); Nitrite Negative (Negative); Protein,Urine Dip Negative (Negative); RBC 0-2 /HPF (0-5); Urobilinogen 0.2 mg/dL (0.2); WBC 0-2 /HPF (0-5)
[2024-01-18 05:11] LABS: ADD URINE CULTURE? NO (NO)
[2024-01-18 05:24] LABS: ALBUMIN 3.1 g/dL (3.5-5.0); ANION GAP 6.4 MEQ/L (5-15); BILIRUBIN,TOTAL 0.7 mg/dL (0.2-1.3); Calcium 8.5 mg/dL (8.4-10.2); Creatinine 1 0.56 mg/dL (0.52-1.04); EST GLOMERULAR FILTRATION RATE 126.6 ML/MIN; PREALBUMIN 7.18 mg/dL (17.6-36.0); Total Protein 8.2 g/dL (6.3-8.2)
--- NOTE | 2024-01-18 09:22 | PCM.NOTE ---
Date and Time: 01/18/24916 Subjective Assessment: 01/18/24 Ms. GEE is a 28 year old female with a past medical history significant for hypertension, diabetes, and morbid obesity. She presented to the hospital on 01/17/24 after she was noted to have worsening cellulitis on her lower extremities. She has been dealing with these issues for many years and worse in the last several months. She reports she has taken two separate courses of oral antibiotics (she believes one course was Bactrim but cannot recall the other) without much improvement. She had a fever up to 102 two days ago but was afebrile upon arrival to ER. She has not had a fever since admission. She currently states her right thigh is her most painful area at this time. Pain is currently 1/10. Erythema has improved since IV antibiotics started. Will have PT eval leg wounds and any home needs for weakness of BLLE. She has multiple wounds of abd folds. Continue IV antibiotics. Most likely d/c in am. She denies CP, SOB, abd. pain, N/V/D. - Review of Systems Constitutional: No Fever, No Chills Eyes: No Symptoms Ears, Nose, & Throat: No Symptoms Respiratory: No Cough, No Short Of Breath Cardiac: No Chest Pain, No Edema, No Syncope Abdominal/Gastrointestinal: No Abdominal Pain, No Nausea, No Vomiting, No Diarrhea Genitourinary Symptoms: No Dysuria Musculoskeletal: No Back Pain, No Neck Pain Skin: Cellulitis, Skin Lesions (of abd, abd skin folds, and BLLE), No Rash Neurological: No Dizziness, No Focal Weakness, No Sensory Changes Psychological: No Symptoms Endocrine: No Symptoms Hematologic/Lymphatic: No Symptoms Immunological/Allergic: No Symptoms Objective Exam General Appearance: no apparent distress, alert Neurologic Exam: alert, oriented x 3, cooperative, normal mood/affect, nml cerebellar function, sensation nml, No motor deficits Skin Exam: normal color, warm, dry, other (lesions of abd, abd skin folds, and BLLE, some erythema of BL upper extremites and abd folds.) Wound Assessment: Skin/Wound Assessment Wound/Incision Assessment Start: 01/17/24 20:45 Text: Status: Active Freq: Q6H Protocol: Document 01/18/24 02:00 MP (Rec: 01/18/24 03:21 MP [id number]) Wound Photo Photo Taken Yes Comment: multiple areas on bilateral lower extremity and abdomen Eye Exam: PERRL, EOMI, eyes nml inspection Ears, Nose, Throat Exam: normal ENT inspection, pharynx normal, moist mucous membranes Neck Exam: normal inspection, non-tender, supple, full range of motion Respiratory Exam: normal breath sounds, lungs clear, No respiratory distress Cardiovascular Exam: regular rate/rhythm, normal heart sounds Gastrointestinal/Abdomen Exam: soft, No tenderness, No mass Extremity Exam: normal inspection, normal range of motion Back Exam: normal inspection, normal range of motion, No CVA tenderness, No vertebral tenderness Pelvic Exam: deferred Rectal Exam: deferred Objective Data Vital Signs: Vital Signs - 24 hr Temp Pulse Resp BP BP Pulse Ox 01/18/24 07:55 97.6 F 82 22 121/57 96 01/18/24 04:00 96.9 F 89 26 H 113/62 96 01/18/24 00:00 97.9 F 85 20 120/75 99 01/17/24 20:50 97.9 F 85 20 120/75 01/17/24 20:00 89 23 158/74 99 01/17/24 19:30 88 13 156/69 98 01/17/24 19:07 96 01/17/24 18:39 98.1 F 93 H 20 159/83 100 Pain Assessment - Last Documented Pain Intensity 0 Intake and Output: Intake & Output 01/15/24 01/16/24 01/17/24 01/18/24 11:59 11:59 11:59 11:59 Intake Total 727 Balance 727 Weight 240.4 kg Lab Results: Lab Results-Last 24 Hours 01/17/24 01/17/24 01/17/24 Range/Units 19:00 19:00 19:02 WBC 6.8 (4.0-10.5) x10^3/uL RBC 5.18 (4.1-5.4) x10^6/uL Hgb 10.9 L (12.0-16.0) g/dL Hct 37.8 (35-47) % MCV 73.0 L (78-100) fL MCH 21.0 L (26-32) pg MCHC 28.8 L (32-36) g/dL RDW 16.6 H (11.5-14.0) % Plt Count 322 (150-450) x10^3/uL MPV 10.5 (7.5-11.0) fL Gran % 64.9 (36.0-66.0) % Immature Gran % (Auto) 0.4 (0.00-0.4) % Nucleat RBC Rel Count 0.0 (0.00-0.1) % Eos # (Auto) 0.26 (0-0.5) x10^3/uL Immature Gran # (Auto) 0.03 (0.00-0.03) x10^3u/L Absolute Lymphs (auto) 1.65 (1.0-4.6) x10^3/uL Absolute Monos (auto) 0.42 (0.0-1.3) x10^3/uL Absolute Nucleated RBC 0.00 (0.00-0.01) x10^3u/L Lymphocytes % 24.2 (24.0-44.0) % Monocytes % 6.1 (0.0-12.0) % Eosinophils % 3.8 (0.00-5.0) % Basophils % 0.6 (0.0-0.4) % Absolute Granulocytes 4.43 (1.4-6.9) x10^3/uL Basophils # 0.04 (0-0.4) x10^3/uL Sodium 136 (135-145) mmol/L Potassium 4.5 (3.5-5.1) mmol/L Chloride 104 (98-107) mmol/L Carbon Dioxide 26 (22-30) mmol/L Anion Gap 11.3 (5-15) MEQ/L BUN 10 (7-17) mg/dL Creatinine 0.55 (0.52-1.04) mg/dL Estimated GFR 127.2 ML/MIN Glucose 103 (74-106) mg/dL POC Glucometer (74 to 106) mg/dL Lactic Acid 2.0 (0.4-2.0) Calcium 9.2 (8.4-10.2) mg/dL Total Bilirubin 0.70 (0.2-1.3) mg/dL AST 54 H (14-36) U/L ALT 42 H (0-35) U/L Alkaline Phosphatase 52 (38-126) U/L Serum Total Protein 10.0 H (6.3-8.2) g/dL Albumin 3.9 (3.5-5.0) g/dL Prealbumin (17.6-36.0) mg/dL Urine Color (Yellow) Urine Appearance (Clear) Urine pH (4.6-8.0) Ur Specific [place] (1.005-1.030) Urine Protein (Negative) Urine Glucose (UA) (Negative) mg/dL Urine Ketones (Negative) Urine Blood (Negative) Urine Nitrite (Negative) Urine Bilirubin (Negative) Urine Urobilinogen (0.2) mg/dL Ur Leukocyte Esterase (Negative) U Hyaline Cast (Auto) (0-2) /LPF Urine Microscopic RBC (0-5) /HPF Urine Microscopic WBC (0-5) /HPF Ur Epithelial Cells (None Seen) /HPF Urine Bacteria (None Seen) /HPF Urine Culture Reflexed (NO) Ur Random Creatinine MG/DL U Random Total Protein (0-12) mg/dL Slides for Path Review YES 01/18/24 01/18/24 01/18/24 Range/Units 04:10 04:10 04:40 WBC 5.6 (4.0-10.5) x10^3/uL RBC 4.47 (4.1-5.4) x10^6/uL Hgb 9.5 L (12.0-16.0) g/dL Hct 32.5 L (35-47) % MCV 72.7 L (78-100) fL MCH 21.3 L (26-32) pg MCHC 29.2 L (32-36) g/dL RDW 16.6 H (11.5-14.0) % Plt Count 307 (150-450) x10^3/uL MPV 9.9 (7.5-11.0) fL Gran % 64.3 (36.0-66.0) % Immature Gran % (Auto) 0.2 (0.00-0.4) % Nucleat RBC Rel Count 0.0 (0.00-0.1) % Eos # (Auto) 0.22 (0-0.5) x10^3/uL Immature Gran # (Auto) 0.01 (0.00-0.03) x10^3u/L Absolute Lymphs (auto) 1.43 (1.0-4.6) x10^3/uL Absolute Monos (auto) 0.31 (0.0-1.3) x10^3/uL Absolute Nucleated RBC 0.00 (0.00-0.01) x10^3u/L Lymphocytes % 25.4 (24.0-44.0) % Monocytes % 5.5 (0.0-12.0) % Eosinophils % 3.9 (0.00-5.0) % Basophils % 0.7 (0.0-0.4) % Absolute Granulocytes 3.62 (1.4-6.9) x10^3/uL Basophils # 0.04 (0-0.4) x10^3/uL Sodium 135 (135-145) mmol/L Potassium 4.0 (3.5-5.1) mmol/L Chloride 104 (98-107) mmol/L Carbon Dioxide 28 (22-30) mmol/L Anion Gap 6.4 (5-15) MEQ/L BUN 9 (7-17) mg/dL Creatinine 0.56 (0.52-1.04) mg/dL Estimated GFR 126.6 ML/MIN Glucose 105 (74-106) mg/dL POC Glucometer (74 to 106) mg/dL Lactic Acid (0.4-2.0) Calcium 8.5 (8.4-10.2) mg/dL Total Bilirubin 0.70 (0.2-1.3) mg/dL AST 43 H (14-36) U/L ALT 37 H (0-35) U/L Alkaline Phosphatase 50 (38-126) U/L Serum Total Protein 8.2 (6.3-8.2) g/dL Albumin 3.1 L (3.5-5.0) g/dL Prealbumin 7.18 L (17.6-36.0) mg/dL Urine Color (Yellow) Urine Appearance (Clear) Urine pH (4.6-8.0) Ur Specific [place] (1.005-1.030) Urine Protein (Negative) Urine Glucose (UA) (Negative) mg/dL Urine Ketones (Negative) Urine Blood (Negative) Urine Nitrite (Negative) Urine Bilirubin (Negative) Urine Urobilinogen (0.2) mg/dL Ur Leukocyte Esterase (Negative) U Hyaline Cast (Auto) (0-2) /LPF Urine Microscopic RBC (0-5) /HPF Urine Microscopic WBC (0-5) /HPF Ur Epithelial Cells (None Seen) /HPF Urine Bacteria (None Seen) /HPF Urine Culture Reflexed (NO) Ur Random Creatinine 48.9 MG/DL U Random Total Protein (0-12) mg/dL Slides for Path Review 01/18/24 01/18/24 01/18/24 Range/Units 04:40 04:40 07:37 WBC (4.0-10.5) x10^3/uL RBC (4.1-5.4) x10^6/uL Hgb (12.0-16.0) g/dL Hct (35-47) % MCV (78-100) fL MCH (26-32) pg MCHC (32-36) g/dL RDW (11.5-14.0) % Plt Count (150-450) x10^3/uL MPV (7.5-11.0) fL Gran % (36.0-66.0) % Immature Gran % (Auto) (0.00-0.4) % Nucleat RBC Rel Count (0.00-0.1) % Eos # (Auto) (0-0.5) x10^3/uL Immature Gran # (Auto) (0.00-0.03) x10^3u/L Absolute Lymphs (auto) (1.0-4.6) x10^3/uL Absolute Monos (auto) (0.0-1.3) x10^3/uL Absolute Nucleated RBC (0.00-0.01) x10^3u/L Lymphocytes % (24.0-44.0) % Monocytes % (0.0-12.0) % Eosinophils % (0.00-5.0) % Basophils % (0.0-0.4) % Absolute Granulocytes (1.4-6.9) x10^3/uL Basophils # (0-0.4) x10^3/uL Sodium (135-145) mmol/L Potassium (3.5-5.1) mmol/L Chloride (98-107) mmol/L Carbon Dioxide (22-30) mmol/L Anion Gap (5-15) MEQ/L BUN (7-17) mg/dL Creatinine (0.52-1.04) mg/dL Estimated GFR ML/MIN Glucose (74-106) mg/dL POC Glucometer 107 H (74 to 106) mg/dL Lactic Acid (0.4-2.0) Calcium (8.4-10.2) mg/dL Total Bilirubin (0.2-1.3) mg/dL AST (14-36) U/L ALT (0-35) U/L Alkaline Phosphatase (38-126) U/L Serum Total Protein (6.3-8.2) g/dL Albumin (3.5-5.0) g/dL Prealbumin (17.6-36.0) mg/dL Urine Color Yellow (Yellow) Urine Appearance Clear (Clear) Urine pH 7.0 (4.6-8.0) Ur Specific [place] 1.020 (1.005-1.030) Urine Protein Negative (Negative) Urine Glucose (UA) >=1000 A (Negative) mg/dL Urine Ketones Negative (Negative) Urine Blood Negative (Negative) Urine Nitrite Negative (Negative) Urine Bilirubin Negative (Negative) Urine Urobilinogen 0.2 (0.2) mg/dL Ur Leukocyte Esterase Trace A (Negative) U Hyaline Cast (Auto) NONE SEEN (0-2) /LPF Urine Microscopic RBC 0-2 (0-5) /HPF Urine Microscopic WBC 0-2 (0-5) /HPF Ur Epithelial Cells None Seen (None Seen) /HPF Urine Bacteria None Seen (None Seen) /HPF Urine Culture Reflexed NO (NO) Ur Random Creatinine MG/DL U Random Total Protein 6 (0-12) mg/dL Slides for Path Review Assessment/Plan (1) Cellulitis Current Visit: Yes Status: Acute Assessment & Plan: - Acute on chronic - BLLE, abd folds - Zosyn - Ns@50 - pillow cases to abd folds - antibiotic ointment - PT eval Code(s): L03.90 - CELLULITIS, UNSPECIFIED (2) Skin lesions Current Visit: Yes Status: Acute Assessment & Plan: - multiple lesions of abd skin folds, fanny-area, and BLLE - PT eval for leg lesions- wound care. - use pillow cases in between abd folds to heal skin - Apply Bacitracin with zinc to affected areas BID Code(s): L98.9 - DISORDER OF THE SKIN AND SUBCUTANEOUS TISSUE, UNSPECIFIED (3) Anemia Current Visit: Yes Status: Acute Qualifiers: Anemia type: iron deficiency Assessment & Plan: - Hgb stable 9.5 - Iron panel- pending - hypochromic, microcytic anemia Code(s): D64.9 - ANEMIA, UNSPECIFIED (4) Essential (primary) hypertension Current Visit: Yes Status: Acute Assessment & Plan: - Controlled - continue home meds Code(s): I10 - ESSENTIAL (PRIMARY) HYPERTENSION (5) Type 2 diabetes mellitus Current Visit: No Status: Acute Qualifiers: Diabetes mellitus usp insulin use: with usp use Diabetes mellitus complication status: with circulatory complication Diabetes mellitus complication detail: with other circulatory complications Qualified Code(s): E11.59 - Type 2 diabetes mellitus with other circulatory complications; Z79.4 - crusher tender (current) use of insulin Assessment & Plan: On Stelagtro (SGLT2) 1. Hold medication due to risk of infection 2. FSBS qAC/HS 3. Insulin sliding scale 4. A1C 5. controlled per old labs 7. carb controlled diet (6) Morbid obesity with BMI of 70 and over, adult Current Visit: Yes Status: Chronic Assessment & Plan: - advised ADA diet and exercise control VTE: Lovenox PPI: Pantoprazole Next of KIN: Spouse- Ortiz Do [phone] D/C plan: tomorrow? Code status: Full Code(s): E66.01 - MORBID (SEVERE) OBESITY DUE TO EXCESS CALORIES; Z68.45 - BODY MASS INDEX [BMI] 70 OR GREATER, ADULT
[2024-01-18] MEDS: NYSTOP POWDER 15 GM TP SCH (09:34)
[2024-01-18] MEDS: ENOXAPARIN SODIUM SQ SCH (09:35)
[2024-01-18] MEDS: Lopressor 25MG Tab PO SCH (09:35)
[2024-01-18] MEDS: Protonix 40MG Tablet PO SCH (09:35)
[2024-01-18] MEDS: NORVASC 5 MG PO SCH (09:35)
[2024-01-18 10:58] LABS: RETICULOCYTE % 1.8 % (0.6-2.6); RETICULOCYTE HEMOGLOBIN 21.6 pg (28-38)
[2024-01-18 11:19] LABS: Iron 42 ug/dL (37-170); Iron Saturation 14 % (20-39); TIBC 293 ug/dL (265-462)
[2024-01-18 12:18] LABS: Ferritin 26.8 ng/mL (6.24-137); Folate (Folic Acid) 5.58 ng/mL (2.76 - >20)
[2024-01-18] MEDS: BACIGUENT 30 GM TP SCH (13:02)
[2024-01-18] MEDS: PIPERACILLIN/TAZOBACTAM 3.375 GM in Dextrose 5%/Water IV Soln. 100ML PLUS BAG 100 ML IV SCH (18:28)
[2024-01-18] MEDS: Toprol-Xl 25MG Tablets PO SCH (21:47)
[2024-01-19 04:20] VITALS: TEMP 97.9
[2024-01-19 06:26] LABS: Hematocrit 35.5 % (35-47); Hemoglobin 10.3 g/dL (12.0-16.0); Mean Cell Volume 73.2 fL (78-100); Mean Corpuscular Hemoglobin 21.2 pg (26-32); Mean Platelet Volume 9.8 fL (7.5-11.0); Platelet Count 317 x10^3/uL (150-450); Red Blood Count 4.85 x10^6/uL (4.1-5.4); Red Cell Distribution Width 16.8 % (11.5-14.0); White Blood Count 4.8 x10^3/uL (4.0-10.5)
[2024-01-19 06:36] LABS: ALBUMIN 3.4 g/dL (3.5-5.0); ANION GAP 8.9 MEQ/L (5-15); BILIRUBIN,TOTAL 0.7 mg/dL (0.2-1.3); Calcium 8.6 mg/dL (8.4-10.2); Creatinine 1 0.6 mg/dL (0.52-1.04); EST GLOMERULAR FILTRATION RATE 124.5 ML/MIN; Total Protein 8.5 g/dL (6.3-8.2)
[2024-01-19 08:05] VITALS: BP 118/58; PULSE 78; RESP 16; O2SAT 95
[2024-01-19] MEDS: FEOSOL 325 MG PO SCH (09:08)
[2024-01-19] MEDS: Acidophilus TABLET PO SCH (09:08)
--- NOTE | 2024-01-19 09:11 | PCM.DS ---
Discharge Summary Date of Admission: 01/17/24 20:33 Date of Discharge: 01/19/24 Admitting Physician: TORIN HARDIN MD Consults: Consults on Case 01/17/24 18:57 O [facility] Referral ONCE Primary Care Provider: ALF VELEZ Allergies Allergies latex Allergy (Mild, Verified 01/17/24 18:37) Rash promethazine [From Phenergan] Adverse Reaction (Verified 01/17/24 18:37) Not taken before. Reported multiple family members having severe reactions to phernergan. Hospital Summary - Hospital Course Hospital Course: 01/18/24 Ms. GEE is a 28 year old female with a past medical history significant for hypertension, diabetes, and morbid obesity. She presented to the hospital on 01/17/24 after she was noted to have worsening cellulitis on her lower extremities. She has been dealing with these issues for many years and worse in the last several months. She reports she has taken two separate courses of oral antibiotics (she believes one course was Bactrim but cannot recall the other) without much improvement. She had a fever up to 102 two days ago but was afebrile upon arrival to ER. She has not had a fever since admission. She currently states her right thigh is her most painful area at this time. Pain is currently 1/10. Erythema has improved since IV antibiotics started. Will have PT eval leg wounds and any home needs for weakness of BLLE. She has multiple wounds of abd folds. Continue IV antibiotics. Most likely d/c in am. She denies CP, SOB, abd. pain, N/V/D. 01/18 Pt resting in bed. Cellulitis improved and she is feeling much better. She would like to go home today. Will continue OP antibiotics. Discussed good hygiene to prevent infection. She denies any further concerns at this time. - Vitals & Intake/Output Vital Signs: Vital Signs Temperature 97.9 F 01/19/24 08:00 Pulse Rate 78 01/19/24 08:00 Respiratory Rate 16 01/19/24 08:00 Blood Pressure 118/58 01/19/24 08:00 O2 Sat by Pulse Oximetry 95 01/19/24 08:00 Intake & Output: Intake & Output 01/16/24 01/17/24 01/18/24 01/19/24 11:59 11:59 11:59 11:59 Intake Total 847 2674 Balance 840 4629 Weight 240.4 kg - Lab Result Diagrams: 01/19/24 05:34 01/19/24 05:34 Lab Results-Last 24 Hrs: Lab Results-Last 24 Hours 01/18/24 01/18/24 01/18/24 Range/Units 04:00 04:10 04:10 WBC (4.0-10.5) x10^3/uL RBC (4.1-5.4) x10^6/uL Hgb (12.0-16.0) g/dL Hct (35-47) % MCV (78-100) fL MCH (26-32) pg MCHC (32-36) g/dL RDW (11.5-14.0) % Plt Count (150-450) x10^3/uL MPV (7.5-11.0) fL Reticulocyte % (Auto) 1.8 (0.6-2.6) % Retic Hgb Content 21.6 L (28-38) pg Sodium (135-145) mmol/L Potassium (3.5-5.1) mmol/L Chloride (98-107) mmol/L Carbon Dioxide (22-30) mmol/L Anion Gap (5-15) MEQ/L BUN (7-17) mg/dL Creatinine (0.52-1.04) mg/dL Estimated GFR ML/MIN Glucose (74-106) mg/dL POC Glucometer (74 to 106) mg/dL Hemoglobin A1c 6.24 H (4.5-6.0) % Calcium (8.4-10.2) mg/dL Iron (37-170) ug/dL TIBC (265-462) ug/dL Iron Saturation (20-39) % Ferritin 26.8 (6.24-137) ng/mL Total Bilirubin (0.2-1.3) mg/dL AST (14-36) U/L ALT (0-35) U/L Alkaline Phosphatase (38-126) U/L Serum Total Protein (6.3-8.2) g/dL Albumin (3.5-5.0) g/dL Vitamin B12 311 (239-931) pg/mL Folic Acid 5.58 (2.76 - >20) ng/mL 01/18/24 01/18/2401/17/24 Range/Units 04:10 12:11 16:38 WBC (4.0-10.5) x10^3/uL RBC (4.1-5.4) x10^6/uL Hgb (12.0-16.0) g/dL Hct (35-47) % MCV (78-100) fL MCH (26-32) pg MCHC (32-36) g/dL RDW (11.5-14.0) % Plt Count (150-450) x10^3/uL MPV (7.5-11.0) fL Reticulocyte % (Auto) (0.6-2.6) % Retic Hgb Content (28-38) pg Sodium (135-145) mmol/L Potassium (3.5-5.1) mmol/L Chloride (98-107) mmol/L Carbon Dioxide (22-30) mmol/L Anion Gap (5-15) MEQ/L BUN (7-17) mg/dL Creatinine (0.52-1.04) mg/dL Estimated GFR ML/MIN Glucose (74-106) mg/dL POC Glucometer 112 H 103 (74 to 106) mg/dL Hemoglobin A1c (4.5-6.0) % Calcium (8.4-10.2) mg/dL Iron 42 (37-170) ug/dL TIBC 293 (265-462) ug/dL Iron Saturation 14 L (20-39) % Ferritin (6.24-137) ng/mL Total Bilirubin (0.2-1.3) mg/dL AST (14-36) U/L ALT (0-35) U/L Alkaline Phosphatase (38-126) U/L Serum Total Protein (6.3-8.2) g/dL Albumin (3.5-5.0) g/dL Vitamin B12 (239-931) pg/mL Folic Acid (2.76 - >20) ng/mL 01/18/24 01/19/24 01/19/24 Range/Units 21:52 05:34 05:34 WBC 4.8 (4.0-10.5) x10^3/uL RBC 4.85 (4.1-5.4) x10^6/uL Hgb 10.3 L (12.0-16.0) g/dL Hct 35.5 (35-47) % MCV 73.2 L (78-100) fL MCH 21.2 L (26-32) pg MCHC 29.0 L (32-36) g/dL RDW 16.8 H (11.5-14.0) % Plt Count 317 (150-450) x10^3/uL MPV 9.8 (7.5-11.0) fL Reticulocyte % (Auto) (0.6-2.6) % Retic Hgb Content (28-38) pg Sodium 135 (135-145) mmol/L Potassium 4.0 (3.5-5.1) mmol/L Chloride 104 (98-107) mmol/L Carbon Dioxide 26 (22-30) mmol/L Anion Gap 8.9 (5-15) MEQ/L BUN 9 (7-17) mg/dL Creatinine 0.60 (0.52-1.04) mg/dL Estimated GFR 124.5 ML/MIN Glucose 110 H (74-106) mg/dL POC Glucometer 118 H (74 to 106) mg/dL Hemoglobin A1c (4.5-6.0) % Calcium 8.6 (8.4-10.2) mg/dL Iron (37-170) ug/dL TIBC (265-462) ug/dL Iron Saturation (20-39) % Ferritin (6.24-137) ng/mL Total Bilirubin 0.70 (0.2-1.3) mg/dL AST 45 H (14-36) U/L ALT 42 H (0-35) U/L Alkaline Phosphatase 52 (38-126) U/L Serum Total Protein 8.5 H (6.3-8.2) g/dL Albumin 3.4 L (3.5-5.0) g/dL Vitamin B12 (239-931) pg/mL Folic Acid (2.76 - >20) ng/mL 01/19/24 Range/Units 07:41 WBC (4.0-10.5) x10^3/uL RBC (4.1-5.4) x10^6/uL Hgb (12.0-16.0) g/dL Hct (35-47) % MCV (78-100) fL MCH (26-32) pg MCHC (32-36) g/dL RDW (11.5-14.0) % Plt Count (150-450) x10^3/uL MPV (7.5-11.0) fL Reticulocyte % (Auto) (0.6-2.6) % Retic Hgb Content (28-38) pg Sodium (135-145) mmol/L Potassium (3.5-5.1) mmol/L Chloride (98-107) mmol/L Carbon Dioxide (22-30) mmol/L Anion Gap (5-15) MEQ/L BUN (7-17) mg/dL Creatinine (0.52-1.04) mg/dL Estimated GFR ML/MIN Glucose (74-106) mg/dL POC Glucometer 108 H (74 to 106) mg/dL Hemoglobin A1c (4.5-6.0) % Calcium (8.4-10.2) mg/dL Iron (37-170) ug/dL TIBC (265-462) ug/dL Iron Saturation (20-39) % Ferritin (6.24-137) ng/mL Total Bilirubin (0.2-1.3) mg/dL AST (14-36) U/L ALT (0-35) U/L Alkaline Phosphatase (38-126) U/L Serum Total Protein (6.3-8.2) g/dL Albumin (3.5-5.0) g/dL Vitamin B12 (239-931) pg/mL Folic Acid (2.76 - >20) ng/mL Micro Results-Entire Visit: Accuchecks Date 01/19/24 Date 01/18/24 Date 01/18/24 Time 08:07 Time 17:30 Time 12:27 - Procedures and Test Procedures and Tests throughout Hospitalization: Therapy Orders & Screens 01/18/24 09:19 PT Eval & Treat ( Order) ONCE Reason for Eval:: BLLE weakness and BLLE wounds Diagnosis: Cellulitis Discharge Exam General Appearance: no apparent distress, alert, obese Neurologic Exam: alert, oriented x 3, cooperative, normal mood/affect, nml cerebellar function, sensation nml, No motor deficits Eye Exam: PERRL, EOMI, eyes nml inspection Ears, Nose, Throat Exam: normal ENT inspection, pharynx normal, moist mucous membranes Neck Exam: normal inspection, non-tender, supple, full range of motion Respiratory Exam: normal breath sounds, lungs clear, No respiratory distress Cardiovascular Exam: regular rate/rhythm, normal heart sounds Gastrointestinal/Abdomen Exam: soft, No tenderness, No mass Pelvic Exam: deferred Rectal Exam: deferred Back Exam: normal inspection, normal range of motion, No CVA tenderness, No vertebral tenderness Extremity Exam: normal inspection, normal range of motion, inflammation (of abd folds and thighs- improved) Skin Exam: normal color, warm, dry Wound Assessment: Skin/Wound Assessment Wound/Incision Assessment Start: 01/17/24 20:45 Text: Status: Active Freq: Q6H Protocol: Document 01/19/24 08:00 RB (Rec: 01/19/24 08:13 RB [id number]) Wound Photo Photo Taken Yes Comment: multiple areas on bilateral lower extremity and abdomen Final Diagnosis/Problem List - Final Discharge Diagnosis/Problem (1) Cellulitis Current Visit: Yes Status: Acute Code(s): L03.90 - CELLULITIS, UNSPECIFIED (2) Skin lesions Current Visit: Yes Status: Acute Code(s): L98.9 - DISORDER OF THE SKIN AND SUBCUTANEOUS TISSUE, UNSPECIFIED (3) Anemia Current Visit: Yes Status: Acute Code(s): D64.9 - ANEMIA, UNSPECIFIED (4) Essential (primary) hypertension Current Visit: Yes Status: Acute Code(s): I10 - ESSENTIAL (PRIMARY) HYPERTENSION (5) Type 2 diabetes mellitus Current Visit: No Status: Acute (6) Morbid obesity with BMI of 70 and over, adult Current Visit: Yes Status: Chronic Assessment & Plan: (1) Cellulitis Current Visit: Yes Status: Acute Assessment & Plan: - Acute on chronic - BLLE, abd folds - Zosyn - Ns@50 - pillow cases to abd folds - antibiotic ointment - PT eval Code(s): L03.90 - CELLULITIS, UNSPECIFIED (2) Skin lesions Current Visit: Yes Status: Acute Assessment & Plan: - multiple lesions of abd skin folds, fanny-area, and BLLE - PT eval for leg lesions- wound care. - use pillow cases in between abd folds to heal skin - Apply Bacitracin with zinc to affected areas BID Code(s): L98.9 - DISORDER OF THE SKIN AND SUBCUTANEOUS TISSUE, UNSPECIFIED (3) Anemia Current Visit: Yes Status: Acute Qualifiers: Anemia type: iron deficiency Assessment & Plan: - Hgb stable 9.5 - Iron panel- pending - hypochromic, microcytic anemia Code(s): D64.9 - ANEMIA, UNSPECIFIED (4) Essential (primary) hypertension Current Visit: Yes Status: Acute Assessment & Plan: - Controlled - continue home meds Code(s): I10 - ESSENTIAL (PRIMARY) HYPERTENSION (5) Type 2 diabetes mellitus Current Visit: No Status: Acute Qualifiers: Diabetes mellitus watermaster insulin use: with watermaster use Diabetes mellitus complication status: with circulatory complication Diabetes mellitus complication detail: with other circulatory complications Qualified Code(s): E11.59 - Type 2 diabetes mellitus with other circulatory complications; Z79.4 - adjunct faculty for medical terminology (current) use of insulin Assessment & Plan: On Stelagtro (SGLT2) 1. Hold medication due to risk of infection 2. FSBS qAC/HS 3. Insulin sliding scale 4. A1C 5. controlled per old labs 7. carb controlled diet (6) Morbid obesity with BMI of 70 and over, adult Current Visit: Yes Status: Chronic Assessment & Plan: - advised ADA diet and exercise control Code(s): E66.01 - MORBID (SEVERE) OBESITY DUE TO EXCESS CALORIES; Z68.45 - BODY MASS INDEX [BMI] 70 OR GREATER, ADULT - Discharge Discharge Date: 01/19/24 Disposition: Home, Self-Care Condition: Stable Prescriptions: Continue Amlodipine Besylate 5 mg [Norvasc 5 mg] 5 mg PO DAILY Metoprolol Succinate [Toprol Xl] 25 mg PO TID Ertugliflozin Pidolate [Steglatro] 5 mg PO DAILY Omeprazole 40 mg PO DAILY Nystatin Powder 15 gm [Nystop Powder 15 gm] 1 g TP BID #1 packet Lactobacillus Acidophilus [Acidophilus TABLET] 1 tab PO DAILY Additional Instructions: BATHE DAILY AND APPLY BARRIER CREAM TO LEGS AND WOUNDS TWICE A DAY. Do not pick at wounds. Wash hands before using any creams to affected areas, and wash hands after. Follow up with: ALF VELEZ NP [Primary Care Provider] -
[2024-01-19] MEDS ORDERED: NON-FORMULARY ITEM (Omeprazole [Omeprazole] 40 MG Capsule.Dr) PO SCH (10:00)
== END 2024-01-19 11:00 | disposition home or self-care (01) ==
LOC: ED 18:26 → MED SURG 20:33
PROVIDERS: ADMIT Internal Medicine Nephrology; ATTEND Internal Medicine Nephrology
DX: L03.116 Cellulitis of left lower limb (principal); L03.115 Cellulitis of right lower limb; L98.9 Disorder of the skin and subcutaneous tissue, unspecified; D64.9 Anemia, unspecified; I10 Essential (primary) hypertension; E66.01 Morbid (severe) obesity due to excess calories; E11.59 Type 2 diabetes mellitus with other circulatory complications; Z79.4 Long term (current) use of insulin; Z68.45 Body mass index [BMI] 70 or greater, adult; Z79.899 Other long term (current) drug therapy; Z59.82 Transportation insecurity
CPT/HCPCS: 36000; 36415; 80053; 81001; 82570; 82607; 82728; 82746; 82947; 83036; 83540; 83550; 83605; 84134; 84156; 85025; 85027; 85045; 85046; 87040; 94760; 96365; 97161; 99283; G0378; Q3014; J1650; A9270-GY

== ENCOUNTER 2025-09-09 11:32 | Emergency (ER) | payer OTHER ==
--- NOTE | 2025-09-09 11:56 | ERPHSYRPT ---
- History of Present Illness Time Seen by Provider: 09/09/25 11:56 Source: patient, family Exam Limitations: no limitations Physician History: This is a morbidly obese 29-year-old white female patient arrives with private vehicle and is a patient of nurse practitioner Shreyas with a complaint of left earache and sinus pressure that began 3 days ago. She also states her left face feels warm. She does not have any numbness. Her left ear aches and feels full. She also feels some pressure behind her left eye as well. Patient is concerned she has an ear infection. Her second issue is that she feels palpitations of her heart. She was seen by Dr. Bloom, the patient's banking and finance instructor today and the twelve-lead EKG was performed which was normal per her and her 's report. She has no complaints of chest pain. She wanted this checked again before she left today. Patient has multiple medical problems including morbid obesity, bipolar disorder, depression, panic attacks, hypertension, diabetes, fibromyalgia, migraine headaches, peripheral neuropathy and gastroesophageal reflux disease Timing/Duration: gradual onset Severity: mild ENT Location: ear (L) Modifying Factors: Improves With: nothing Associated Symptoms: ear pain (L) (Describes it as an ache and pressure), other (Occasional palpitations), No headache Allergies/Adverse Reactions: latex Allergy (Mild, Verified 09/09/25 12:00) Rash promethazine [From Phenergan] Adverse Reaction (Verified 09/09/25 12:00) Not taken before. Reported multiple family members having severe reactions to phernergan. Home Medications: Amlodipine Besylate 5 mg [Norvasc 5 mg] 5 mg PO DAILY 04/08/20 [History] Metoprolol Succinate [Toprol Xl] 12.5 mg PO TID 09/19/20 [History] Lactobacillus Acidophilus [Acidophilus TABLET] 1 tab PO DAILY 01/17/24 [History] Albuterol Common Canister [Ventolin Common Canister] 2 puff IH Q4H 05/20/25 [History] Cetirizine HCl [All Day Allergy Relief] 10 mg PO DAILY 05/20/25 [History] Ergocalciferol (Vitamin D2) [Vitamin D2] 1 each PO 2XW 05/20/25 [History] Famotidine 20 mg [Pepcid 20 MG] 20 mg PO BID 05/20/25 [History] Ferrous Sulfate 325 mg [Feosol 325 mg] 325 mg PO DAILY 05/20/25 [History] Metformin HCl 500 mg [Glucophage 500 MG] 500 mg PO BIDWM 05/20/25 [History] Hx Tetanus, Diphtheria Vaccination/Date Given: Yes Hx Influenza Vaccination/Date Given: No Hx Pneumococcal Vaccination/Date Given: No Travel Risk - International Travel Have you traveled outside of the country in past 3 weeks: No - Emerging Infectious Disease Are you exhibiting symptoms associated with any current EIDs: No - Review of Systems Constitutional: No Symptoms Eyes: No Symptoms Ears, Nose, & Throat: Ear Pain (Left earache described as pressure) Respiratory: No Symptoms Cardiac: Palpitations, No Chest Pain Abdominal/Gastrointestinal: No Symptoms Genitourinary Symptoms: No Symptoms Musculoskeletal: No Symptoms Skin: No Symptoms Neurological: No Symptoms Psychological: No Symptoms Endocrine: No Symptoms Hematologic/Lymphatic: No Symptoms Immunological/Allergic: No Symptoms All Other Systems: Reviewed and Negative - Past Medical History Pertinent Past Medical History: Yes Neurological History: Migraines, Peripheral Neuropathy ENT History: No Pertinent History Cardiac History: Hypertension Respiratory History: No Pertinent History Endocrine Medical History: Diabetes Type II Musculoskeletal History: Fibromyalgia, Osteoarthritis GI Medical History: GERD History: No Pertinent History Psycho-Social History: Anxiety, Bipolar, Depression, Panic Disorder Female Reproductive Disorders: No Pertinent History Other Medical History: 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 (RIGHT WORSE THAN LEFT); FIBROMYALGIA, HAS AN INHALER FOR HER LUNGS HER WEIGHT PUTS MORE STRESS ON HER LUNGS, ETC.; BILATERAL CTS (RIGHT WORSE THAN LEFT), BLE ULCERS TO POSTERIOR LEGS - Past Surgical History Past Surgical History: Yes Neuro Surgical History: No Pertinent History Cardiac: No Pertinent History Respiratory: No Pertinent History Gastrointestinal: No Pertinent History Genitourinary: No Pertinent History Musculoskeletal: No Pertinent History Female Surgical History: No Pertinent History, Section Other Surgical History: T&A - Female History Hx Last Menstrual Period: now - Social History Smoking Status: Never smoker Exposure to second hand smoke: No Drug Use: none - Social Determinants of Health Will the patient participate in the screening: Yes Do you worry about a steady place to live?: No In the past 12 months,have you had to go without utilities?: No Transportation Issues: No Has anyone in your support network made you feel unsafe?: No Have you or anyone in your house had to go w/o enough food: No - Nursing Vital Signs Nursing Vital Signs: Initial Vital Signs Temperature 97.7 F 09/09/25 11:32 Pulse Rate 98 H 09/09/25 11:32 Respiratory Rate 18 09/09/25 11:32 Blood Pressure 128/68 09/09/25 11:32 O2 Sat by Pulse Oximetry 98 09/09/25 11:32 Pain Scale Pain Intensity 2 - Physical Exam General Appearance: no apparent distress, alert, anxiety, obese Eye Exam: bilateral eye: normal inspection, PERRL, EOMI Ear Exam: right ear: canal normal, TM normal, left ear: erythema, TM dull, bilateral ear: auricle normal Nasal Exam: normal inspection Throat Exam: normal Neck Exam: normal inspection, non-tender, supple, full range of motion Cardiovascular/Respiratory Exam: chest non-tender, normal breath sounds, regular rate/rhythm, heart sounds normal, no respiratory distress Abdominal Exam: non-tender Neurologic Exam: alert, oriented x 3, cooperative, data modeler II-XII nml as tested, normal mood/affect, sensation nml Skin Exam: normal color, warm, dry SpO2 Interpretation: normal O2 Delivery: Room Air - Course Nursing assessment & vital signs reviewed: Yes EKG Interpreted by Me: RATE (76), Sinus Rhythm, NORMAL AXIS, NORMAL INTERVALS, NORMAL QRS, Other (QTc is 426. No acute ischemia) Ordered Tests: Active Orders 24 hr Category Date Time Status EKG-ER Only STAT Care 09/09/25 12:40 Completed BMP Stat Lab 09/09/25 12:50 Completed MAGNESIUM Stat Lab 09/09/25 12:50 Completed TROPONIN Q4H Lab 09/09/25 12:50 Completed TROPONIN Q4H Lab 09/09/25 16:45 Ordered TROPONIN Q4H Lab 09/09/25 20:45 Ordered Lab/Rad Data: Laboratory Result Diagrams 09/09/25 12:50 Laboratory Results 09/09/25 09/09/25 Range/Units 12:50 12:50 Sodium 136 (135-145) mmol/L Potassium 4.1 (3.5-5.1) mmol/L Chloride 104 (98-107) mmol/L Carbon Dioxide 25 (22-30) mmol/L Anion Gap 11.7 (5-15) MEQ/L BUN 6 L (7-17) mg/dL Creatinine 0.48 L (0.52-1.04) mg/dL Estimated GFR 130.6 ML/MIN Glucose 115 H (74-106) mg/dL Calcium 9.1 (8.4-10.2) mg/dL Magnesium 1.7 (1.6-2.3) mg/dL Troponin I < 0.012 (0.000-0.033) ng/mL - Progress Progress: improved, re-examined Progress Note: 09/09/25 13:30 My medical decision making and the assignment of moderate complexity to this patient's medical issue today is based on review of the patient's past medical history, reviewed patient's medication list, reviewed the patient drug allergy list, history present illness and physical findings on examination. The workup in this patient includes twelve-lead EKG, BMP, magnesium level and troponin level. This was at the request of the patient. Differential diagnosis includes but is not limited to left otitis media, electrolyte abnormalities, arrhythmia, myocardial infarction, palpitations 09/09/25 13:33 I interpreted the patient's laboratory data results. Based on laboratory data results, there are no acute, emergent medical issues. Counseled pt/family regarding: lab results, diagnosis, need for follow-up Medical Desision Making - Diagnostic Testing Diagnostic test were ordered, analyzed, and reviewed by me: Yes - Risk of complications Low Risk: Low risk of morbidity from additional dx testing or treatment The pt has a mod risk of morbidity or mortality based on: Need for prescription drug management - Departure Departure Disposition: Home Clinical Impression: Left otitis media, Palpitations Condition: Stable Critical Care Time: No Referrals: ALF VELEZ NP [Primary Care Provider, [facility]] - Follow up/PCP as directed Additional Instructions: Take your antibiotics and other medications as prescribed. Take your antibiotics with food. Call your banking and finance instructor today, to make arranges for follow-up appointment for further evaluation and management of your palpitations Prescriptions: Amoxicillin/Potassium Clav [Augmentin 500-125 Tablet] 1 each PO TID 7 Days #21 tablet
[2025-09-09 12:56] VITALS: TEMP 98; O2SAT 99
[2025-09-09 13:09] LABS: Calcium 9.1 mg/dL (8.4-10.2); Carbon Dioxide 25.0 mmol/L (22-30); Creatinine 1 0.48 mg/dL (0.52-1.04); EST GLOMERULAR FILTRATION RATE 130.6 ML/MIN; Glucose 115.0 mg/dL (74-106); Potassium 4.1 mmol/L (3.5-5.1)
[2025-09-09 13:53] VITALS: RESP 20
[2025-09-09 14:07] VITALS: BP 132/70; PULSE 78
== END 2025-09-09 14:06 | disposition home or self-care (01) ==
LOC: ED 11:32
DX: H66.92 Otitis media, unspecified, left ear (principal); R00.2 Palpitations; H92.02 Otalgia, left ear; R51.9 Headache, unspecified; I10 Essential (primary) hypertension; E11.42 Type 2 diabetes mellitus with diabetic polyneuropathy; Z79.84 Long term (current) use of oral hypoglycemic drugs; Z79.899 Other long term (current) drug therapy